=== PATIENT | female | born 1945 | race Caucasian/White ===

== ENCOUNTER 2017-06-01 20:16 | Inpatient (IN) | payer OTHER ==
[2017-06-01 20:16] VITALS: BMI 35.9
[2017-06-01] MEDS ORDERED: Sodium Chloride 0.9% 1,000 ML IV ONE (21:55)
[2017-06-01] MEDS ORDERED: Sodium Chloride 0.9% 1,000 ML ONE (22:01)
[2017-06-01 22:12] LABS: BASO # 0.1 K/uL (0.0-0.2); BASO % 0.4 % (0.0-2.0); EOS # 0.1 K/uL (0.0-0.7); EOS % 0.3 % (0.0-4.0); HEMATOCRIT 38.8 % (34.0-47.0); LYMPH # 3.9 K/uL (1.0-4.3); LYMPH % 16.6 % (20.0-40.0); MEAN CORPUSCULAR HEMOGLOBIN 28.4 pg (27.0-31.0); MEAN CORPUSCULAR HGB CONC 33.7 g/dL (33.0-37.0); MEAN PLATELET VOLUME 8.4 fL (7.2-11.7); MONO # 1.9 K/uL (0.0-0.8); NRBC % 0.1 % (0.0-2.0); RED CELL DISTRIBUTION WIDTH 13.7 % (11.5-14.5)
[2017-06-01 22:15] LABS: MEAN CELL VOLUME 84.3 fL (81.0-99.0); WHITE BLOOD COUNT 23.8 K/uL (4.8-10.8)
--- NOTE | 2017-06-01 22:23 | C.PDOC ---
History Of Present Illness 71 year old female who presents to the ER with a complaint of abdominal discomfort for the last 3 days, associated with increased belching and urinary frequency. Patient states she has not had any bowel movements for the last 3 days until today in the ER. Patient reports she also had a fever at home which was treated by tylenol and motrin by her daughter. Denies foul smelling urine, nausea, or vomiting. Time Seen by Provider: 06/01/17 21:36 Chief Complaint (Nursing): Abdominal Pain History Per: Patient History/Exam Limitations: no limitations Onset/Duration Of Symptoms: Days Current Symptoms Are (Timing): Still Present Radiation Of Pain To:: None Quality Of Discomfort: Unable To Describe Associated Symptoms: Fever, Constipation, Urinary Symptoms (Frequency). denies : Nausea, Vomiting Exacerbating Factors: None Alleviating Factors: None Recent travel outside of the [place]: No Abnormal Vaginal Bleeding: No Past Medical History Reviewed: Historical Data, Nursing Documentation, Vital Signs Vital Signs: Last Vital Signs Temp 98.9 F 06/01/17 20:30 Pulse 81 06/01/17 20:30 Resp 20 06/01/17 20:30 BP 126/75 06/01/17 20:30 Pulse Ox 97 06/01/17 22:29 - Medical History PMH: Diabetes, Gall Bladder Disease (ERCP STENT PLACEMENTPOST CHOLECYSTECTOMY), HTN Surgical History: Cholecystectomy, Endoscopy - [facility] Procedures ASSISTANCE WITH RESPIRATORY VENTILATION, <24 HRS, CPAP (08/11/16) DILATION OF COMMON BILE DUCT WITH INTRALUMINAL DEVICE, ENDO (08/22/16) EXTIRPATION OF MATTER FROM COMMON BILE DUCT, ENDO (08/22/16) RESECTION OF GALLBLADDER, PERCUTANEOUS ENDOSCOPIC APPROACH (08/11/16) Family History: States: Unknown Family Hx - Social History Hx Alcohol Use: No Hx Substance Use: No - Immunization History Hx Tetanus Toxoid Vaccination: No Hx Influenza Vaccination: No Hx Pneumococcal Vaccination: No Review Of Systems Constitutional: Positive for: Fever Gastrointestinal: Positive for: Abdominal Pain. Negative for: Nausea, Vomiting Genitourinary: Positive for: Frequency. Negative for: Other (Foul smelling urine) Physical Exam - Physical Exam Appears: Non-toxic, Other (Elderly female, belching) Skin: Normal Color, Warm, Dry Head: Atraumatic, Normacephalic Oral Mucosa: Moist Chest: Symmetrical, No Tenderness Cardiovascular: Rhythm Regular, No Murmur Respiratory: Normal Breath Sounds, No Rales, No Rhonchi, No Wheezing Gastrointestinal/Abdominal: Soft, Tenderness (Diffuse, Vague), No Guarding, No Rebound, Other (Obese. Negative Mcburney's. Negative Vaz's.) Neurological/Psych: Oriented x3, Normal Speech, Normal Cognition ED Course And Treatment - Laboratory Results Result Diagrams: 06/01/17 22:00 Lab Interpretation: Abnormal (UA 367 WBC's) ECG: Interpreted By Me ECG Rhythm: Sinus Rhythm ECG Interpretation: Normal O2 Sat by Pulse Oximetry: 97 (Room air) Pulse Ox Interpretation: Normal - Radiology CXR: Interpreted by Me CXR Interpretation: Yes: No Acute Disease - Other Rad abd x 2 X-Ray: Interpreted by Me (normal stool/gas pattern) Progress Note: Blood work, Urinalysis, cultures, and abdominal x-ray ordered. Pepcid, toradol, zofran, ceftriaxone, and IV fluids administered. 2230: JOHN hurtado, BC Reevaluation Time: 22:34 Reassessment Condition: Improved - Physician Consult Information Outcome Of Conversation: 223: d/w Dr. Burt, Hospitalist- ok to Admit Medical Decision Making Medical Decision Making: prob pyelo Defer CT for likely dx Disposition Doctor Will See Patient In The: Hospital Counseled Patient/Family Regarding: Studies Performed, Diagnosis - Disposition Disposition: HOSPITALIZED Disposition Time: 22:35 Condition: GOOD Forms: [facility] (Welsh) - Clinical Impression Clinical Impression: Pyelonephritis - Scribe Statement The provider has reviewed the documentation as recorded by the Scribmaryann Lowery All medical record entries made by the Dianibe were at my direction and personally dictated by me. I have reviewed the chart and agree that the record accurately reflects my personal performance of the history, physical exam, medical decision making, and the department course for this patient. I have also personally directed, reviewed, and agree with the discharge instructions and disposition.
[2017-06-01 22:25] LABS: RBC URINE 12 /hpf (0-3); URINE BACTERIA MOD (<OCC); URINE BILIRUBIN NEGATIVE (NEGATIVE); URINE BLOOD 1+ (NEGATIVE); URINE COLOR Amber (YELLOW); URINE GLUCOSE (UA) NORMAL (Normal); URINE KETONE NEGATIVE (NEGATIVE); URINE LEUKOCYTE ESTERASE 3+ Leu/uL (Negative); URINE PROTEIN 2+ mg/dL (NEGATIVE); URINE UROBILINOGEN NORMAL mg/dL (0.2-1.0); WBC CLUMPS MOD /hpf; WBC URINE 367 /hpf (0-5)
[2017-06-01] MEDS ORDERED: cefTRIAXone IV 1 gm in Dextros 50 ML IV ONE (22:27)
[2017-06-01 22:31] LABS: BILIRUBIN,TOTAL 1.1 mg/dL (0.2-1.3); POTASSIUM 4.7 mmol/L (3.6-5.2); TOTAL PROTEIN 8.3 g/dL (6.3-8.3)
[2017-06-01] MEDS ORDERED: cefTRIAXone IV 1 gm in Dextros 50 ML IVPB ONE (22:33)
[2017-06-01] MEDS ORDERED: Sodium Chloride 0.9% 1,000 ML IV SCH (23:30)
--- NOTE | 2017-06-01 23:38 | CP.PCM.HP ---
<Chantal Cruz - Last Filed: 06/01/17 23:34> History of Present Illness - History of Present Illness History of Present Illness: CC:"abdominal pain" HPI: 71 year old female with history of hypertension and diabetes who presents to the emergency room for abdominal pain. Through the patient's grandson translating the patient states the pain has been going on for about 5-6 days and getting worse. She states when she coughs the pain is worse. She states the pain is currently a 5/10. Denies that nothing makes it better or worse. She was not able to describe the abdominal pain but just states that it hurts. She did not have a bowel movement for 5 days but finally had one today. She states she has been having a fever of about 103 degrees around 5pm today and her daughter has been giving her Tylenol every 6 hours. The daughter states when she has the fever she become a bit delirious but otherwise she is oriented. Patient states she has been having chills, shortness of breath, dysuria, vomiting about 5-6 times today. She states she has been eating and drinking normally. She states the dysuria started about 5 days ago as well. She denies hematuria, emesis, chest pain, or palpitations. PMD: [facility] Past Medical History: Hypertension, Diabetes Past Surgical History: Hysterectomy; Lap Shira Family History: Denies Medications: 80/12.5mg Valsartan/HCTZ; Dulcolax; 81mg Aspirin daily; 20mg Famotidine daily; Novolin insulin 45 units during the day and 50 units in the evening Allergies: NKDA Social: Speaks Kazakh; Lives at home with daughter; denies smoking, illicit drug use or alcohol use Present on Admission - Present on Admission Any Indicators Present on Admission: No Review of Systems - Review of Systems Systems not reviewed;Unavailable: Language Barrier - Constitutional Constitutional: Chills, Excessive Sweating, Fever. absent: Headache - EENT Eyes: absent: Blurred Vision, Change in Vision Ears: absent: Dizziness Nose/Mouth/Throat: absent: Nasal Congestion, Post Nasal Drip, Sore Throat - Cardiovascular Cardiovascular: Dyspnea. absent: Chest Pain - Respiratory Respiratory: Cough, Dyspnea. absent: Wheezing - Gastrointestinal Gastrointestinal: Abdominal Pain, Belching, Constipation, Vomiting. absent: Diarrhea, Hematemesis, Hematochezia - Genitourinary Genitourinary: Dysuria. absent: Hematuria - Musculoskeletal Musculoskeletal: absent: Numbness, Tingling - Neurological Neurological: absent: Confusion, Dizziness, Headaches - Psychiatric Psychiatric: Confusion (when she has a fever ) Past Patient History - Infectious Disease Hx of Infectious Diseases: None - Past Medical History & Family History Past Medical History?: Yes - Past Social History Smoking Status: Never Smoked - CARDIAC Hx Hypertension: Yes - PULMONARY Hx Respiratory Disorders: No - NEUROLOGICAL Hx Neurological Disorder: No - HEENT Hx HEENT Problems: No - RENAL Hx Chronic Kidney Disease: No - ENDOCRINE/METABOLIC Hx Endocrine Disorders: Yes Hx Diabetes Mellitus Type 2: Yes - HEMATOLOGICAL/ONCOLOGICAL Hx Blood Disorders: No - INTEGUMENTARY Hx Dermatological Problems: No - MUSCULOSKELETAL/RHEUMATOLOGICAL Hx Musculoskeletal Disorders: Yes Hx Falls: No Hx Osteoarthritis: Yes - GASTROINTESTINAL Hx Gall Bladder Disease: Yes (ERCP STENT PLACEMENTPOST CHOLECYSTECTOMY) - GENITOURINARY/GYNECOLOGICAL Hx Genitourinary Disorders: Yes (FIBROID UTERUS HX) - PSYCHIATRIC Hx Substance Use: No - SURGICAL HISTORY Hx Cholecystectomy: Yes - ANESTHESIA Hx Anesthesia: Yes Hx Anesthesia Reactions: No Hx Malignant Hyperthermia: No Meds Allergies/Adverse Reactions: Allergies Allergy/AdvReac Type Severity Reaction Status Date / Time No Known Allergies Allergy Verified 11/02/16 09:42 Physical Exam - Constitutional Appears: No Acute Distress - Head Exam Head Exam: ATRAUMATIC, NORMAL INSPECTION, NORMOCEPHALIC - Eye Exam Eye Exam: EOMI, Normal appearance, PERRL Pupil Exam: NORMAL ACCOMODATION - ENT Exam ENT Exam: Mucous Membranes Moist - Neck Exam Neck exam: Positive for: Normal Inspection - Respiratory Exam Respiratory Exam: Clear to Auscultation Bilateral, NORMAL BREATHING PATTERN. absent: Rales, Rhonchi, Wheezes, Stridor - Cardiovascular Exam Cardiovascular Exam: REGULAR RHYTHM, RRR, +S1, +S2 - GI/Abdominal Exam GI & Abdominal Exam: Normal Bowel Sounds, Soft, Tenderness (diffuse tenderness) - Back Exam Back exam: CVA tenderness (R). absent: CVA tenderness (L) - Neurological Exam Neurological exam: Alert, CN II-XII Intact, Oriented x3 - Expanded Neurological Exam Expanded Patient oriented to: person, place, time Cranial nerves: EOM's Intact: Normal Neuro motor strength exam: Left Upper Extremity: 5, Right Upper Extremity: 5, Left Lower Extremity: 5, Right Lower Extremity: 5 Coma Scale Eye Opening: SPONTANEOUS Coma Scale Motor Response: OBEYS COMMANDS - Psychiatric Exam Psychiatric exam: Normal Affect, Normal Mood - Skin Skin Exam: Normal Color, Warm Results - Vital Signs Recent Vital Signs: Last Vital Signs Temp 98.9 F 06/01/17 20:30 Pulse 81 06/01/17 20:30 Resp 20 06/01/17 20:30 BP 126/75 06/01/17 20:30 Pulse Ox 97 06/01/17 22:35 - Labs Result Diagrams: 06/01/17 22:00 06/01/17 22:00 Labs: Laboratory Results - last 24 hr 06/01/17 22:34 POC Glucose (mg/dL) 244 H Assessment & Plan - Assessment and Plan (Free Text) Assessment: 1.) Abdominal Pain secondary to UTI vs. Pyleonephritis - f/u official report of Abdominal obstructive series X-ray - f/u urine culture and blood culture - Ceftriaxone - Tylenol PRN 2.) Dehydration - n/s @75cc/hr 3.) History of Hypertension - 81mg Aspirin daily - HCTZ 12.5mg PO daily - Cozaar 50mg PO daily 4.) History of Diabetes - Low ISS - Accuchecks - Clear Liquids (low carbohydrate)- advance as tolerated 5.) History of Constipation - Dulcolax 6.) Prophylaxis - heparin SC - Famotidine 20mg PO daily - PT/OT <Wing Burt - Last Filed: 06/02/17 06:21> Results - Vital Signs Recent Vital Signs: Last Vital Signs Temp 97.7 F 06/02/17 01:06 Pulse 72 06/02/17 01:06 Resp 20 06/02/17 01:06 BP 108/58 L 06/02/17 01:06 Pulse Ox 96 06/02/17 01:06 - Labs Result Diagrams: 06/01/17 22:00 06/01/17 22:00 Labs: Laboratory Results - last 24 hr 06/01/17 22:34 POC Glucose (mg/dL) 244 H Assessment & Plan - Date & Time Date: 06/02/17 (I have seen and examined the patient. I agree with the findings and plan of care as documented by Dr. Cruz. Patient with pyelonephritis and nauses/vomiting. Rocephin IV. Urine and blood cultures. Give IVF for dehydration. Monitor renal function. Also with history of diabetes. Accuchecks. NISS. Hold home meds for now due to vomiting and not eating normally. Monitor for acute changes.) Time: 06:18 Attending/Attestation - Attestation I have personally seen and examined this patient.: Yes I have fully participated in the care of the patient.: Yes I have reviewed all pertinent clinical information: Yes
[2017-06-02] MEDS: (Novolin R) Insulin Human Regular 100 units/ml vial SC SCH ×4 (07:50→21:47)
--- NOTE | 2017-06-02 08:50 | RAD ---
PROCEDURE: Radiographs of the chest and abdomen (obstructive series) HISTORY: abd pain COMPARISON: Comparison is made to the previous chest x-ray dated 08/23/[address] of the abdomen dated 11/08/2016 TECHNIQUE: AP radiograph of the chest, with upright and supine radiographs of the abdomen. FINDINGS: CHEST: Lungs: Re- demonstration of scattered reticular opacities in the lungs Cardiovascular: The cardiac silhouette is mildly enlarged. Pleura: No pleural fluid. No pneumothorax. Other findings: None. ABDOMEN AND PELVIS: Bowel: Unremarkable bowel gas pattern. No evidence of mechanical obstruction. Free air: None. Bones: Unremarkable. Other findings: None. IMPRESSION: No evidence of acute pathology in the chest and abdomen. . No evidence of mechanical bowel obstruction.
--- NOTE | 2017-06-02 09:07 | CP.PCM.PN ---
Subjective - Date & Time of Evaluation Date of Evaluation: 06/02/17 Time of Evaluation: 09:00 - Subjective Subjective: Medical Attending Note: Patient seen and examined this morning. Translation via In Demand Voice: [id number] with belarusian Patient is moaning at bedside. Reporting she feels cold. Patient reporting lower abdomen pain and burning when she pees. Unable to get further history in spite of print traffic manager device. Objective - Vital Signs/Intake and Output Vital Signs (last 24 hours): Temp Pulse Resp BP Pulse Ox 99.5 F 95 H 20 110/69 96 06/02/17 08:15 06/02/17 08:15 06/02/17 08:15 06/02/17 08:15 06/02/17 08:15 Intake and Output: 06/02/17 06/02/17 06:59 18:59 Intake Total 720 Balance 720 - Medications Medications: Current Medications Acetaminophen (Tylenol 325mg Tab) 650 mg PO Q6 PRN PRN Reason: Pain, moderate (4-7) Aspirin (Aspirin) 81 mg PO DAILY [facility] Bisacodyl (Dulcolax) 5 mg PO DAILY [facility] Famotidine (Pepcid) 20 mg PO DAILY [facility] Heparin Sodium (Porcine) (Heparin) 5,000 units SC Q8 [facility] Last Admin: 06/02/17 05:55 Dose: 5,000 units Hydrochlorothiazide (Microzide) 12.5 mg PO DAILY [facility] Sodium Chloride (Sodium Chloride 0.9%) 1,000 mls @ 75 mls/hr IV .[id number] [facility] Last Admin: 06/02/17 01:04 Dose: 75 mls/hr Ceftriaxone Sodium 1 gm/ (Sodium Chloride) 100 mls @ 100 mls/hr IVPB Q12H [facility] Insulin Human Regular (Novolin R) 0 unit SC ACHS GEORGE PRN Reason: Protocol Last Admin: 06/02/17 07:50 Dose: 1 unit Losartan Potassium (Cozaar) 50 mg PO DAILY [facility] - Constitutional Appears: In Acute Distress, Chronically Ill - Head Exam Head Exam: NORMAL INSPECTION - Eye Exam Eye Exam: EOMI - ENT Exam ENT Exam: Mucous Membranes Dry - Respiratory Exam Respiratory Exam: Clear to Ausculation Bilateral, NORMAL BREATHING PATTERN. absent: Rales, Rhonchi, Wheezes - Cardiovascular Exam Cardiovascular Exam: RRR, +S1, +S2 - GI/Abdominal Exam GI & Abdominal Exam: Distended, Soft, Tenderness (lower abdomen both quadrant), Normal Bowel Sounds, Rebound. absent: Firm, Guarding, Rigid Additional comments: obese habitus - Extremities Exam Extremities Exam: Normal Capillary Refill. absent: Pedal Edema, Tenderness - Back Exam Back Exam: CVA tenderness (L) - Neurological Exam Neurological Exam: Alert, Awake - Skin Skin Exam: Dry, Intact, Normal Color, Warm Assessment and Plan - Assessment and Plan (Free Text) Assessment: Assessment/Plan 1.) SIRS * Suspicion for Sepsis; unconfirmed source of infection * Tmax: 99.5F, WBC: 23.8 * Blood cultures (06/01): pending * Urine culture (06/01): pending * Abdomen Obstructive Series (06/02/17): no evidence of acute pathology in the chest and abdomen. No evidence of mechanical bowel obstruction * Ordered for CT Abdomen/Pelvis PO and IV contrast * Rocephin 1 gram IV Q 12hours (active since 06/02/17) * increase NS 100cc/hr * UA: 2+ protein, +blood 3, esterase, pyuria, hematuria, dirty catch (squamous: 30) * Awaiting blood work from this work * Lipase: normal 2) Possible pyelonphritis * Suspicion for Sepsis; unconfirmed source of infection * Tmax: 99.5F, WBC: 23.8 * Blood cultures (06/01): pending * Urine culture (06/01): pending * Abdomen Obstructive Series (06/02/17): no evidence of acute pathology in the chest and abdomen. No evidence of mechanical bowel obstruction * Ordered for CT Abdomen/Pelvis PO and IV contrast * Rocephin 1 gram IV Q 12hours (active since 06/02/17) * increase NS 100cc/hr * UA: 2+ protein, +blood 3, esterase, pyuria, hematuria, dirty catch (squamous: 30); repeat UA * Awaiting blood work from this work * Lipase: normal 3.) History of Hypertension * Aspirin 81mg PO daily * Discontinued HCTZ 12.5mg PO daily-->patient is dehydration and monitor for signs of sepsis * Cozaar 50mg PO daily (hold SBP<100) * Start NS 100cc/hr 4.) History of Diabetes * Accuchecks QAC and HS * Pending a1c * Diabetic clear liquids * Low RISS 5.) History of Constipation * Abdomen Obstructive Series (06/02/17): no evidence of acute pathology in the chest and abdomen. No evidence of mechanical bowel obstruction * Colace 100mg PO BID 6.) Prophylaxis * Heparin 5000 units subqQ 8hours for DVT ppx * Pepcid 20mg PO daily for GI ppx * PT/OT eval * Florastor 250mg PO * NS 100cc/hr
[2017-06-02] MEDS: Saccharomyces Boulardi 250 mg Cap PO SCH ×2 (10:23→18:00)
[2017-06-02] MEDS: Bisacodyl 5mg EC Tab PO SCH (10:24)
[2017-06-02] MEDS: Sodium Chloride 0.9% 1,000 ML IV SCH (10:25)
[2017-06-02] MEDS ORDERED: Iohexol 240 (50 ml) PO ONE (12:00)
[2017-06-02 12:19] LABS: BASO # 0.1 K/uL (0.0-0.2); BASO % 0.3 % (0.0-2.0); EOS % 0.1 % (0.0-4.0); HEMATOCRIT 37.1 % (34.0-47.0); LYMPH # 2.1 K/uL (1.0-4.3); LYMPH % 12.3 % (20.0-40.0); MEAN CORPUSCULAR HEMOGLOBIN 28.1 pg (27.0-31.0); MEAN CORPUSCULAR HGB CONC 33.4 g/dL (33.0-37.0); MEAN PLATELET VOLUME 8.4 fL (7.2-11.7); MONO # 1.3 K/uL (0.0-0.8); MONO % 7.6 % (0.0-10.0); NRBC % 0.1 % (0.0-2.0); RED CELL DISTRIBUTION WIDTH 13.5 % (11.5-14.5); WHITE BLOOD COUNT 17.4 K/uL (4.8-10.8)
[2017-06-02 12:28] LABS: CHLORIDE 96 mmol/L (98-107)
[2017-06-02 12:29] LABS: POTASSIUM 4.1 mmol/L (3.6-5.2); SODIUM 131 mmol/L (132-148)
[2017-06-02 12:31] LABS: ALKALINE PHOSPHATASE 125 U/L (38-126); ALT/SGPT 27 U/L (9-52); AST/SGOT 24 U/L (14-36); BILIRUBIN,TOTAL 1.1 mg/dL (0.2-1.3); BLOOD UREA NITROGEN 19 mg/dL (7-17); CARBON DIOXIDE 26 mmol/L (22-30); GFR AFRICAN-AMERICAN > 60; TOTAL PROTEIN 7.5 g/dL (6.3-8.3)
[2017-06-02 12:32] LABS: CALCIUM 8.4 mg/dl (8.6-10.4); GLUCOSE,RANDOM 197 mg/dL (65-105); MAGNESIUM 1.8 mg/dL (1.6-2.3)
[2017-06-02] MEDS ORDERED: Iodixanol 320 MG/ML 200 ML BOTTLE IV ONE (14:22)
--- NOTE | 2017-06-02 16:54 | CT ---
PROCEDURE: CT Abdomen and Pelvis with contrast HISTORY: abdominal pain, pylenoephritis COMPARISON: Comparison is made to the previous study dated 11/08/2016 TECHNIQUE: Contrast dose: 100 mL Visipaque 320. Axial and reformatted coronal and sagittal CT images of the abdomen and pelvis were obtained after IV and oral contrast administration. Radiation dose: Total exam DLP = 1134.7 mGy-cm. This CT exam was performed using one or more of the following dose reduction techniques: Automated exposure control, adjustment of the mA and/or kV according to patient size, and/or use of iterative reconstruction technique. FINDINGS: LOWER THORAX: No evidence of acute pathology at the lung bases. The heart is mildly enlarged. LIVER: Unremarkable. No gross lesion or ductal dilatation. GALLBLADDER AND BILE DUCTS: Status post cholecystectomy. The common bile duct is mildly dilated. PANCREAS: Unremarkable. No gross lesion or ductal dilatation. SPLEEN: Unremarkable. ADRENALS: Unremarkable. No mass. KIDNEYS AND URETERS: There is heterogeneous enhancement at the right kidney with moderate size focal area of decreased enhancement at the mid to upper right renal cortex. Findings suggestive of pyelonephritis. There are bilateral mild hydronephrosis more prominent on the left without evidence of obstructing stone. VASCULATURE: Unremarkable. No aortic aneurysm. BOWEL: Unremarkable. No obstruction. No gross mural thickening. APPENDIX: There is no evidence of appendicitis. PERITONEUM: Unremarkable. No free fluid. No free air. LYMPH NODES: Unremarkable. No enlarged lymph nodes. BLADDER: Mild circumferential urinary bladder wall thickening is noted. REPRODUCTIVE: There is interval appearance of low-attenuation cystic masslike structure at the lower uterine segment and uterine cervix measures 6.2 centimeter in the transverse diameter and 3.5 centimeter in the AP diameter since the previous exam. BONES: No acute fracture. OTHER FINDINGS: None. IMPRESSION: Moderate size focal area of heterogeneous decreased enhancement at the right renal cortex consistent with the patient's known history of pyelonephritis. No evidence of abscess formation. Interval appearance of mild bilateral hydronephrosis and hydroureter since the previous exam. Low-attenuation cystic mass lesion at the lower uterine segment and uterine cervix new when compared to the previous study. Further assessment of the uterus by ultrasound and/or MRI is suggested. [id number] urinary bladder wall thickening suspicious for cystitis. Otherwise no evidence of acute pathology in the abdomen and pelvis.
[2017-06-03] MEDS: (Novolin R) Insulin Human Regular 100 units/ml vial SC SCH ×4 (07:54→21:32)
--- NOTE | 2017-06-03 09:21 | CP.PCM.PN ---
<Darius Schumacher - Last Filed: 06/03/17 19:53> Subjective - Date & Time of Evaluation Date of Evaluation: 06/03/17 Time of Evaluation: 09:20 - Subjective Subjective: PGY1 Note for Dr. Gaspar HPI: Patient seen and examined at bedside. States pain is resolving. She is still urinating frequently. Complaining of bilateral flank pain, abdominal pain and a MEANS. No CP, SOB, F, N/V/D. Patient has been having chills. [employer] used [employer] [id number] Objective - Vital Signs/Intake and Output Vital Signs (last 24 hours): Temp Pulse Resp BP Pulse Ox 98.1 F 78 20 100/67 97 06/03/17 08:00 06/03/17 08:00 06/03/17 08:00 06/03/17 08:00 06/03/17 08:00 Intake and Output: 06/03/17 06/03/17 06:59 18:59 Intake Total 950 Balance 950 - Medications Medications: Current Medications Acetaminophen (Tylenol 325mg Tab) 650 mg PO Q6 PRN PRN Reason: Pain, moderate (4-7) Last Admin: 06/03/17 01:03 Dose: 650 mg Aspirin (Aspirin) 81 mg PO DAILY [facility] Last Admin: 06/02/17 10:23 Dose: 81 mg Bisacodyl (Dulcolax) 5 mg PO DAILY [facility] Last Admin: 06/02/17 10:24 Dose: 5 mg Docusate Sodium (Colace) 100 mg PO BID [facility] Last Admin: 06/02/17 18:00 Dose: 100 mg Famotidine (Pepcid) 20 mg PO DAILY [facility] Last Admin: 06/02/17 10:23 Dose: 20 mg Heparin Sodium (Porcine) (Heparin) 5,000 units SC Q8 [facility] Last Admin: 06/03/17 06:45 Dose: 5,000 units Ceftriaxone Sodium 1 gm/ (Sodium Chloride) 100 mls @ 100 mls/hr IVPB Q12H [facility] Last Admin: 06/02/17 21:48 Dose: 100 mls/hr Sodium Chloride (Sodium Chloride 0.9%) 1,000 mls @ 100 mls/hr IV .Q10H [facility] Last Admin: 06/02/17 10:25 Dose: 100 mls/hr Insulin Human Regular (Novolin R) 0 unit SC ACHS [facility] PRN Reason: Protocol Last Admin: 06/03/17 07:54 Dose: 3 unit Losartan Potassium (Cozaar) 50 mg PO DAILY [facility] Last Admin: 06/02/17 10:23 Dose: 50 mg Ondansetron HCl (Zofran Inj) 4 mg IVP Q6H PRN PRN Reason: Nausea/Vomiting Saccharomyces Boulardii (Florastor) 250 mg PO BID [facility] Last Admin: 06/02/17 18:00 Dose: 250 mg - Labs Labs: 06/02/17 12:09 06/02/17 12:09 - Constitutional Appears: Well, Non-toxic, No Acute Distress - Head Exam Head Exam: ATRAUMATIC, NORMAL INSPECTION, NORMOCEPHALIC - Eye Exam Eye Exam: EOMI Pupil Exam: NORMAL ACCOMODATION - ENT Exam ENT Exam: Mucous Membranes Moist - Respiratory Exam Respiratory Exam: Clear to Ausculation Bilateral, NORMAL BREATHING PATTERN - Cardiovascular Exam Cardiovascular Exam: REGULAR RHYTHM - GI/Abdominal Exam GI & Abdominal Exam: Soft, Tenderness (suprapubic), Normal Bowel Sounds. absent : Distended - Extremities Exam Extremities Exam: absent: Joint Swelling, Tenderness - Back Exam Back Exam: CVA tenderness (L), CVA tenderness (R) - Neurological Exam Neurological Exam: Alert, Awake, Oriented x3 - Psychiatric Exam Psychiatric exam: Normal Affect, Normal Mood - Skin Skin Exam: Dry, Intact, Normal Color, Warm Assessment and Plan - Assessment and Plan (Free Text) Assessment: Pyelonphritis * Blood cultures * negative x24 * Urine culture * Gram negative Toby * CT Abdomen/Pelvis * Evidence of Pyelo with no abscess * Evidence of cystitis * Cystic mass lesion in lower uterine segment * Rocephin 1 gram IV Q12 * NS 100cc/hr * No follow up UA needed bc + urine cultures Hypertension * Aspirin 81mg PO daily * Cozaar 50mg PO daily Diabetes * Accuchecks QAC and HS * A1C 9.1 * Diabetic clear liquids * Low RISS Constipation * Colace 100mg PO BID Prophylaxis * Heparin 5000 units SC 8hours for DVT ppx * Pepcid 20mg PO daily for GI ppx * PT/OT eval * Florastor 250mg PO * NS 100cc/hr <Katy Gaspar V - Last Filed: 06/04/17 07:50> Objective - Vital Signs/Intake and Output Vital Signs (last 24 hours): Temp Pulse Resp BP Pulse Ox 98.9 F 90 20 123/74 96 06/03/17 23:50 06/03/17 23:50 06/03/17 23:50 06/03/17 23:50 06/03/17 16:23 Intake and Output: 06/04/17 06/04/17 06:59 18:59 Intake Total 1940 Output Total 2 Balance 1938 - Medications Medications: Current Medications Acetaminophen (Tylenol 325mg Tab) 650 mg PO Q6 PRN PRN Reason: Pain, moderate (4-7) Last Admin: 06/04/17 06:15 Dose: 650 mg Aspirin (Aspirin) 81 mg PO DAILY [facility] Last Admin: 06/03/17 09:44 Dose: 81 mg Bisacodyl (Dulcolax) 5 mg PO DAILY [facility] Last Admin: 06/03/17 09:45 Dose: 5 mg Docusate Sodium (Colace) 100 mg PO BID [facility] Last Admin: 06/03/17 17:50 Dose: 100 mg Famotidine (Pepcid) 20 mg PO DAILY [facility] Last Admin: 06/03/17 09:46 Dose: 20 mg Heparin Sodium (Porcine) (Heparin) 5,000 units SC Q8 [facility] Last Admin: 06/04/17 06:07 Dose: 5,000 units Ceftriaxone Sodium 1 gm/ (Sodium Chloride) 100 mls @ 100 mls/hr IVPB Q12H [facility] Last Admin: 06/03/17 21:37 Dose: 100 mls/hr Sodium Chloride (Sodium Chloride 0.9%) 1,000 mls @ 100 mls/hr IV .Q10H [facility] Last Admin: 06/04/17 01:15 Dose: Not Given Insulin Human Regular (Novolin R) 0 unit SC ACHS [facility] PRN Reason: Protocol Last Admin: 06/03/17 21:32 Dose: Not Given Losartan Potassium (Cozaar) 50 mg PO DAILY [facility] Last Admin: 06/03/17 09:45 Dose: 50 mg Ondansetron HCl (Zofran Inj) 4 mg IVP Q6H PRN PRN Reason: Nausea/Vomiting Last Admin: 06/04/17 05:55 Dose: 4 mg Saccharomyces Boulardii (Florastor) 250 mg PO BID [facility] Last Admin: 06/03/17 17:50 Dose: 250 mg - Labs Labs: 06/04/17 07:05 06/03/17 11:19 Attending/Attestation - Attestation I have personally seen and examined this patient.: Yes I have fully participated in the care of the patient.: Yes I have reviewed all pertinent clinical information, including history, physical exam and plan: Yes Notes (Text): This is late computer entry for 06/03/17. Patient seen, examined and case discussed with day-time resident. [employer] trust clerk Marcos Tovar noted in resident note used for translation for the patient. Patient seen, awake, alert, oriented X3, much improved compared to my visit yesterday. Patient is able to sit upright and not moaning in pain. Left CVA tenderness is improving. Brief discussed CT abdomen/Pelvis with the patient consistent with pyelonephritis. She will need follow-up pelvic US for cystic mass at the lower uterine segement and uterine cervix. Held off at this time since patient is recovering for urine tract infection. Assessment/Plan 1.) SIRS * Suspicion for Sepsis; source of infection: uti/pyelonephritis, Tmax: 99.5F, WBC: 23.8 on admission; lactate acid: 1.2-->code sepsis not called given normal lactate * Blood cultures (06/01): no growth after 48 hours * Urine culture (06/01): gram negative toby-->awaiting speciation * Abdomen Obstructive Series (06/02/17): no evidence of acute pathology in the chest and abdomen. No evidence of mechanical bowel obstruction * CT Abdomen/Pelvis PO and IV contrast (06/02): moderate size focal area of heterogenous decreased right renal cortex consistent with patient's known history of pyelonephritis. No evidence of abscess formation. Interval appearance of mild bilateral hydronephrosis and hydroureter since the previous exam. Low attenuation cystic mass lesion at lower uterine segment and uterine cervix. Mild to moderate urinary bladder wall thickening suspicious for cystitis. * Rocephin 1 gram IV Q 12hours (active since 06/02/17) * iNS 100cc/hr * UA: 2+ protein, +blood 3, esterase, pyuria, hematuria, dirty catch (squamous: 30) * Awaiting blood work from this work * Lipase: normal 2) Possible pyelonphritis * Suspicion for Sepsis; source of infection: uti/pyelonephritis, Tmax: 99.5F, WBC: 23.8 on admission; lactate acid: 1.2-->code sepsis not called given normal lactate * Blood cultures (06/01): no growth after 48 hours * Urine culture (06/01): gram negative toby-->awaiting speciation * Abdomen Obstructive Series (06/02/17): no evidence of acute pathology in the chest and abdomen. No evidence of mechanical bowel obstruction * CT Abdomen/Pelvis PO and IV contrast (06/02): moderate size focal area of heterogenous decreased right renal cortex consistent with patient's known history of pyelonephritis. No evidence of abscess formation. Interval appearance of mild bilateral hydronephrosis and hydroureter since the previous exam. Low attenuation cystic mass lesion at lower uterine segment and uterine cervix. Mild to moderate urinary bladder wall thickening suspicious for cystitis. * Rocephin 1 gram IV Q 12hours (active since 06/02/17) * increase NS 100cc/hr * UA: 2+ protein, +blood 3, esterase, pyuria, hematuria, dirty catch (squamous: 30); repeat UA * Awaiting blood work from this work * Lipase: normal 3.) History of Hypertension * Aspirin 81mg PO daily * Discontinued HCTZ 12.5mg PO daily-->patient is dehydration and monitor for signs of sepsis * Cozaar 50mg PO daily (hold SBP<100) * Start NS 100cc/hr 4.) History of Diabetes * Accuchecks QAC and HS * Pending a1c * Diabetic clear liquids * Low RISS 5.) History of Constipation * Abdomen Obstructive Series (06/02/17): no evidence of acute pathology in the chest and abdomen. No evidence of mechanical bowel obstruction * Colace 100mg PO BID 6.) Prophylaxis * Heparin 5000 units subqQ 8hours for DVT ppx * Pepcid 20mg PO daily for GI ppx * PT/OT eval * Florastor 250mg PO bid * NS 100cc/hr
[2017-06-03] MEDS: Bisacodyl 5mg EC Tab PO SCH (09:45)
[2017-06-03] MEDS: Saccharomyces Boulardi 250 mg Cap PO SCH ×2 (09:45→17:50)
[2017-06-03 11:35] LABS: BASO # 0.1 K/uL (0.0-0.2); BASO % 0.4 % (0.0-2.0); EOS % 0.2 % (0.0-4.0); HEMATOCRIT 34.6 % (34.0-47.0); LYMPH # 1.7 K/uL (1.0-4.3); LYMPH % 12.4 % (20.0-40.0); MEAN CORPUSCULAR HEMOGLOBIN 28.1 pg (27.0-31.0); MEAN CORPUSCULAR HGB CONC 33.4 g/dL (33.0-37.0); MEAN PLATELET VOLUME 8.3 fL (7.2-11.7); MONO # 1.1 K/uL (0.0-0.8); MONO % 8.2 % (0.0-10.0); RED CELL DISTRIBUTION WIDTH 13.4 % (11.5-14.5); WHITE BLOOD COUNT 13.6 K/uL (4.8-10.8)
[2017-06-03 11:52] LABS: ALB/GLOB RATIO 0.9 (1.0-2.1); ALKALINE PHOSPHATASE 137 U/L (38-126); ALT/SGPT 25 U/L (9-52); AST/SGOT 27 U/L (14-36); BILIRUBIN,TOTAL 0.9 mg/dL (0.2-1.3); BLOOD UREA NITROGEN 16 mg/dL (7-17); CALCIUM 8.4 mg/dl (8.6-10.4); CARBON DIOXIDE 27 mmol/L (22-30); CHLORIDE 95 mmol/L (98-107); GFR AFRICAN-AMERICAN > 60; GLUCOSE,RANDOM 238 mg/dL (65-105); MAGNESIUM 1.9 mg/dL (1.6-2.3); POTASSIUM 4.2 mmol/L (3.6-5.2); SODIUM 134 mmol/L (132-148); TOTAL PROTEIN 7.3 g/dL (6.3-8.3)
[2017-06-03 12:10] LABS: PHOSPHOROUS 1.5 mg/dL (2.5-4.5)
[2017-06-03] MEDS: Sodium Chloride 0.9% 1,000 ML IV SCH (15:12)
[2017-06-04] MEDS: Sodium Chloride 0.9% 1,000 ML IV SCH ×4 (00:22→21:55)
[2017-06-04 07:17] LABS: BASO # 0.1 K/uL (0.0-0.2); BASO % 0.8 % (0.0-2.0); EOS # 0.1 K/uL (0.0-0.7); EOS % 1.2 % (0.0-4.0); HEMATOCRIT 31.9 % (34.0-47.0); LYMPH # 2.2 K/uL (1.0-4.3); LYMPH % 20.2 % (20.0-40.0); MEAN CELL VOLUME 84.5 fL (81.0-99.0); MEAN CORPUSCULAR HEMOGLOBIN 28.6 pg (27.0-31.0); MEAN CORPUSCULAR HGB CONC 33.9 g/dL (33.0-37.0); MEAN PLATELET VOLUME 7.8 fL (7.2-11.7); MONO % 9.3 % (0.0-10.0); RED CELL DISTRIBUTION WIDTH 13.5 % (11.5-14.5)
--- NOTE | 2017-06-04 07:19 | CP.PCM.PN ---
<Darius Schumacher - Last Filed: 06/04/17 18:55> Subjective - Date & Time of Evaluation Date of Evaluation: 06/04/17 Time of Evaluation: 07:18 - Subjective Subjective: PGY1 Note for Dr. Rosado HPI: Patient seen and examined at bedside. Doing well. Still has belly and back pain. States she is constipated. Did not have any subjective fevers or shaking chills as beofore. Denies CP, SOB, N/V/D. Objective - Vital Signs/Intake and Output Vital Signs (last 24 hours): Temp Pulse Resp BP Pulse Ox 98.9 F 90 20 123/74 96 06/03/17 23:50 06/03/17 23:50 06/03/17 23:50 06/03/17 23:50 06/03/17 16:23 Intake and Output: 06/04/17 06/04/17 06:59 18:59 Intake Total 1940 Output Total 2 Balance 1938 - Medications Medications: Current Medications Acetaminophen (Tylenol 325mg Tab) 650 mg PO Q6 PRN PRN Reason: Pain, moderate (4-7) Last Admin: 06/04/17 06:15 Dose: 650 mg Aspirin (Aspirin) 81 mg PO DAILY [facility] Last Admin: 06/03/17 09:44 Dose: 81 mg Bisacodyl (Dulcolax) 5 mg PO DAILY [facility] Last Admin: 06/03/17 09:45 Dose: 5 mg Docusate Sodium (Colace) 100 mg PO BID [facility] Last Admin: 06/03/17 17:50 Dose: 100 mg Famotidine (Pepcid) 20 mg PO DAILY [facility] Last Admin: 06/03/17 09:46 Dose: 20 mg Heparin Sodium (Porcine) (Heparin) 5,000 units SC Q8 [facility] Last Admin: 06/04/17 06:07 Dose: 5,000 units Ceftriaxone Sodium 1 gm/ (Sodium Chloride) 100 mls @ 100 mls/hr IVPB Q12H [facility] Last Admin: 06/03/17 21:37 Dose: 100 mls/hr Sodium Chloride (Sodium Chloride 0.9%) 1,000 mls @ 100 mls/hr IV .Q10H [facility] Last Admin: 06/04/17 01:15 Dose: Not Given Insulin Human Regular (Novolin R) 0 unit SC ACHS [facility] PRN Reason: Protocol Last Admin: 06/03/17 21:32 Dose: Not Given Losartan Potassium (Cozaar) 50 mg PO DAILY [facility] Last Admin: 06/03/17 09:45 Dose: 50 mg Ondansetron HCl (Zofran Inj) 4 mg IVP Q6H PRN PRN Reason: Nausea/Vomiting Last Admin: 06/04/17 05:55 Dose: 4 mg Saccharomyces Boulardii (Florastor) 250 mg PO BID [facility] Last Admin: 06/03/17 17:50 Dose: 250 mg - Labs Labs: 06/03/17 11:19 06/03/17 11:19 - Constitutional Appears: Well, Non-toxic, No Acute Distress - Head Exam Head Exam: ATRAUMATIC, NORMAL INSPECTION, NORMOCEPHALIC - Eye Exam Eye Exam: EOMI Pupil Exam: NORMAL ACCOMODATION - ENT Exam ENT Exam: Mucous Membranes Moist - Neck Exam Neck Exam: Full ROM, Normal Inspection - Respiratory Exam Respiratory Exam: Clear to Ausculation Bilateral, NORMAL BREATHING PATTERN - Cardiovascular Exam Cardiovascular Exam: REGULAR RHYTHM - GI/Abdominal Exam GI & Abdominal Exam: Soft, Tenderness (suprapubic), Normal Bowel Sounds. absent : Distended - Extremities Exam Extremities Exam: absent: Joint Swelling, Tenderness - Back Exam Back Exam: CVA tenderness (L), CVA tenderness (R) - Neurological Exam Neurological Exam: Alert, Awake, Oriented x3 - Psychiatric Exam Psychiatric exam: Normal Affect, Normal Mood - Skin Skin Exam: Dry, Intact, Normal Color, Warm Assessment and Plan - Assessment and Plan (Free Text) Assessment: Pyelonphritis * ID (Susy) * Blood cultures * negative x48h * Urine culture * ESBL * CT Abdomen/Pelvis * Evidence of Pyelo with no abscess * Evidence of cystitis * Cystic mass lesion in lower uterine segment * Primaxin 500 IV Q8 * NS 100cc/hr Hypertension * Aspirin 81mg PO daily * Cozaar 50mg PO daily Diabetes * Accuchecks QAC and HS * A1C 9.1 * Diabetic clear liquids * Low RISS Constipation * Colace 100mg PO BID Prophylaxis * Heparin 5000 units SC 8hours for DVT ppx * Pepcid 20mg PO daily for GI ppx * PT/OT eval * Florastor 250mg PO * NS 100cc/hr <Armando Rosado - Last Filed: 06/04/17 20:33> Objective - Vital Signs/Intake and Output Vital Signs (last 24 hours): Temp Pulse Resp BP Pulse Ox 97.8 F 80 20 125/85 99 06/04/17 16:08 06/04/17 16:08 06/04/17 16:08 06/04/17 16:08 06/04/17 16:08 Intake and Output: 06/04/17 06/05/17 18:59 06:59 Intake Total 1200 Balance 1200 - Medications Medications: Current Medications Acetaminophen (Tylenol 325mg Tab) 650 mg PO Q6 PRN PRN Reason: Pain, moderate (4-7) Last Admin: 06/04/17 06:15 Dose: 650 mg Aspirin (Aspirin) 81 mg PO DAILY [facility] Last Admin: 06/04/17 09:03 Dose: 81 mg Bisacodyl (Dulcolax) 5 mg PO DAILY [facility] Last Admin: 06/04/17 09:05 Dose: 5 mg Docusate Sodium (Colace) 100 mg PO BID [facility] Last Admin: 06/04/17 17:24 Dose: 100 mg Famotidine (Pepcid) 20 mg PO DAILY [facility] Last Admin: 06/04/17 09:05 Dose: 20 mg Heparin Sodium (Porcine) (Heparin) 5,000 units SC Q8 [facility] Last Admin: 06/04/17 14:12 Dose: 5,000 units Sodium Chloride (Sodium Chloride 0.9%) 1,000 mls @ 100 mls/hr IV .Q10H [facility] Last Admin: 06/04/17 12:14 Dose: 100 mls/hr Imipenem/Cilastatin Sodium 500 (mg/ Sodium Chloride) 100 mls @ 100 mls/hr IVPB Q6H [facility] Last Admin: 06/04/17 19:32 Dose: 100 mls/hr Insulin Human Regular (Novolin R) 0 unit SC ACHS [facility] PRN Reason: Protocol Last Admin: 06/04/17 17:28 Dose: 1 unit Losartan Potassium (Cozaar) 50 mg PO DAILY [facility] Last Admin: 06/04/17 09:04 Dose: 50 mg Ondansetron HCl (Zofran Inj) 4 mg IVP Q6H PRN PRN Reason: Nausea/Vomiting Last Admin: 06/04/17 05:55 Dose: 4 mg Saccharomyces Boulardii (Florastor) 250 mg PO BID [facility] Last Admin: 06/04/17 17:27 Dose: 250 mg - Labs Labs: 06/04/17 07:05 06/04/17 07:05 Attending/Attestation - Attestation I have personally seen and examined this patient.: Yes I have fully participated in the care of the patient.: Yes I have reviewed all pertinent clinical information, including history, physical exam and plan: Yes Notes (Text): 06/04/17 20:28 Patient was seen and examined at 2:30 PM 06/04/17 Exam, Assessment and Plan were thoroughly gone over with the resident. Please also note for ROS: Stated having hard time moving bowels, however moved bowels today at bedside commode Bilateral lower back pain nonradiating NO burning/pain with urination Please also note on Exam: NO CVA tenderness bilaterally at the time of my exam. Please also note on Assessment and Plan: Pyelonephritis: Urine Culture 06/01/17 showed ESBL E. coli. Ceftriaxone was discontinued and patient started on Primaxin. ID Dr. Jain consult placed for further recommendations. Low attenuations Cystic Mass lower Uterine Segment and Uterine Cervix: she will need further evaluation with Pelvic/Transvaginal U/S as outpatient Constipation: patient is moving her bowels, she is also on Dulcolax daily along with the Colace Armando Rosado D.O.
[2017-06-04 07:47] LABS: CHLORIDE 104 mmol/L (98-107)
[2017-06-04 07:48] LABS: POTASSIUM 4.3 mmol/L (3.6-5.2); SODIUM 137 mmol/L (132-148)
[2017-06-04 07:50] LABS: AST/SGOT 32 U/L (14-36); BILIRUBIN,TOTAL 1.1 mg/dL (0.2-1.3); CARBON DIOXIDE 24 mmol/L (22-30); GFR AFRICAN-AMERICAN > 60
[2017-06-04 07:51] LABS: ALB/GLOB RATIO 0.9 (1.0-2.1); ALKALINE PHOSPHATASE 123 U/L (38-126); ALT/SGPT 27 U/L (9-52); BLOOD UREA NITROGEN 13 mg/dL (7-17); CALCIUM 8.1 mg/dl (8.6-10.4); GLUCOSE,RANDOM 195 mg/dL (65-105); TOTAL PROTEIN 7.2 g/dL (6.3-8.3)
[2017-06-04] MEDS: (Novolin R) Insulin Human Regular 100 units/ml vial SC SCH ×4 (08:25→21:51)
[2017-06-04] MEDS: Saccharomyces Boulardi 250 mg Cap PO SCH ×2 (09:05→17:27)
[2017-06-04] MEDS: Bisacodyl 5mg EC Tab PO SCH (09:05)
[2017-06-04 12:57] LABS: RBC URINE 11 /hpf (0-3); URINE BACTERIA OCC (<OCC); URINE BILIRUBIN NEGATIVE (NEGATIVE); URINE BLOOD 1+ (NEGATIVE); URINE COLOR Yellow (YELLOW); URINE GLUCOSE (UA) 3+ mg/dL (Normal); URINE KETONE NEGATIVE (NEGATIVE); URINE LEUKOCYTE ESTERASE TRACE Leu/uL (Negative); URINE PROTEIN NEGATIVE (NEGATIVE); WBC URINE 9 /hpf (0-5)
--- NOTE | 2017-06-04 22:32 | CARD ---
APPROVED REPORT EKG Measurement Heart [id number] <Conclusion> Sinus rhythm with 1st degree AV block Otherwise normal ECG
--- NOTE | 2017-06-04 22:51 | CP.PCM.CON ---
History of Present Illness - History of Present Illness History of Present Illness: dictated Past Patient History - Infectious Disease Hx of Infectious Diseases: None - Past Medical History & Family History Past Medical History?: Yes - Past Social History Smoking Status: Never Smoked - CARDIAC Hx Hypertension: Yes - PULMONARY Hx Respiratory Disorders: No - NEUROLOGICAL Hx Neurological Disorder: No - HEENT Hx HEENT Problems: No - RENAL Hx Chronic Kidney Disease: No - ENDOCRINE/METABOLIC Hx Diabetes Mellitus Type 2: Yes - HEMATOLOGICAL/ONCOLOGICAL Hx Blood Disorders: No Hx Anemia: No Hx Blood Transfusions: No - INTEGUMENTARY Hx Dermatological Problems: No - MUSCULOSKELETAL/RHEUMATOLOGICAL Hx Arthritis: Yes (KNEE R> L) - GASTROINTESTINAL Hx Gall Bladder Disease: Yes (ERCP STENT PLACEMENTPOST CHOLECYSTECTOMY) - GENITOURINARY/GYNECOLOGICAL Hx Genitourinary Disorders: Yes (FIBROID UTERUS HX) - PSYCHIATRIC Hx Substance Use: No - SURGICAL HISTORY Hx Surgeries: Yes Hx Cholecystectomy: Yes Hx Hysterectomy: Yes - ANESTHESIA Hx Anesthesia: Yes Hx Anesthesia Reactions: No Hx Malignant Hyperthermia: No Meds Allergies/Adverse Reactions: Allergies Allergy/AdvReac Type Severity Reaction Status Date / Time No Known Allergies Allergy Verified 11/02/16 09:42 - Medications Medications: Current Medications Acetaminophen (Tylenol 325mg Tab) 650 mg PO Q6 PRN PRN Reason: Pain, moderate (4-7) Last Admin: 06/04/17 06:15 Dose: 650 mg Aspirin (Aspirin) 81 mg PO DAILY [facility] Last Admin: 06/04/17 09:03 Dose: 81 mg Bisacodyl (Dulcolax) 5 mg PO DAILY [facility] Last Admin: 06/04/17 09:05 Dose: 5 mg Docusate Sodium (Colace) 100 mg PO BID [facility] Last Admin: 06/04/17 17:24 Dose: 100 mg Famotidine (Pepcid) 20 mg PO DAILY [facility] Last Admin: 06/04/17 09:05 Dose: 20 mg Heparin Sodium (Porcine) (Heparin) 5,000 units SC Q8 [facility] Last Admin: 06/04/17 14:12 Dose: 5,000 units Sodium Chloride (Sodium Chloride 0.9%) 1,000 mls @ 100 mls/hr IV .Q10H [facility] Last Admin: 06/04/17 21:55 Dose: 100 mls/hr Imipenem/Cilastatin Sodium 500 (mg/ Sodium Chloride) 100 mls @ 100 mls/hr IVPB Q6H [facility] Last Admin: 06/04/17 19:32 Dose: 100 mls/hr Insulin Human Regular (Novolin R) 0 unit SC ACHS [facility] PRN Reason: Protocol Last Admin: 06/04/17 21:51 Dose: Not Given Losartan Potassium (Cozaar) 50 mg PO DAILY [facility] Last Admin: 06/04/17 09:04 Dose: 50 mg Ondansetron HCl (Zofran Inj) 4 mg IVP Q6H PRN PRN Reason: Nausea/Vomiting Last Admin: 06/04/17 05:55 Dose: 4 mg Saccharomyces Boulardii (Florastor) 250 mg PO BID [facility] Last Admin: 06/04/17 17:27 Dose: 250 mg Results - Vital Signs Recent Vital Signs: Last Vital Signs Temp 97.8 F 06/04/17 16:08 Pulse 80 06/04/17 16:08 Resp 20 06/04/17 16:08 BP 125/85 06/04/17 16:08 Pulse Ox 99 06/04/17 16:08 - Labs Result Diagrams: 06/04/17 07:05 06/04/17 07:05 Labs: Laboratory Results - last 24 hr 06/04/17 06/04/17 06/04/17 07:05 07:05 08:00 WBC 11.0 H RBC 3.77 L Hgb 10.8 L Hct 31.9 L MCV 84.5 MCH 28.6 MCHC 33.9 RDW 13.5 Plt Count 305 MPV 7.8 Neut % (Auto) 68.5 Lymph % (Auto) 20.2 [place] % (Auto) 9.3 Eos % (Auto) 1.2 Baso % (Auto) 0.8 Neut # 7.5 H Lymph # 2.2 [place] # 1.0 H Eos # 0.1 Baso # 0.1 Sodium 137 Potassium 4.3 Chloride 104 Carbon Dioxide 24 Anion Gap 14 BUN 13 Creatinine 0.7 Est GFR ( Amer) > 60 Est GFR (Non-Af Amer) > 60 POC Glucose (mg/dL) 217 H Random Glucose 195 H Calcium 8.1 L Total Bilirubin 1.1 AST 32 ALT 27 Alkaline Phosphatase 123 Total Protein 7.2 Albumin 3.4 L Globulin 3.9 Albumin/Globulin Ratio 0.9 L Urine Color Urine Clarity Urine pH Ur Specific [place] Urine Protein Urine Glucose (UA) Urine Ketones Urine Blood Urine Nitrate Urine Bilirubin Urine Urobilinogen Ur Leukocyte Esterase Urine WBC (Auto) Urine RBC (Auto) Ur Squamous Epith Cells Urine Bacteria 06/04/17 06/04/17 06/04/17 11:34 12:37 16:48 WBC RBC Hgb Hct MCV MCH MCHC RDW Plt Count MPV Neut % (Auto) Lymph % (Auto) [place] % (Auto) Eos % (Auto) Baso % (Auto) Neut # Lymph # [place] # Eos # Baso # Sodium Potassium Chloride Carbon Dioxide Anion Gap BUN Creatinine Est GFR ( Amer) Est GFR (Non-Af Amer) POC Glucose (mg/dL) 277 H 270 H Random Glucose Calcium Total Bilirubin AST ALT Alkaline Phosphatase Total Protein Albumin Globulin Albumin/Globulin Ratio Urine Color Yellow Urine Clarity Clear Urine pH 5.0 Ur Specific [place] 1.010 Urine Protein Negative Urine Glucose (UA) 3+ H Urine Ketones Negative Urine Blood 1+ H Urine Nitrate Negative Urine Bilirubin Negative Urine Urobilinogen 4.0 H Ur Leukocyte Esterase Trace Urine WBC (Auto) 9 H Urine RBC (Auto) 11 H Ur Squamous Epith Cells 5 Urine Bacteria Occ H 06/04/17 21:31 WBC RBC Hgb Hct MCV MCH MCHC RDW Plt Count MPV Neut % (Auto) Lymph % (Auto) [place] % (Auto) Eos % (Auto) Baso % (Auto) Neut # Lymph # [place] # Eos # Baso # Sodium Potassium Chloride Carbon Dioxide Anion Gap BUN Creatinine Est GFR ( Amer) Est GFR (Non-Af Amer) POC Glucose (mg/dL) 224 H Random Glucose Calcium Total Bilirubin AST ALT Alkaline Phosphatase Total Protein Albumin Globulin Albumin/Globulin Ratio Urine Color Urine Clarity Urine pH Ur Specific [place] Urine Protein Urine Glucose (UA) Urine Ketones Urine Blood Urine Nitrate Urine Bilirubin Urine Urobilinogen Ur Leukocyte Esterase Urine WBC (Auto) Urine RBC (Auto) Ur Squamous Epith Cells Urine Bacteria
--- NOTE | 2017-06-05 06:58 | CON ---
HISTORY OF PRESENT ILLNESS: This is a 71-year-old female. She has a history of hypertension and diabetes. She came in with abdominal pain. I am asked to evaluate her because she has UTI. She also had a CAT scan which showed right hydronephrosis, and she is diabetic. She right now is more concentrating on that she is constipated. She denies any fever or chills at this time. PAST MEDICAL HISTORY: Significant for hypertension and diabetes. SURGICAL HISTORY: History of hysterectomy and lap triston. FAMILY HISTORY: She denies any. MEDICATIONS: She has been at home on hypertensive medicine, valsartan, hydrochlorothiazide, Dulcolax, famotidine, Novolin, insulin. She states she takes the insulin twice a day. ALLERGIES: SHE IS NOT ALLERGIC TO ANY MEDICINE. SOCIAL HISTORY: She speaks Yi. She denies any smoking, drinking, or any drug abuse. REVIEW OF SYSTEMS: She did come with chills and excessive sweating. Denied headache. Denies any ears, nose, throat problems. Right now, no chest pain, no abdominal pain, no nausea. Did have cough when she came in and she did have urinary symptoms of dysuria. MEDICATIONS: She is on aspirin, Dulcolax, Colace, Pepcid, heparin sodium subcu, and she was started on imipenem 500 q. 6 hours, and I was called in. Novolin R was not given. She is on losartan, and she is on Zofran for vomiting, so she must be vomiting before. PHYSICAL EXAMINATION GENERAL: She is obese. VITAL SIGNS: Temperature is 97.8 today, pulse is 80, blood pressure 125/85, respirations are 20. HEENT: Head is atraumatic, normocephalic. Pupils are reacting to light. NECK: Supple. HEART: S1, S2, regular. LUNGS: Clear. No crackles or rales present. ABDOMEN: Soft, nontender. No guarding, no rigidity present. She has no tenderness on the left side. Right side has mild tenderness. EXTREMITIES: Have no edema, clubbing, or cyanosis. LABORATORY DATA: Noted. Labs show white count is 11, hemoglobin is 10.8, hematocrit is 31.9, and platelets are 305. Urine had E. coli, ESBL positive which is meropenem sensitive. She had a CAT scan done, CAT scan showed moderate-sized focal area, decreased enhance of right renal cortex consistent with history of pyelonephritis, no evidence of abscess formation. Mild bilateral hydronephrosis and hydroureter since the previous exam. She also has a cystic mass in the lower uterine segment and uterine cervix, and they suggested to do an ultrasound of the uterus, mild to moderate urinary bladder wall thickening suspicious of cystitis. So, she has cystitis, may have a cystic mass in the uterine segment, and has mild bilateral hydronephrosis, and right renal cortex enlargement, pyelonephritis, diabetic. We will follow. Tushar Jain MD
--- NOTE | 2017-06-05 07:12 | CP.PCM.PN ---
<Darius Schumacher - Last Filed: 06/05/17 19:28> Subjective - Date & Time of Evaluation Date of Evaluation: 06/05/17 Time of Evaluation: 07:05 - Subjective Subjective: PGY1 Note for Dr. Rosado HPI: Patient seen adn examined at bedside. Used sand carrier Vioozer C. [id number]. Patient peeing more frequently but denies any fever or chills. Patients daughter is at the bedside. She states mother is not eating well. I told her she can bring in food from home. Patient seemed concerned she had a male doctor. I asked if she would like a female doctor but she said it was ok. Patient had one episode of emesis later in the day in which zofran was given. No other complaints at this time. Objective - Vital Signs/Intake and Output Vital Signs (last 24 hours): Temp Pulse Resp BP Pulse Ox 99.5 F 87 20 148/68 97 06/04/17 23:50 06/04/17 23:50 06/04/17 23:50 06/04/17 23:50 06/04/17 23:50 - Medications Medications: Current Medications Acetaminophen (Tylenol 325mg Tab) 650 mg PO Q6 PRN PRN Reason: Pain, moderate (4-7) Last Admin: 06/04/17 06:15 Dose: 650 mg Aspirin (Aspirin) 81 mg PO DAILY [facility] Last Admin: 06/04/17 09:03 Dose: 81 mg Bisacodyl (Dulcolax) 5 mg PO DAILY [facility] Last Admin: 06/04/17 09:05 Dose: 5 mg Docusate Sodium (Colace) 100 mg PO BID [facility] Last Admin: 06/04/17 17:24 Dose: 100 mg Famotidine (Pepcid) 20 mg PO DAILY [facility] Last Admin: 06/04/17 09:05 Dose: 20 mg Heparin Sodium (Porcine) (Heparin) 5,000 units SC Q8 [facility] Last Admin: 06/05/17 05:35 Dose: 5,000 units Sodium Chloride (Sodium Chloride 0.9%) 1,000 mls @ 100 mls/hr IV .Q10H [facility] Last Admin: 06/04/17 21:55 Dose: 100 mls/hr Imipenem/Cilastatin Sodium 500 (mg/ Sodium Chloride) 100 mls @ 100 mls/hr IVPB Q6H [facility] Last Admin: 06/05/17 02:34 Dose: 100 mls/hr Insulin Human Regular (Novolin R) 0 unit SC ACHS [facility] PRN Reason: Protocol Last Admin: 06/04/17 21:51 Dose: Not Given Losartan Potassium (Cozaar) 50 mg PO DAILY [facility] Last Admin: 06/04/17 09:04 Dose: 50 mg Ondansetron HCl (Zofran Inj) 4 mg IVP Q6H PRN PRN Reason: Nausea/Vomiting Last Admin: 06/04/17 05:55 Dose: 4 mg Saccharomyces Boulardii (Florastor) 250 mg PO BID [facility] Last Admin: 06/04/17 17:27 Dose: 250 mg - Labs Labs: 06/04/17 07:05 06/04/17 07:05 - Constitutional Appears: Well, Non-toxic, No Acute Distress - Head Exam Head Exam: ATRAUMATIC, NORMAL INSPECTION - Eye Exam Eye Exam: EOMI, Normal appearance - ENT Exam ENT Exam: Mucous Membranes Moist - Respiratory Exam Respiratory Exam: Clear to Ausculation Bilateral, NORMAL BREATHING PATTERN - Cardiovascular Exam Cardiovascular Exam: REGULAR RHYTHM - GI/Abdominal Exam GI & Abdominal Exam: Soft, Tenderness (mild suprapubic tenderness), Normal Bowel Sounds. absent: Distended - Extremities Exam Extremities Exam: absent: Joint Swelling, Tenderness - Back Exam Back Exam: absent: CVA tenderness (L), CVA tenderness (R) - Neurological Exam Neurological Exam: Alert, Awake, Oriented x3 - Psychiatric Exam Psychiatric exam: Normal Affect, Normal Mood - Skin Skin Exam: Dry, Intact, Normal Color, Warm Assessment and Plan - Assessment and Plan (Free Text) Assessment: Pyelonphritis * ID (Susy) * Blood cultures * negative x72h * Urine culture * ESBL * CT Abdomen/Pelvis * Evidence of Pyelo with no abscess * Evidence of cystitis * Cystic mass lesion in lower uterine segment - will need follow up as outpatient * Primaxin 500 IV Q8 * NS @75 Hypertension * Aspirin 81mg PO daily * Cozaar 50mg PO daily Diabetes * Accuchecks QAC and HS * A1C 9.1 * Diabetic clear liquids * Lantus 13 units SC HS * Insulin regular 4 units TID with meals Constipation * Colace 100mg PO BID Prophylaxis * Heparin 5000 units SC 8hours for DVT ppx * Pepcid 20mg PO daily for GI ppx * PT/OT eval * Florastor 250mg PO * NS 75 <Armando Rosado - Last Filed: 06/05/17 21:00> Objective - Vital Signs/Intake and Output Vital Signs (last 24 hours): Temp Pulse Resp BP Pulse Ox 98.1 F 81 20 136/79 96 06/05/17 15:27 06/05/17 15:27 06/05/17 15:27 06/05/17 15:27 06/05/17 15:27 Intake and Output: 06/05/17 06/06/17 18:59 06:59 Intake Total 1300 Balance 1300 - Medications Medications: Current Medications Acetaminophen (Tylenol 325mg Tab) 650 mg PO Q6 PRN PRN Reason: Pain, moderate (4-7) Last Admin: 06/04/17 06:15 Dose: 650 mg Aspirin (Ecotrin) 81 mg PO DAILY [facility] Bisacodyl (Dulcolax) 5 mg PO DAILY [facility] Last Admin: 06/05/17 10:16 Dose: 5 mg Docusate Sodium (Colace) 100 mg PO BID [facility] Last Admin: 06/05/17 17:12 Dose: 100 mg Famotidine (Pepcid) 20 mg PO DAILY [facility] Last Admin: 06/05/17 10:15 Dose: 20 mg Heparin Sodium (Porcine) (Heparin) 5,000 units SC Q8 [facility] Last Admin: 06/05/17 13:09 Dose: 5,000 units Imipenem/Cilastatin Sodium 500 (mg/ Sodium Chloride) 100 mls @ 100 mls/hr IVPB Q6H [facility] Last Admin: 06/05/17 20:15 Dose: 100 mls/hr Sodium Chloride (Sodium Chloride 0.9%) 1,000 mls @ 75 mls/hr IV .[id number] [facility] Last Admin: 06/05/17 20:17 Dose: 75 mls/hr Insulin Glargine (Lantus) 13 unit SC HS [facility] Insulin Human Regular (Novolin R) 4 unit SC TIDAC [facility] Last Admin: 06/05/17 18:39 Dose: Not Given Losartan Potassium (Cozaar) 50 mg PO DAILY [facility] Last Admin: 06/05/17 10:15 Dose: 50 mg Ondansetron HCl (Zofran Inj) 4 mg IVP Q6H PRN PRN Reason: Nausea/Vomiting Last Admin: 06/05/17 16:52 Dose: 4 mg Saccharomyces Boulardii (Florastor) 250 mg PO BID [facility] Last Admin: 06/05/17 17:12 Dose: 250 mg - Labs Labs: 06/05/17 07:12 06/05/17 07:12 Attending/Attestation - Attestation I have personally seen and examined this patient.: Yes I have fully participated in the care of the patient.: Yes I have reviewed all pertinent clinical information, including history, physical exam and plan: Yes Notes (Text): 06/05/17 20:59 Patient was seen and examined at 6:00 PM 06/05/17 Exam, Assessment and Plan were thoroughly gone over with the resident. Please also note on Assessment and Plan: Low attenuations Cystic Mass lower Uterine Segment and Uterine Cervix: she will need further evaluation with Pelvic/Transvaginal U/S as outpatient Armando Rosado D.O.
[2017-06-05 07:27] LABS: BASO # 0.1 K/uL (0.0-0.2); BASO % 0.5 % (0.0-2.0); EOS # 0.2 K/uL (0.0-0.7); EOS % 1.5 % (0.0-4.0); HEMATOCRIT 32.2 % (34.0-47.0); LYMPH # 2.5 K/uL (1.0-4.3); LYMPH % 23.4 % (20.0-40.0); MEAN CELL VOLUME 84.7 fL (81.0-99.0); MEAN CORPUSCULAR HEMOGLOBIN 28.9 pg (27.0-31.0); MEAN CORPUSCULAR HGB CONC 34.1 g/dL (33.0-37.0); MEAN PLATELET VOLUME 7.8 fL (7.2-11.7); MONO # 1.2 K/uL (0.0-0.8); MONO % 11.1 % (0.0-10.0); RED CELL DISTRIBUTION WIDTH 13.7 % (11.5-14.5); WHITE BLOOD COUNT 10.8 K/uL (4.8-10.8)
[2017-06-05 07:46] LABS: CHLORIDE 106 mmol/L (98-107); SODIUM 141 mmol/L (132-148)
[2017-06-05 07:48] LABS: AST/SGOT 29 U/L (14-36); BILIRUBIN,TOTAL 0.9 mg/dL (0.2-1.3); CARBON DIOXIDE 24 mmol/L (22-30); GFR AFRICAN-AMERICAN > 60
[2017-06-05 07:49] LABS: ALB/GLOB RATIO 0.8 (1.0-2.1); ALKALINE PHOSPHATASE 138 U/L (38-126); ALT/SGPT 33 U/L (9-52); BLOOD UREA NITROGEN 10 mg/dL (7-17); CALCIUM 8.3 mg/dl (8.6-10.4); GLUCOSE,RANDOM 190 mg/dL (65-105); TOTAL PROTEIN 7.1 g/dL (6.3-8.3)
[2017-06-05] MEDS: (Novolin R) Insulin Human Regular 100 units/ml vial SC SCH ×4 (08:45→18:39)
[2017-06-05] MEDS: Saccharomyces Boulardi 250 mg Cap PO SCH ×2 (10:15→17:12)
[2017-06-05] MEDS: Bisacodyl 5mg EC Tab PO SCH (10:16)
[2017-06-05] MEDS: Sodium Chloride 0.9% 1,000 ML IV SCH ×2 (12:07→20:17)
[2017-06-05] MEDS: (Lantus) Insulin Glargine, Recombinant SC SCH (22:22)
[2017-06-06 08:32] LABS: BASO # 0.1 K/uL (0.0-0.2); BASO % 0.9 % (0.0-2.0); EOS # 0.3 K/uL (0.0-0.7); EOS % 2.3 % (0.0-4.0); HEMATOCRIT 32.6 % (34.0-47.0); LYMPH # 2.4 K/uL (1.0-4.3); LYMPH % 21.6 % (20.0-40.0); MEAN CELL VOLUME 84.3 fL (81.0-99.0); MEAN CORPUSCULAR HEMOGLOBIN 28.4 pg (27.0-31.0); MEAN CORPUSCULAR HGB CONC 33.6 g/dL (33.0-37.0); MEAN PLATELET VOLUME 7.9 fL (7.2-11.7); MONO # 1.1 K/uL (0.0-0.8); MONO % 9.6 % (0.0-10.0); NRBC % 0.1 % (0.0-2.0); RED CELL DISTRIBUTION WIDTH 13.8 % (11.5-14.5); WHITE BLOOD COUNT 11.2 K/uL (4.8-10.8)
[2017-06-06] MEDS: (Novolin R) Insulin Human Regular 100 units/ml vial SC SCH ×3 (08:42→18:20)
[2017-06-06 08:46] LABS: CHLORIDE 101 mmol/L (98-107)
[2017-06-06 08:47] LABS: POTASSIUM 4.2 mmol/L (3.6-5.2); SODIUM 135 mmol/L (132-148)
[2017-06-06 08:49] LABS: ALB/GLOB RATIO 0.9 (1.0-2.1); ALKALINE PHOSPHATASE 157 U/L (38-126); AST/SGOT 34 U/L (14-36); BILIRUBIN,TOTAL 0.9 mg/dL (0.2-1.3); BLOOD UREA NITROGEN 8 mg/dL (7-17); CARBON DIOXIDE 24 mmol/L (22-30); GFR AFRICAN-AMERICAN > 60; GLUCOSE,RANDOM 175 mg/dL (65-105); TOTAL PROTEIN 7.1 g/dL (6.3-8.3)
[2017-06-06 08:50] LABS: ALT/SGPT 39 U/L (9-52); CALCIUM 8.4 mg/dl (8.6-10.4)
[2017-06-06] MEDS: Sodium Chloride 0.9% 1,000 ML IV SCH ×2 (09:15→22:39)
--- NOTE | 2017-06-06 09:30 | CP.PCM.PN ---
<Darius Schumacher - Last Filed: 06/06/17 18:39> Subjective - Date & Time of Evaluation Date of Evaluation: 06/06/17 Time of Evaluation: 09:27 - Subjective Subjective: PGY1 Note for Dr. Rosado HPI: Patient seen and examined at bedside. Translation by CP. Patient denies any nausea or vomiting. Complaining of back pain. Needs assistance to walk to the camode. Daughter was at bedside. said her mother has been eating some rice and drinking tea as well as 5 pints of water. Daughter asked if her mom could get a walker as that is how she ambulates at home. Patient in discomfort due to multiple IV sticks to get blood this morning. No other complaints at this time. Objective - Vital Signs/Intake and Output Vital Signs (last 24 hours): Temp Pulse Resp BP Pulse Ox 98.5 F 80 20 148/86 96 06/06/17 08:02 06/06/17 08:02 06/06/17 08:02 06/06/17 08:02 06/06/17 08:02 Intake and Output: 06/06/17 06/06/17 06:59 18:59 Intake Total 1600 Balance 1600 - Medications Medications: Current Medications Acetaminophen (Tylenol 325mg Tab) 650 mg PO Q6 PRN PRN Reason: Pain, moderate (4-7) Last Admin: 06/04/17 06:15 Dose: 650 mg Aspirin (Ecotrin) 81 mg PO DAILY [facility] Bisacodyl (Dulcolax) 5 mg PO DAILY [facility] Last Admin: 06/05/17 10:16 Dose: 5 mg Docusate Sodium (Colace) 100 mg PO BID [facility] Last Admin: 06/05/17 17:12 Dose: 100 mg Famotidine (Pepcid) 20 mg PO DAILY [facility] Last Admin: 06/05/17 10:15 Dose: 20 mg Heparin Sodium (Porcine) (Heparin) 5,000 units SC Q8 [facility] Last Admin: 06/06/17 05:50 Dose: 5,000 units Imipenem/Cilastatin Sodium 500 (mg/ Sodium Chloride) 100 mls @ 100 mls/hr IVPB Q6H [facility] Last Admin: 06/06/17 08:40 Dose: 100 mls/hr Sodium Chloride (Sodium Chloride 0.9%) 1,000 mls @ 75 mls/hr IV .[id number] [facility] Last Admin: 06/05/17 20:17 Dose: 75 mls/hr Insulin Glargine (Lantus) 13 unit SC HS [facility] Last Admin: 06/05/17 22:22 Dose: 13 units Insulin Human Regular (Novolin R) 4 unit SC TIDAC [facility] Last Admin: 06/06/17 08:42 Dose: 4 unit Losartan Potassium (Cozaar) 50 mg PO DAILY [facility] Last Admin: 06/05/17 10:15 Dose: 50 mg Ondansetron HCl (Zofran Inj) 4 mg IVP Q6H PRN PRN Reason: Nausea/Vomiting Last Admin: 06/05/17 16:52 Dose: 4 mg Saccharomyces Boulardii (Florastor) 250 mg PO BID [facility] Last Admin: 06/05/17 17:12 Dose: 250 mg - Labs Labs: 06/06/17 08:26 06/06/17 08:26 - Constitutional Appears: Well, Non-toxic, No Acute Distress - Head Exam Head Exam: ATRAUMATIC, NORMAL INSPECTION, NORMOCEPHALIC - Eye Exam Eye Exam: EOMI Pupil Exam: NORMAL ACCOMODATION - ENT Exam ENT Exam: Mucous Membranes Moist - Neck Exam Neck Exam: Full ROM - Respiratory Exam Respiratory Exam: Clear to Ausculation Bilateral, NORMAL BREATHING PATTERN - Cardiovascular Exam Cardiovascular Exam: REGULAR RHYTHM - GI/Abdominal Exam GI & Abdominal Exam: Soft, Normal Bowel Sounds. absent: Distended, Tenderness - Back Exam Back Exam: absent: CVA tenderness (L), CVA tenderness (R) - Psychiatric Exam Psychiatric exam: Normal Affect, Normal Mood - Skin Skin Exam: Dry, Intact, Normal Color, Warm Assessment and Plan - Assessment and Plan (Free Text) Assessment: Pyelonphritis * ID (Susy) * Blood cultures * negative x4d * Urine culture * ESBL * CT Abdomen/Pelvis * Evidence of Pyelo with no abscess * Evidence of cystitis * Cystic mass lesion in lower uterine segment - will need follow up as outpatient * Primaxin 500 IV Q8 * NS @75 Hypertension * Aspirin 81mg PO daily * Cozaar 50mg PO daily Diabetes * Accuchecks QAC and HS * A1C 9.1 * Diabetic clear liquids * Lantus 13 units SC HS * Insulin regular 4 units TID with meals Constipation * Colace 100mg PO BID Prophylaxis * Heparin 5000 units SC 8hours for DVT ppx * Pepcid 20mg PO daily for GI ppx * PT/OT eval * Florastor 250mg PO * NS 75 * [email or web address] <Armando Rosado - Last Filed: 06/06/17 19:47> Objective - Vital Signs/Intake and Output Vital Signs (last 24 hours): Temp Pulse Resp BP Pulse Ox 98.2 F 82 20 145/82 95 06/06/17 16:00 06/06/17 16:00 06/06/17 16:00 06/06/17 16:00 06/06/17 16:00 Intake and Output: 06/06/17 06/07/17 18:59 06:59 Intake Total 920 Balance 920 - Medications Medications: Current Medications Acetaminophen (Tylenol 325mg Tab) 650 mg PO Q6 PRN PRN Reason: Pain, moderate (4-7) Last Admin: 06/04/17 06:15 Dose: 650 mg Aspirin (Ecotrin) 81 mg PO DAILY [facility] Last Admin: 06/06/17 10:38 Dose: 81 mg Bisacodyl (Dulcolax) 5 mg PO DAILY [facility] Last Admin: 06/06/17 10:40 Dose: 5 mg Docusate Sodium (Colace) 100 mg PO BID [facility] Last Admin: 06/06/17 18:20 Dose: 100 mg Famotidine (Pepcid) 20 mg PO DAILY [facility] Last Admin: 06/06/17 10:40 Dose: 20 mg Heparin Sodium (Porcine) (Heparin) 5,000 units SC Q8 [facility] Last Admin: 06/06/17 13:04 Dose: 5,000 units Imipenem/Cilastatin Sodium 500 (mg/ Sodium Chloride) 100 mls @ 100 mls/hr IVPB Q6H [facility] Last Admin: 06/06/17 14:19 Dose: 100 mls/hr Sodium Chloride (Sodium Chloride 0.9%) 1,000 mls @ 75 mls/hr IV .[id number] [facility] Last Admin: 06/06/17 09:15 Dose: Not Given Vancomycin/Sodium Chloride (Vancocin) 1 gm in 200 mls @ 166.6 mls/hr IVPB Q12H [facility] Stop: 06/11/17 17:01 Last Admin: 06/06/17 18:20 Dose: 166.6 mls/hr Insulin Glargine (Lantus) 13 unit SC HS [facility] Last Admin: 06/05/17 22:22 Dose: 13 units Insulin Human Regular (Novolin R) 4 unit SC TIDAC [facility] Last Admin: 06/06/17 18:20 Dose: 4 unit Losartan Potassium (Cozaar) 50 mg PO DAILY [facility] Last Admin: 06/06/17 10:40 Dose: 50 mg Ondansetron HCl (Zofran Inj) 4 mg IVP Q6H PRN PRN Reason: Nausea/Vomiting Last Admin: 06/05/17 16:52 Dose: 4 mg Saccharomyces Boulardii (Florastor) 250 mg PO BID [facility] Last Admin: 06/06/17 18:20 Dose: 250 mg - Labs Labs: 06/06/17 08:26 06/06/17 08:26 Attending/Attestation - Attestation I have personally seen and examined this patient.: Yes I have fully participated in the care of the patient.: Yes I have reviewed all pertinent clinical information, including history, physical exam and plan: Yes Notes (Text): 06/06/17 19:41 Patient was seen and examined at 3:45 PM 06/06/17 Exam, Assessment and Plan were thoroughly gone over with the resident. Please also note on Assessment and Plan: Low attenuations Cystic Mass lower Uterine Segment and Uterine Cervix: she will need further evaluation with Pelvic/Transvaginal U/S as outpatient Repeat Urine Culture on 06/04/17 showed Enterococcus faecium that is sensitive to Vancomycin therefore Vancomycin 1 gm IV Q12H was ordered starting at 6 PM and Vancomycin Trough was ordered for 06/08/17 at 5:30 AM Urine Culture on 06/01/17 showed E.coli sensitive to Impenem which the patient is on at 500 mg IV Q6H Patient uses a walker at home. PT/OT has been ordered. Patient's Daughter Valeria ([phone]) was updated via phone at patient's request. Armando Rosado D.O.
[2017-06-06] MEDS: Bisacodyl 5mg EC Tab PO SCH (10:40)
[2017-06-06] MEDS: Saccharomyces Boulardi 250 mg Cap PO SCH ×2 (10:41→18:20)
[2017-06-06] MEDS: Vancomycin 1 gm/NS 200 ml 1 GM/200 ML BAG IVPB SCH (18:20)
--- NOTE | 2017-06-06 19:12 | CP.PCM.PN ---
Subjective - Date & Time of Evaluation Date of Evaluation: 06/06/17 Time of Evaluation: 03:15 - Subjective Subjective: dictated Objective - Vital Signs/Intake and Output Vital Signs (last 24 hours): Temp Pulse Resp BP Pulse Ox 98.2 F 82 20 145/82 95 06/06/17 16:00 06/06/17 16:00 06/06/17 16:00 06/06/17 16:00 06/06/17 16:00 Intake and Output: 06/06/17 06/07/17 18:59 06:59 Intake Total 920 Balance 920 - Medications Medications: Current Medications Acetaminophen (Tylenol 325mg Tab) 650 mg PO Q6 PRN PRN Reason: Pain, moderate (4-7) Last Admin: 06/04/17 06:15 Dose: 650 mg Aspirin (Ecotrin) 81 mg PO DAILY [facility] Last Admin: 06/06/17 10:38 Dose: 81 mg Bisacodyl (Dulcolax) 5 mg PO DAILY [facility] Last Admin: 06/06/17 10:40 Dose: 5 mg Docusate Sodium (Colace) 100 mg PO BID [facility] Last Admin: 06/06/17 18:20 Dose: 100 mg Famotidine (Pepcid) 20 mg PO DAILY [facility] Last Admin: 06/06/17 10:40 Dose: 20 mg Heparin Sodium (Porcine) (Heparin) 5,000 units SC Q8 [facility] Last Admin: 06/06/17 13:04 Dose: 5,000 units Imipenem/Cilastatin Sodium 500 (mg/ Sodium Chloride) 100 mls @ 100 mls/hr IVPB Q6H [facility] Last Admin: 06/06/17 14:19 Dose: 100 mls/hr Sodium Chloride (Sodium Chloride 0.9%) 1,000 mls @ 75 mls/hr IV .[id number] [facility] Last Admin: 06/06/17 09:15 Dose: Not Given Vancomycin/Sodium Chloride (Vancocin) 1 gm in 200 mls @ 166.6 mls/hr IVPB Q12H [facility] Stop: 06/11/17 17:01 Last Admin: 06/06/17 18:20 Dose: 166.6 mls/hr Insulin Glargine (Lantus) 13 unit SC HS [facility] Last Admin: 06/05/17 22:22 Dose: 13 units Insulin Human Regular (Novolin R) 4 unit SC TIDAC [facility] Last Admin: 06/06/17 18:20 Dose: 4 unit Losartan Potassium (Cozaar) 50 mg PO DAILY [facility] Last Admin: 06/06/17 10:40 Dose: 50 mg Ondansetron HCl (Zofran Inj) 4 mg IVP Q6H PRN PRN Reason: Nausea/Vomiting Last Admin: 06/05/17 16:52 Dose: 4 mg Saccharomyces Boulardii (Florastor) 250 mg PO BID [facility] Last Admin: 06/06/17 18:20 Dose: 250 mg - Labs Labs: 06/06/17 08:26 06/06/17 08:26
[2017-06-06] MEDS: (Lantus) Insulin Glargine, Recombinant SC SCH (22:07)
[2017-06-07] MEDS: Sodium Chloride 0.9% 1,000 ML IV SCH (02:17)
[2017-06-07] MEDS: Vancomycin 1 gm/NS 200 ml 1 GM/200 ML BAG IVPB SCH ×2 (05:17→18:36)
[2017-06-07 07:28] LABS: BASO # 0.1 K/uL (0.0-0.2); BASO % 0.8 % (0.0-2.0); EOS # 0.3 K/uL (0.0-0.7); EOS % 2.6 % (0.0-4.0); HEMATOCRIT 32.1 % (34.0-47.0); LYMPH # 2.4 K/uL (1.0-4.3); LYMPH % 20.6 % (20.0-40.0); MEAN CELL VOLUME 85.4 fL (81.0-99.0); MEAN CORPUSCULAR HEMOGLOBIN 28.1 pg (27.0-31.0); MEAN CORPUSCULAR HGB CONC 32.9 g/dL (33.0-37.0); MEAN PLATELET VOLUME 8.1 fL (7.2-11.7); MONO # 0.9 K/uL (0.0-0.8); MONO % 7.8 % (0.0-10.0); NRBC % 0.1 % (0.0-2.0); RED CELL DISTRIBUTION WIDTH 13.6 % (11.5-14.5); WHITE BLOOD COUNT 11.5 K/uL (4.8-10.8)
[2017-06-07 08:07] LABS: CHLORIDE 104 mmol/L (98-107); POTASSIUM 4.3 mmol/L (3.6-5.2); SODIUM 139 mmol/L (132-148)
[2017-06-07 08:09] LABS: BILIRUBIN,TOTAL 0.7 mg/dL (0.2-1.3); GFR AFRICAN-AMERICAN > 60
[2017-06-07 08:10] LABS: ALB/GLOB RATIO 0.9 (1.0-2.1); ALKALINE PHOSPHATASE 125 U/L (38-126); ALT/SGPT 23 U/L (9-52); AST/SGOT 22 U/L (14-36); BLOOD UREA NITROGEN 7 mg/dL (7-17); CARBON DIOXIDE 24 mmol/L (22-30); GLUCOSE,RANDOM 124 mg/dL (65-105); TOTAL PROTEIN 6.9 g/dL (6.3-8.3)
[2017-06-07 08:11] LABS: CALCIUM 8.2 mg/dl (8.6-10.4)
[2017-06-07] MEDS: (Novolin R) Insulin Human Regular 100 units/ml vial SC SCH ×3 (08:39→18:36)
--- NOTE | 2017-06-07 10:13 | RAD ---
HISTORY: Productive cough COMPARISON: Portable chest 08/23/2016. TECHNIQUE: Chest PA and lateral FINDINGS: LUNGS: No acute infiltrate bilaterally. Reticular markings are mildly accentuated in the periphery at the mid to inferior lung zones symmetrically. PLEURA: No significant pleural effusion identified. No pneumothorax apparent. CARDIOVASCULAR: Stable cardiomegaly. Prominent hilar vascularity is stable, remaining greater at the right side more so than on the left. OSSEOUS STRUCTURES: No significant abnormalities. VISUALIZED UPPER ABDOMEN: Normal. OTHER FINDINGS: None. IMPRESSION: No acute cardiopulmonary disease. Stable cardiomegaly. No pulmonary venous congestion definite at this time.
--- NOTE | 2017-06-07 10:30 | PN ---
SUBJECTIVE: The patient is afebrile. She denies any complaints. No nausea. No vomiting. She still has some right CVA tenderness and otherwise feeling better. PHYSICAL EXAMINATION VITAL SIGNS: Her temperature is 98.2, pulse is 82, blood pressure 145/82, respirations 20. HEENT: Head is atraumatic, normocephalic. NECK: Supple. LUNGS: Clear. HEART: S1 and S2 is regular. ABDOMEN: Soft, mild CVA tenderness present. EXTREMITIES: No edema. She is however obese. LABORATORY DATA: White count is 11.2, hemoglobin 11, hematocrit . Chemistry shows BUN is 8, creatinine is 0.7. Urine culture has enterococcus and before that it had E. coli. So for E. coli, she was on meropenem, and at this time, she has Enterococcus sensitive. So at this time since her white count still remains high and on abdominal CT, she was found to have moderate sized decreased enhancement of the right renal cortex consistent with patient's known history of pyelonephritis. So at this time, is also sensitive to vancomycin, so we will add vancomycin to the treatment and will follow. Tushar Jain MD
--- NOTE | 2017-06-07 10:37 | CP.PCM.PN ---
<Julia Kimble - Last Filed: 06/07/17 16:10> Subjective - Date & Time of Evaluation Date of Evaluation: 06/07/17 Time of Evaluation: 10:37 - Subjective Subjective: Patient seen and examined at bedside with engraving supervisor on the phone. Patient says she developed a cough overnight that is productive of yellow sputum. Patient says she otherwise feels good and is no longer having pain with urination. Patient is tolerating her diet. She needs some assistance with ambulation. Patient denies fever, chills, chest pain, SOB, Abdominal pain, nausea, vomiting , diarrhea, constipation. Objective - Vital Signs/Intake and Output Vital Signs (last 24 hours): Temp Pulse Resp BP Pulse Ox 98.1 F 78 20 150/83 96 06/07/17 07:09 06/07/17 07:09 06/07/17 07:09 06/07/17 07:09 06/07/17 07:09 - Medications Medications: Current Medications Acetaminophen (Tylenol 325mg Tab) 650 mg PO Q6 PRN PRN Reason: Pain, moderate (4-7) Last Admin: 06/04/17 06:15 Dose: 650 mg Aspirin (Ecotrin) 81 mg PO DAILY [facility] Last Admin: 06/06/17 10:38 Dose: 81 mg Bisacodyl (Dulcolax) 5 mg PO DAILY [facility] Last Admin: 06/06/17 10:40 Dose: 5 mg Docusate Sodium (Colace) 100 mg PO BID [facility] Last Admin: 06/06/17 18:20 Dose: 100 mg Famotidine (Pepcid) 20 mg PO DAILY [facility] Last Admin: 06/06/17 10:40 Dose: 20 mg Heparin Sodium (Porcine) (Heparin) 5,000 units SC Q8 [facility] Last Admin: 06/07/17 05:18 Dose: 5,000 units Imipenem/Cilastatin Sodium 500 (mg/ Sodium Chloride) 100 mls @ 100 mls/hr IVPB Q6H [facility] Last Admin: 06/07/17 07:51 Dose: 100 mls/hr Sodium Chloride (Sodium Chloride 0.9%) 1,000 mls @ 75 mls/hr IV .[id number] [facility] Last Admin: 06/07/17 02:17 Dose: 75 mls/hr Vancomycin/Sodium Chloride (Vancocin) 1 gm in 200 mls @ 166.6 mls/hr IVPB Q12H [facility] Stop: 06/11/17 17:01 Last Admin: 06/07/17 05:17 Dose: 166.6 mls/hr Insulin Glargine (Lantus) 13 unit SC HS [facility] Last Admin: 06/06/17 22:07 Dose: 13 units Insulin Human Regular (Novolin R) 4 unit SC TIDAC [facility] Last Admin: 06/07/17 08:39 Dose: 4 unit Losartan Potassium (Cozaar) 50 mg PO DAILY [facility] Last Admin: 06/06/17 10:40 Dose: 50 mg Ondansetron HCl (Zofran Inj) 4 mg IVP Q6H PRN PRN Reason: Nausea/Vomiting Last Admin: 06/05/17 16:52 Dose: 4 mg Saccharomyces Boulardii (Florastor) 250 mg PO BID [facility] Last Admin: 06/06/17 18:20 Dose: 250 mg - Labs Labs: 06/07/17 07:19 06/07/17 07:19 - Constitutional Appears: Non-toxic, No Acute Distress - Head Exam Head Exam: NORMAL INSPECTION - Eye Exam Eye Exam: EOMI, Normal appearance - ENT Exam ENT Exam: Mucous Membranes Moist, Normal Oropharynx - Respiratory Exam Respiratory Exam: Rhonchi, NORMAL BREATHING PATTERN. absent: Accessory Muscle Use, Rales, Wheezes, Respiratory Distress - Cardiovascular Exam Cardiovascular Exam: REGULAR RHYTHM, +S1, +S2 - GI/Abdominal Exam GI & Abdominal Exam: Soft, Normal Bowel Sounds. absent: Distended, Tenderness - Extremities Exam Extremities Exam: Pedal Edema (nonpitting ). absent: Tenderness - Back Exam Back Exam: absent: CVA tenderness (L), CVA tenderness (R) - Neurological Exam Neurological Exam: Alert, Awake - Psychiatric Exam Psychiatric exam: Normal Affect, Normal Mood - Skin Skin Exam: Dry, Intact, Normal Color, Warm Assessment and Plan - Assessment and Plan (Free Text) Assessment: Pyelonphritis * ID (Susy) * Blood cultures * negative x4d * Urine culture * ESBL * Repeat UA and UC on 06/08 via straight cath * CT Abdomen/Pelvis * Evidence of Pyelo with no abscess * Evidence of cystitis * Cystic mass lesion in lower uterine segment - will need follow up as outpatient * Primaxin 500 IV Q8 * Vancomycin 1g Q12h (added 06/06) * NS @75 (discontinued) Hypertension * Aspirin 81mg PO daily * Cozaar 50mg PO daily Diabetes * Accuchecks QAC and HS * A1C 9.1 * Diabetic clear liquids * Lantus 13 units SC HS * Insulin regular 4 units TID with meals Constipation * Colace 100mg PO BID Cough * CXR: negative for disease Cystic Mass Lower uterine segment & Cervix * Will need outpatient pelvic exam and transvaginal US Prophylaxis * Heparin 5000 units SC 8hours for DVT ppx * Pepcid 20mg PO daily for GI ppx * PT/OT eval * Florastor 250mg PO * NS 75 * zofran <Armando Rosado - Last Filed: 06/07/17 19:33> Objective - Vital Signs/Intake and Output Vital Signs (last 24 hours): Temp Pulse Resp BP Pulse Ox 98.2 F 73 20 126/76 94 L 06/07/17 15:00 06/07/17 15:00 06/07/17 15:00 06/07/17 15:00 06/07/17 15:00 Intake and Output: 06/07/17 06/08/17 18:59 06:59 Intake Total 1190 Balance 1190 - Medications Medications: Current Medications Acetaminophen (Tylenol 325mg Tab) 650 mg PO Q6 PRN PRN Reason: Pain, moderate (4-7) Last Admin: 06/04/17 06:15 Dose: 650 mg Aspirin (Ecotrin) 81 mg PO DAILY [facility] Last Admin: 06/07/17 11:05 Dose: 81 mg Bisacodyl (Dulcolax) 5 mg PO DAILY [facility] Last Admin: 06/07/17 11:04 Dose: 5 mg Docusate Sodium (Colace) 100 mg PO BID [facility] Last Admin: 06/07/17 18:36 Dose: 100 mg Famotidine (Pepcid) 20 mg PO DAILY [facility] Last Admin: 06/07/17 11:05 Dose: 20 mg Heparin Sodium (Porcine) (Heparin) 5,000 units SC Q8 [facility] Last Admin: 06/07/17 13:10 Dose: 5,000 units Imipenem/Cilastatin Sodium 500 (mg/ Sodium Chloride) 100 mls @ 100 mls/hr IVPB Q6H [facility] Last Admin: 06/07/17 13:10 Dose: 100 mls/hr Vancomycin/Sodium Chloride (Vancocin) 1 gm in 200 mls @ 166.6 mls/hr IVPB Q12H [facility] Stop: 06/11/17 17:01 Last Admin: 06/07/17 18:36 Dose: 166.6 mls/hr Insulin Glargine (Lantus) 13 unit SC HS [facility] Last Admin: 06/06/17 22:07 Dose: 13 units Insulin Human Regular (Novolin R) 4 unit SC TIDAC [facility] Last Admin: 06/07/17 18:36 Dose: 4 unit Losartan Potassium (Cozaar) 50 mg PO DAILY [facility] Last Admin: 06/07/17 11:05 Dose: 50 mg Ondansetron HCl (Zofran Inj) 4 mg IVP Q6H PRN PRN Reason: Nausea/Vomiting Last Admin: 06/05/17 16:52 Dose: 4 mg Saccharomyces Boulardii (Florastor) 250 mg PO BID [facility] Last Admin: 06/07/17 18:36 Dose: 250 mg - Labs Labs: 06/07/17 07:19 06/07/17 07:19 Attending/Attestation - Attestation I have personally seen and examined this patient.: Yes I have fully participated in the care of the patient.: Yes I have reviewed all pertinent clinical information, including history, physical exam and plan: Yes Notes (Text): 06/07/17 19:32 Patient was seen and examined at 11:15 AM 06/07/17 with Daughter Valeria [phone] present and she was updated. Exam, Assessment and Plan were thoroughly gone over with the Resident. Armando Rosado D.O.
[2017-06-07] MEDS: Bisacodyl 5mg EC Tab PO SCH (11:04)
[2017-06-07] MEDS: Saccharomyces Boulardi 250 mg Cap PO SCH ×2 (11:05→18:36)
[2017-06-07] MEDS: (Lantus) Insulin Glargine, Recombinant SC SCH (21:33)
[2017-06-08 05:46] LABS: BASO # 0.1 K/uL (0.0-0.2); BASO % 0.6 % (0.0-2.0); EOS # 0.5 K/uL (0.0-0.7); HEMATOCRIT 31.7 % (34.0-47.0); LYMPH # 2.5 K/uL (1.0-4.3); LYMPH % 23.4 % (20.0-40.0); MEAN CELL VOLUME 84.8 fL (81.0-99.0); MEAN CORPUSCULAR HEMOGLOBIN 28.4 pg (27.0-31.0); MEAN CORPUSCULAR HGB CONC 33.4 g/dL (33.0-37.0); MEAN PLATELET VOLUME 7.3 fL (7.2-11.7); MONO % 9.4 % (0.0-10.0); RED CELL DISTRIBUTION WIDTH 13.5 % (11.5-14.5); WHITE BLOOD COUNT 10.8 K/uL (4.8-10.8)
[2017-06-08 05:52] LABS: CHLORIDE 104 mmol/L (98-107)
[2017-06-08 05:53] LABS: POTASSIUM 3.6 mmol/L (3.6-5.2); SODIUM 142 mmol/L (132-148)
[2017-06-08 05:55] LABS: ALB/GLOB RATIO 0.8 (1.0-2.1); ALKALINE PHOSPHATASE 115 U/L (38-126); ALT/SGPT 26 U/L (9-52); AST/SGOT 18 U/L (14-36); BILIRUBIN,TOTAL 0.8 mg/dL (0.2-1.3); BLOOD UREA NITROGEN 6 mg/dL (7-17); CARBON DIOXIDE 26 mmol/L (22-30); GFR AFRICAN-AMERICAN > 60; TOTAL PROTEIN 6.6 g/dL (6.3-8.3)
[2017-06-08 05:56] LABS: CALCIUM 8.5 mg/dl (8.6-10.4); GLUCOSE,RANDOM 98 mg/dL (65-105)
[2017-06-08] MEDS: Vancomycin 1 gm/NS 200 ml 1 GM/200 ML BAG IVPB SCH ×3 (06:00→17:22)
[2017-06-08] MEDS ORDERED: Sodium Chloride 0.9% 1,000 ML IV SCH ×2 (06:15→06:30)
[2017-06-08] MEDS: (Novolin R) Insulin Human Regular 100 units/ml vial SC SCH ×4 (07:55→17:23)
[2017-06-08] MEDS: Saccharomyces Boulardi 250 mg Cap PO SCH ×2 (09:51→17:22)
[2017-06-08] MEDS: Bisacodyl 5mg EC Tab PO SCH (09:52)
--- NOTE | 2017-06-08 11:21 | CP.PCM.PN ---
<Julia Kimble - Last Filed: 06/08/17 17:05> Subjective - Date & Time of Evaluation Date of Evaluation: 06/08/17 Time of Evaluation: 11:18 - Subjective Subjective: Patient seen and examined at bedside. Patient doing well with no new complaints at this time. Patient is tolerating her diet. Patient denies fever, chills, chest pain, SOB, Abdominal pain, nausea, vomiting, diarrhea, constipation. Objective - Vital Signs/Intake and Output Vital Signs (last 24 hours): Temp Pulse Resp BP Pulse Ox 98.3 F 68 20 144/77 97 06/08/17 07:38 06/08/17 07:38 06/08/17 07:38 06/08/17 07:38 06/08/17 07:38 Intake and Output: 06/08/17 06/08/17 06:59 18:59 Intake Total 1215 Balance 1215 - Medications Medications: Current Medications Acetaminophen (Tylenol 325mg Tab) 650 mg PO Q6 PRN PRN Reason: Pain, moderate (4-7) Last Admin: 06/04/17 06:15 Dose: 650 mg Aspirin (Ecotrin) 81 mg PO DAILY [facility] Last Admin: 06/08/17 09:54 Dose: 81 mg Bisacodyl (Dulcolax) 5 mg PO DAILY [facility] Last Admin: 06/08/17 09:52 Dose: 5 mg Docusate Sodium (Colace) 100 mg PO BID [facility] Last Admin: 06/08/17 09:51 Dose: 100 mg Famotidine (Pepcid) 20 mg PO DAILY [facility] Last Admin: 06/08/17 09:52 Dose: 20 mg Heparin Sodium (Porcine) (Heparin) 5,000 units SC Q8 [facility] Last Admin: 06/08/17 06:19 Dose: 5,000 units Imipenem/Cilastatin Sodium 500 (mg/ Sodium Chloride) 100 mls @ 100 mls/hr IVPB Q6H [facility] Last Admin: 06/08/17 08:00 Dose: 100 mls/hr Vancomycin/Sodium Chloride (Vancocin) 1 gm in 200 mls @ 166.6 mls/hr IVPB Q12H [facility] Stop: 06/11/17 17:01 Last Admin: 06/08/17 06:50 Dose: 166.6 mls/hr Sodium Chloride (Sodium Chloride 0.9%) 1,000 mls @ 75 mls/hr IV .[id number] [facility] Last Admin: 06/08/17 06:33 Dose: 75 mls/hr Insulin Glargine (Lantus) 13 unit SC HS [facility] Last Admin: 06/07/17 21:33 Dose: 13 units Insulin Human Regular (Novolin R) 4 unit SC TIDAC [facility] Last Admin: 06/08/17 07:55 Dose: 4 unit Losartan Potassium (Cozaar) 50 mg PO DAILY [facility] Last Admin: 06/08/17 09:51 Dose: 50 mg Ondansetron HCl (Zofran Inj) 4 mg IVP Q6H PRN PRN Reason: Nausea/Vomiting Last Admin: 06/05/17 16:52 Dose: 4 mg Saccharomyces Boulardii (Florastor) 250 mg PO BID [facility] Last Admin: 06/08/17 09:51 Dose: 250 mg - Labs Labs: 06/08/17 05:27 06/08/17 05:27 - Additional Findings Additional findings: - Constitutional Appears: Non-toxic, No Acute Distress - Head Exam Head Exam: NORMAL INSPECTION - Eye Exam Eye Exam: EOMI, Normal appearance - ENT Exam ENT Exam: Mucous Membranes Moist, Normal Oropharynx - Respiratory Exam Respiratory Exam: NORMAL BREATHING PATTERN. absent: Accessory Muscle Use, Rales , Wheezes, Rhonchi, Respiratory Distress - Cardiovascular Exam Cardiovascular Exam: REGULAR RHYTHM, +S1, +S2 - GI/Abdominal Exam GI & Abdominal Exam: Soft, Normal Bowel Sounds. absent: Distended, Tenderness - Extremities Exam Extremities Exam: Pedal Edema (nonpitting ). absent: Tenderness - Back Exam Back Exam: absent: CVA tenderness (L), CVA tenderness (R) - Neurological Exam Neurological Exam: Alert, Awake - Psychiatric Exam Psychiatric exam: Normal Affect, Normal Mood - Skin Skin Exam: Dry, Intact, Normal Color, Warm Assessment and Plan - Assessment and Plan (Free Text) Assessment: Pyelonphritis * ID (Susy) * Blood cultures * negative x5d * Urine culture * ESBL * Repeat UA and UC on 06/08 via straight cath * CT Abdomen/Pelvis * Evidence of Pyelo with no abscess * Evidence of cystitis * Cystic mass lesion in lower uterine segment - will need follow up as outpatient * Primaxin 500 IV Q8 * Vancomycin 1g Q12h (added 06/06) * NS @75 (discontinued) Hypertension * Aspirin 81mg PO daily * Cozaar 50mg PO daily Diabetes * Accuchecks QAC and HS * A1C 9.1 * Diabetic clear liquids * Lantus 13 units SC HS * Insulin regular 4 units TID with meals Constipation * Colace 100mg PO BID Cough * CXR: negative for disease Cystic Mass Lower uterine segment & Cervix * Will need outpatient pelvic exam and transvaginal US Prophylaxis * Heparin 5000 units SC 8hours for DVT ppx * Pepcid 20mg PO daily for GI ppx * PT/OT eval * Florastor 250mg PO * NS 75 * zofran <Armando Rosado - Last Filed: 06/08/17 19:25> Objective - Vital Signs/Intake and Output Vital Signs (last 24 hours): Temp Pulse Resp BP Pulse Ox 97.5 F L 68 20 167/83 H 95 06/08/17 17:39 06/08/17 17:39 06/08/17 17:39 06/08/17 17:39 06/08/17 17:39 Intake and Output: 06/08/17 06/09/17 18:59 06:59 Intake Total 2315 Output Total 800 Balance 1515 - Medications Medications: Current Medications Acetaminophen (Tylenol 325mg Tab) 650 mg PO Q6 PRN PRN Reason: Pain, moderate (4-7) Last Admin: 06/04/17 06:15 Dose: 650 mg Aspirin (Ecotrin) 81 mg PO DAILY [facility] Last Admin: 06/08/17 09:54 Dose: 81 mg Bisacodyl (Dulcolax) 5 mg PO DAILY [facility] Last Admin: 06/08/17 09:52 Dose: 5 mg Docusate Sodium (Colace) 100 mg PO BID [facility] Last Admin: 06/08/17 17:22 Dose: 100 mg Famotidine (Pepcid) 20 mg PO DAILY [facility] Last Admin: 06/08/17 09:52 Dose: 20 mg Heparin Sodium (Porcine) (Heparin) 5,000 units SC Q8 [facility] Last Admin: 06/08/17 14:10 Dose: 5,000 units Imipenem/Cilastatin Sodium 500 (mg/ Sodium Chloride) 100 mls @ 100 mls/hr IVPB Q6H [facility] Last Admin: 06/08/17 14:10 Dose: 100 mls/hr Vancomycin/Sodium Chloride (Vancocin) 1 gm in 200 mls @ 166.6 mls/hr IVPB Q12H [facility] Stop: 06/11/17 17:01 Last Admin: 06/08/17 17:22 Dose: 166.6 mls/hr Insulin Glargine (Lantus) 13 unit SC HS [facility] Last Admin: 06/07/17 21:33 Dose: 13 units Insulin Human Regular (Novolin R) 4 unit SC TIDAC [facility] Last Admin: 06/08/17 17:23 Dose: 4 unit Losartan Potassium (Cozaar) 50 mg PO DAILY [facility] Last Admin: 06/08/17 09:51 Dose: 50 mg Ondansetron HCl (Zofran Inj) 4 mg IVP Q6H PRN PRN Reason: Nausea/Vomiting Last Admin: 06/05/17 16:52 Dose: 4 mg Saccharomyces Boulardii (Florastor) 250 mg PO BID [facility] Last Admin: 06/08/17 17:22 Dose: 250 mg - Labs Labs: 06/08/17 05:27 06/08/17 05:27 Attending/Attestation - Attestation I have personally seen and examined this patient.: Yes I have fully participated in the care of the patient.: Yes I have reviewed all pertinent clinical information, including history, physical exam and plan: Yes Notes (Text): 06/08/17 19:23 Patient was seen and examined at 2:45 PM 06/08/17 Exam, assessment and plan were thoroughly gone over with the resident. Repeat Urine Culture Catheterized ordered 06/08/17 and if negative then will speak with ID Dr. Jain about discharge planning. Armando Rosado D.O.
[2017-06-08] MEDS: (Lantus) Insulin Glargine, Recombinant SC SCH (21:32)
[2017-06-09] MEDS: Vancomycin 1 gm/NS 200 ml 1 GM/200 ML BAG IVPB SCH ×2 (05:04→17:03)
[2017-06-09] MEDS: (Novolin R) Insulin Human Regular 100 units/ml vial SC SCH ×3 (07:56→17:03)
[2017-06-09 08:26] LABS: CHLORIDE 101 mmol/L (98-107); POTASSIUM 3.7 mmol/L (3.6-5.2); SODIUM 138 mmol/L (132-148)
[2017-06-09 08:28] LABS: ALB/GLOB RATIO 0.8 (1.0-2.1); ALKALINE PHOSPHATASE 109 U/L (38-126); AST/SGOT 17 U/L (14-36); BILIRUBIN,TOTAL 0.4 mg/dL (0.2-1.3); CARBON DIOXIDE 26 mmol/L (22-30); GFR AFRICAN-AMERICAN > 60; TOTAL PROTEIN 6.6 g/dL (6.3-8.3)
[2017-06-09 08:29] LABS: ALT/SGPT 24 U/L (9-52); BLOOD UREA NITROGEN 9 mg/dL (7-17); CALCIUM 8.4 mg/dl (8.6-10.4); GLUCOSE,RANDOM 199 mg/dL (65-105); MAGNESIUM 1.7 mg/dL (1.6-2.3); PHOSPHOROUS 3.4 mg/dL (2.5-4.5)
[2017-06-09 08:31] LABS: BASO # 0.1 K/uL (0.0-0.2); BASO % 0.7 % (0.0-2.0); EOS # 0.4 K/uL (0.0-0.7); EOS % 3.5 % (0.0-4.0); HEMATOCRIT 31.6 % (34.0-47.0); LYMPH # 2.5 K/uL (1.0-4.3); LYMPH % 22.3 % (20.0-40.0); MEAN CELL VOLUME 85.1 fL (81.0-99.0); MEAN CORPUSCULAR HGB CONC 34.1 g/dL (33.0-37.0); MEAN PLATELET VOLUME 8.1 fL (7.2-11.7); MONO # 0.7 K/uL (0.0-0.8); MONO % 6.5 % (0.0-10.0); NRBC % 0.1 % (0.0-2.0); RED CELL DISTRIBUTION WIDTH 13.8 % (11.5-14.5); WHITE BLOOD COUNT 11.1 K/uL (4.8-10.8)
[2017-06-09] MEDS: Bisacodyl 5mg EC Tab PO SCH (10:09)
[2017-06-09] MEDS: Saccharomyces Boulardi 250 mg Cap PO SCH ×2 (10:09→17:04)
[2017-06-09] MEDS: guaiFENesin 600 mg ER Tab PO PRN (10:15)
--- NOTE | 2017-06-09 11:40 | CP.PCM.PN ---
<LaminJulia - Last Filed: 06/09/17 11:36> Subjective - Date & Time of Evaluation Date of Evaluation: 06/09/17 Time of Evaluation: 11:37 - Subjective Subjective: Patient seen and examined at bedside with photoresist contact printer on the phone. Patient says she is still having a cough productive of yellow sputum that is keeping her up throughout the night. Patient says she thought she may have had a fever overnight and was having chills and sweats. She admits to associated sore throat from coughing so much as well as a headache. She says she occasionally hears a "whistling sound" when she is breathing. She denies nasal congestion. Patient is tolerating her diet and is having normal BMs and urinating without problems. Patient denies chest pain, SOB, Abdominal pain, nausea, vomiting, diarrhea, constipation. Objective - Vital Signs/Intake and Output Vital Signs (last 24 hours): Temp Pulse Resp BP Pulse Ox 97.9 F 71 20 154/89 H 98 06/09/17 08:45 06/09/17 08:45 06/09/17 08:45 06/09/17 08:45 06/09/17 08:45 - Medications Medications: Current Medications Acetaminophen (Tylenol 325mg Tab) 650 mg PO Q6 PRN PRN Reason: Pain, moderate (4-7) Last Admin: 06/09/17 07:56 Dose: 650 mg Aspirin (Ecotrin) 81 mg PO DAILY [facility] Last Admin: 06/09/17 10:09 Dose: 81 mg Bisacodyl (Dulcolax) 5 mg PO DAILY [facility] Last Admin: 06/09/17 10:09 Dose: 5 mg Docusate Sodium (Colace) 100 mg PO BID [facility] Last Admin: 06/09/17 10:09 Dose: 100 mg Famotidine (Pepcid) 20 mg PO DAILY [facility] Last Admin: 06/09/17 10:09 Dose: 20 mg Guaifenesin (Mucinex La) 600 mg PO BID PRN PRN Reason: Cough Last Admin: 06/09/17 10:15 Dose: 600 mg Heparin Sodium (Porcine) (Heparin) 5,000 units SC Q8 [facility] Last Admin: 06/09/17 05:04 Dose: 5,000 units Imipenem/Cilastatin Sodium 500 (mg/ Sodium Chloride) 100 mls @ 100 mls/hr IVPB Q6H [facility] Last Admin: 06/09/17 08:00 Dose: 100 mls/hr Vancomycin/Sodium Chloride (Vancocin) 1 gm in 200 mls @ 166.6 mls/hr IVPB Q12H [facility] Stop: 06/11/17 17:01 Last Admin: 06/09/17 05:04 Dose: 166.6 mls/hr Insulin Glargine (Lantus) 13 unit SC HS [facility] Last Admin: 06/08/17 21:32 Dose: 13 units Insulin Human Regular (Novolin R) 4 unit SC TIDAC [facility] Last Admin: 06/09/17 07:56 Dose: 4 unit Losartan Potassium (Cozaar) 50 mg PO DAILY [facility] Last Admin: 06/09/17 10:09 Dose: 50 mg Ondansetron HCl (Zofran Inj) 4 mg IVP Q6H PRN PRN Reason: Nausea/Vomiting Last Admin: 06/05/17 16:52 Dose: 4 mg Saccharomyces Boulardii (Florastor) 250 mg PO BID [facility] Last Admin: 06/09/17 10:09 Dose: 250 mg - Labs Labs: 06/09/17 08:08 06/09/17 08:08 - Additional Findings Additional findings: - Constitutional Appears: Non-toxic, No Acute Distress - Head Exam Head Exam: NORMAL INSPECTION - Eye Exam Eye Exam: EOMI, Normal appearance - ENT Exam ENT Exam: Mucous Membranes Moist, Normal Oropharynx - Respiratory Exam Respiratory Exam: Wheezes, NORMAL BREATHING PATTERN. absent: Accessory Muscle Use, Rales, Rhonchi, Respiratory Distress - Cardiovascular Exam Cardiovascular Exam: REGULAR RHYTHM, +S1, +S2 - GI/Abdominal Exam GI & Abdominal Exam: Soft, Normal Bowel Sounds. absent: Distended, Tenderness - Extremities Exam Extremities Exam: absent: Tenderness, Pedal Edema - Back Exam Back Exam: absent: CVA tenderness (L), CVA tenderness (R) - Neurological Exam Neurological Exam: Alert, Awake - Psychiatric Exam Psychiatric exam: Normal Affect, Normal Mood - Skin Skin Exam: Dry, Intact, Normal Color, Warm Assessment and Plan - Assessment and Plan (Free Text) Assessment: Pyelonphritis * ID (Susy) * Blood cultures * negative x5d * Urine culture * ESBL (06/01 E. coli; 06/04 Enterococcus faecium) * f/u repeat UA and UC on 06/08 via straight cath * CT Abdomen/Pelvis * Evidence of Pyelo with no abscess * Evidence of cystitis * Cystic mass lesion in lower uterine segment - will need follow up as outpatient * Primaxin 500 IV Q8 * Vancomycin 1g Q12h (added 06/06) * NS @75 (discontinued) Hypertension * Aspirin 81mg PO daily * Cozaar 50mg PO daily Diabetes * Accuchecks QAC and HS * A1C 9.1 * Diabetic clear liquids * Lantus 13 units SC HS * Insulin regular 4 units TID with meals Constipation * Colace 100mg PO BID Cough * CXR: negative for disease * Mucinex 600mg PRN * f/u 06/09 rapid flu Cystic Mass Lower uterine segment & Cervix * Will need outpatient pelvic exam and transvaginal US Prophylaxis * Heparin 5000 units SC 8hours for DVT ppx * Pepcid 20mg PO daily for GI ppx * PT/OT eval * Florastor 250mg PO * NS 75 * zofrgigi <Armando Rosado - Last Filed: 06/09/17 20:06> Objective - Vital Signs/Intake and Output Vital Signs (last 24 hours): Temp Pulse Resp BP Pulse Ox 97.7 F 71 20 167/96 H 97 06/09/17 16:14 06/09/17 16:14 06/09/17 16:14 06/09/17 20:00 06/09/17 16:14 Intake and Output: 06/09/17 06/10/17 18:59 06:59 Intake Total 600 Balance 600 - Medications Medications: Current Medications Acetaminophen (Tylenol 325mg Tab) 650 mg PO Q6 PRN PRN Reason: Pain, moderate (4-7) Last Admin: 06/09/17 07:56 Dose: 650 mg Aspirin (Ecotrin) 81 mg PO DAILY [facility] Last Admin: 06/09/17 10:09 Dose: 81 mg Bisacodyl (Dulcolax) 5 mg PO DAILY [facility] Last Admin: 06/09/17 10:09 Dose: 5 mg Docusate Sodium (Colace) 100 mg PO BID [facility] Last Admin: 06/09/17 17:04 Dose: 100 mg Famotidine (Pepcid) 20 mg PO DAILY [facility] Last Admin: 06/09/17 10:09 Dose: 20 mg Guaifenesin (Mucinex La) 600 mg PO BID PRN PRN Reason: Cough Last Admin: 06/09/17 10:15 Dose: 600 mg Heparin Sodium (Porcine) (Heparin) 5,000 units SC Q8 [facility] Last Admin: 06/09/17 14:04 Dose: Not Given Imipenem/Cilastatin Sodium 500 (mg/ Sodium Chloride) 100 mls @ 100 mls/hr IVPB Q6H [facility] Last Admin: 06/09/17 14:04 Dose: 100 mls/hr Vancomycin/Sodium Chloride (Vancocin) 1 gm in 200 mls @ 166.6 mls/hr IVPB Q12H [facility] Stop: 06/11/17 17:01 Last Admin: 06/09/17 17:03 Dose: 166.6 mls/hr Insulin Glargine (Lantus) 13 unit SC HS [facility] Last Admin: 06/08/17 21:32 Dose: 13 units Insulin Human Regular (Novolin R) 4 unit SC TIDAC [facility] Last Admin: 06/09/17 17:03 Dose: 4 unit Losartan Potassium (Cozaar) 50 mg PO DAILY [facility] Last Admin: 06/09/17 10:09 Dose: 50 mg Ondansetron HCl (Zofran Inj) 4 mg IVP Q6H PRN PRN Reason: Nausea/Vomiting Last Admin: 06/05/17 16:52 Dose: 4 mg Saccharomyces Boulardii (Florastor) 250 mg PO BID [facility] Last Admin: 06/09/17 17:04 Dose: 250 mg - Labs Labs: 06/09/17 08:08 06/09/17 08:08 Attending/Attestation - Attestation I have personally seen and examined this patient.: Yes I have fully participated in the care of the patient.: Yes I have reviewed all pertinent clinical information, including history, physical exam and plan: Yes Notes (Text): 06/09/17 20:04 Patient was seen and examined at shortly after resident on 06/09/17 Exam, assessment and plan were thoroughly gone over with the resident. Repeat Urine Culture Catheterized ordered 06/08/17 and if negative then Medicine Team please discuss with ID Dr. Jain about discharge planning and which antibiotic to discharge patient on. Armando Rosado D.O.
[2017-06-09] MEDS: (Lantus) Insulin Glargine, Recombinant SC SCH (22:28)
[2017-06-10] MEDS: Vancomycin 1 gm/NS 200 ml 1 GM/200 ML BAG IVPB SCH ×2 (04:30→18:38)
[2017-06-10 08:32] LABS: BASO # 0.1 K/uL (0.0-0.2); BASO % 0.6 % (0.0-2.0); EOS # 0.6 K/uL (0.0-0.7); EOS % 5.1 % (0.0-4.0); HEMATOCRIT 33.8 % (34.0-47.0); LYMPH # 2.5 K/uL (1.0-4.3); LYMPH % 23.2 % (20.0-40.0); MEAN CELL VOLUME 84.8 fL (81.0-99.0); MEAN CORPUSCULAR HEMOGLOBIN 29.1 pg (27.0-31.0); MEAN CORPUSCULAR HGB CONC 34.3 g/dL (33.0-37.0); MEAN PLATELET VOLUME 7.2 fL (7.2-11.7); MONO # 0.8 K/uL (0.0-0.8); MONO % 7.1 % (0.0-10.0); RED CELL DISTRIBUTION WIDTH 14.2 % (11.5-14.5); WHITE BLOOD COUNT 10.8 K/uL (4.8-10.8)
[2017-06-10 08:45] LABS: CHLORIDE 102 mmol/L (98-107)
[2017-06-10 08:46] LABS: POTASSIUM 4.4 mmol/L (3.6-5.2); SODIUM 140 mmol/L (132-148)
[2017-06-10 08:48] LABS: ALB/GLOB RATIO 0.9 (1.0-2.1); ALKALINE PHOSPHATASE 107 U/L (38-126); AST/SGOT 19 U/L (14-36); BILIRUBIN,TOTAL 0.6 mg/dL (0.2-1.3); CARBON DIOXIDE 28 mmol/L (22-30); GFR AFRICAN-AMERICAN > 60; TOTAL PROTEIN 7.6 g/dL (6.3-8.3)
[2017-06-10 08:49] LABS: ALT/SGPT 21 U/L (9-52); BLOOD UREA NITROGEN 8 mg/dL (7-17); CALCIUM 8.9 mg/dl (8.6-10.4); GLUCOSE,RANDOM 175 mg/dL (65-105); MAGNESIUM 1.8 mg/dL (1.6-2.3); PHOSPHOROUS 3.8 mg/dL (2.5-4.5)
[2017-06-10] MEDS: Saccharomyces Boulardi 250 mg Cap PO SCH ×2 (10:44→18:38)
[2017-06-10] MEDS: Bisacodyl 5mg EC Tab PO SCH (10:45)
[2017-06-10] MEDS: (Novolin R) Insulin Human Regular 100 units/ml vial SC SCH ×3 (10:45→17:30)
--- NOTE | 2017-06-10 14:39 | CP.PCM.PN ---
<Meg Cool - Last Filed: 06/10/17 16:29> Subjective - Date & Time of Evaluation Date of Evaluation: 06/10/17 Time of Evaluation: 14:38 - Subjective Subjective: Internal Medicine Progress Note for Dr. Gaspar Patient seen and examined at bedside. Patient had a blood pressure of 167/96 at 20:00, losartan 22:00. Nurse noted Blood tinged stool. Patient has no complaints. Patient denies Fever, chills, nausea, vomiting, patient admits to some abdominal discomfort. Patient denies constipation. Objective - Vital Signs/Intake and Output Vital Signs (last 24 hours): Temp Pulse Resp BP Pulse Ox 97.8 F 74 20 135/84 96 06/10/17 08:00 06/10/17 10:45 06/10/17 08:00 06/10/17 10:45 06/10/17 08:00 Intake and Output: 06/10/17 06/10/17 06:59 18:59 Intake Total 1000 Balance 1000 - Medications Medications: Current Medications Acetaminophen (Tylenol 325mg Tab) 650 mg PO Q6 PRN PRN Reason: Pain, moderate (4-7) Last Admin: 06/09/17 07:56 Dose: 650 mg Aspirin (Ecotrin) 81 mg PO DAILY [facility] Last Admin: 06/10/17 10:52 Dose: 81 mg Bisacodyl (Dulcolax) 5 mg PO DAILY [facility] Last Admin: 06/10/17 10:45 Dose: 5 mg Docusate Sodium (Colace) 100 mg PO BID [facility] Last Admin: 06/10/17 10:44 Dose: 100 mg Famotidine (Pepcid) 20 mg PO DAILY [facility] Last Admin: 06/10/17 10:45 Dose: 20 mg Guaifenesin (Mucinex La) 600 mg PO BID PRN PRN Reason: Cough Last Admin: 06/09/17 10:15 Dose: 600 mg Heparin Sodium (Porcine) (Heparin) 5,000 units SC Q8 [facility] Last Admin: 06/10/17 05:23 Dose: 5,000 units Imipenem/Cilastatin Sodium 500 (mg/ Sodium Chloride) 100 mls @ 100 mls/hr IVPB Q6H [facility] Last Admin: 06/10/17 08:15 Dose: 100 mls/hr Vancomycin/Sodium Chloride (Vancocin) 1 gm in 200 mls @ 166.6 mls/hr IVPB Q12H [facility] Stop: 06/11/17 17:01 Last Admin: 06/10/17 04:30 Dose: 166.6 mls/hr Insulin Glargine (Lantus) 13 unit SC HS [facility] Last Admin: 06/09/17 22:28 Dose: 13 units Insulin Human Regular (Novolin R) 4 unit SC TIDAC [facility] Last Admin: 06/10/17 12:53 Dose: 4 unit Losartan Potassium (Cozaar) 50 mg PO DAILY [facility] Last Admin: 06/10/17 10:44 Dose: 50 mg Ondansetron HCl (Zofran Inj) 4 mg IVP Q6H PRN PRN Reason: Nausea/Vomiting Last Admin: 06/05/17 16:52 Dose: 4 mg Saccharomyces Boulardii (Florastor) 250 mg PO BID [facility] Last Admin: 06/10/17 10:44 Dose: 250 mg - Labs Labs: 06/10/17 08:25 06/10/17 08:25 - Constitutional Appears: Non-toxic, No Acute Distress - Head Exam Head Exam: NORMAL INSPECTION - Eye Exam Eye Exam: EOMI, Normal appearance - ENT Exam ENT Exam: Mucous Membranes Moist - Neck Exam Neck Exam: Full ROM - Respiratory Exam Respiratory Exam: NORMAL BREATHING PATTERN. absent: Accessory Muscle Use, Respiratory Distress - Cardiovascular Exam Cardiovascular Exam: REGULAR RHYTHM. absent: Bradycardia, Tachycardia - GI/Abdominal Exam GI & Abdominal Exam: Soft. absent: Tenderness Additional comments: patient points to discomfort. no rebound tenderness. - Extremities Exam Extremities Exam: Full ROM. absent: Pedal Edema - Neurological Exam Neurological Exam: Alert, Awake, Oriented x3 - Psychiatric Exam Psychiatric exam: Normal Affect, Normal Mood - Skin Skin Exam: Dry, Intact, Normal Color, Warm Assessment and Plan - Assessment and Plan (Free Text) Assessment: Pyelonphritis * ID (Susy) * Blood cultures * negative x5d * Urine culture * ESBL (06/01 E. coli; 06/04 Enterococcus faecium) * f/u repeat UA and UC on 06/08 via straight cath * CT Abdomen/Pelvis * Evidence of Pyelo with no abscess * Evidence of cystitis * Cystic mass lesion in lower uterine segment - will need follow up as outpatient * Primaxin 500 IV Q8, three more days of Primaxin (discontinue after 06/13 dose) * Vancomycin 1g Q12h (added 06/06) 06/06-06/10 Vancomycin. discontinued. Hypertension * Aspirin 81mg PO daily * Cozaar 50mg PO daily Diabetes * Accuchecks QAC and HS * A1C 9.1 * Diabetic clear liquids * Lantus 13 units SC HS * Insulin regular 4 units TID with meals Constipation * Colace 100mg PO BID Cough * CXR: negative for disease * Mucinex 600mg PRN * 06/09 flu a/b negative Cystic Mass Lower uterine segment & Cervix * Will need outpatient pelvic exam and transvaginal US Prophylaxis * Heparin 5000 units SC 8hours for DVT ppx * Pepcid 20mg PO daily for GI ppx * PT/OT eval * Florastor 250mg PO * zofran <Katy Gsapar V - Last Filed: 06/11/17 10:05> Objective - Vital Signs/Intake and Output Vital Signs (last 24 hours): Temp Pulse Resp BP Pulse Ox 97.7 F 70 20 163/88 H 95 06/11/17 08:00 06/11/17 08:00 06/11/17 08:00 06/11/17 08:00 06/11/17 08:00 Intake and Output: 06/11/17 06/11/17 06:59 18:59 Intake Total 820 Balance 820 - Medications Medications: Current Medications Acetaminophen (Tylenol 325mg Tab) 650 mg PO Q6 PRN PRN Reason: Pain, moderate (4-7) Last Admin: 06/09/17 07:56 Dose: 650 mg Aspirin (Ecotrin) 81 mg PO DAILY [facility] Last Admin: 06/10/17 10:52 Dose: 81 mg Bisacodyl (Dulcolax) 5 mg PO DAILY [facility] Last Admin: 06/10/17 10:45 Dose: 5 mg Docusate Sodium (Colace) 100 mg PO BID [facility] Last Admin: 06/10/17 18:38 Dose: 100 mg Famotidine (Pepcid) 20 mg PO DAILY [facility] Last Admin: 06/10/17 10:45 Dose: 20 mg Guaifenesin (Mucinex La) 600 mg PO BID PRN PRN Reason: Cough Last Admin: 06/09/17 10:15 Dose: 600 mg Heparin Sodium (Porcine) (Heparin) 5,000 units SC Q8 [facility] Last Admin: 06/11/17 06:13 Dose: 5,000 units Imipenem/Cilastatin Sodium 500 (mg/ Sodium Chloride) 100 mls @ 100 mls/hr IVPB Q6H [facility] Last Admin: 06/11/17 07:58 Dose: 100 mls/hr Insulin Glargine (Lantus) 13 unit SC HS [facility] Last Admin: 06/10/17 22:30 Dose: 13 units Insulin Human Regular (Novolin R) 4 unit SC TIDAC [facility] Last Admin: 06/11/17 07:58 Dose: 4 unit Losartan Potassium (Cozaar) 50 mg PO DAILY [facility] Last Admin: 06/10/17 10:44 Dose: 50 mg Ondansetron HCl (Zofran Inj) 4 mg IVP Q6H PRN PRN Reason: Nausea/Vomiting Last Admin: 06/05/17 16:52 Dose: 4 mg Saccharomyces Boulardii (Florastor) 250 mg PO BID [facility] Last Admin: 06/10/17 18:38 Dose: 250 mg - Labs Labs: 06/10/17 08:25 06/11/17 08:11 Attending/Attestation - Attestation I have personally seen and examined this patient.: Yes I have fully participated in the care of the patient.: Yes I have reviewed all pertinent clinical information, including history, physical exam and plan: Yes Notes (Text): This is late computer entry for 06/10/17. Patient seen, examined, and case discussed with day-time resident. Patient seen with infectious disease, Dr. Jain in the afternoon. Patient reporting she is feeling better, denies acute complaints. Patient eager to go home. Patient's repeat urine culture shows no growth. Infectious Disease recommends for at least 10 days of IV abx to cover to treatment for ESBL+. Patient revisited in the afternoon with Nurse Practitioner, Jairo Rosado with patient's daughter at bedside. Discussed with patient is improving but will need IV abx to complete therapy. Patient ordered for pelvis US given questionable mass noted on prior CT scan. Assessment/Plan 1.) SIRS Pyleonephritis +ESBL UTI * Suspicion for Sepsis; source of infection: uti/pyelonephritis, Tmax: 99.5F, WBC: 23.8 on admission; lactate acid: 1.2-->code sepsis not called given normal lactate * Blood cultures (9/16): no growth after 5 days X2 * Urine culture (06/01): E. Coli + ESBL * Urine culture (06/04/17): Enterococcus Faecium * Urine culture (06/08/17): no growth (<1000 CFU) * Abdomen Obstructive Series (06/02/17): no evidence of acute pathology in the chest and abdomen. No evidence of mechanical bowel obstruction * CT Abdomen/Pelvis PO and IV contrast (06/02): moderate size focal area of heterogenous decreased right renal cortex consistent with patient's known history of pyelonephritis. No evidence of abscess formation. Interval appearance of mild bilateral hydronephrosis and hydroureter since the previous exam. Low attenuation cystic mass lesion at lower uterine segment and uterine cervix. Mild to moderate urinary bladder wall thickening suspicious for cystitis. * infectious Disease (Dr. Jain on board) * contact isolation given ESBL+ * Primaxin 500mg IV Q 6 Hhour (active 06/04/17)-->will need to complete ten days () per ID for discharge 3.) History of Hypertension * Aspirin 81mg PO daily * Cozaar 50mg PO daily (hold SBP<100) 4.) History of Diabetes * Accuchecks QAC and HS * Lantus 13 units subqHS * Novolin R 4 units sub TIDAC * Cozaar 50mg PO daily * Uncontrolled; a1c: 9.1 5.) History of Constipation * Abdomen Obstructive Series (06/02/17): no evidence of acute pathology in the chest and abdomen. No evidence of mechanical bowel obstruction * Colace 100mg PO BID * has had bowel movement 6.) Prophylaxis * Heparin 5000 units subqQ 8hours for DVT ppx * Pepcid 20mg PO daily for GI ppx * Florastor 250mg PO bid * Contact isolation Disposition: patient must complete 10 days of IV abx for ESBL+ UTI prior to discharge. Patient to finish last dose on 06/14/17.
--- NOTE | 2017-06-10 17:12 | US ---
Indication: CT abnormality Comparison: CT abdomen and pelvis with IV contrast performed 06/02/17 Technique: Real-time transabdominal pelvic ultrasound was performed. In addition a transvaginal pelvic ultrasound was necessary to better depict pelvic anatomy. Findings: The patient is status post total hysterectomy and bilateral oophorectomy, as per patient's history. No gross abnormality is seen in the pelvis. No mass or free fluid is identified. Impression: Status post hysterectomy and bilateral oophorectomy. No gross abnormality detected in the pelvis. If indicated, recommend pelvic MRI for further evaluation and abnormality described on CT abdomen and pelvis performed 06/02/17.
--- NOTE | 2017-06-10 21:14 | CP.PCM.PN ---
Subjective - Date & Time of Evaluation Date of Evaluation: 06/10/17 Time of Evaluation: 05:00 - Subjective Subjective: dictated Objective - Vital Signs/Intake and Output Vital Signs (last 24 hours): Temp Pulse Resp BP Pulse Ox 97.7 F 72 20 149/78 97 06/10/17 15:10 06/10/17 15:10 06/10/17 15:10 06/10/17 15:10 06/10/17 15:10 Intake and Output: 06/10/17 06/11/17 18:59 06:59 Intake Total 500 Balance 500 - Medications Medications: Current Medications Acetaminophen (Tylenol 325mg Tab) 650 mg PO Q6 PRN PRN Reason: Pain, moderate (4-7) Last Admin: 06/09/17 07:56 Dose: 650 mg Aspirin (Ecotrin) 81 mg PO DAILY [facility] Last Admin: 06/10/17 10:52 Dose: 81 mg Bisacodyl (Dulcolax) 5 mg PO DAILY [facility] Last Admin: 06/10/17 10:45 Dose: 5 mg Docusate Sodium (Colace) 100 mg PO BID [facility] Last Admin: 06/10/17 18:38 Dose: 100 mg Famotidine (Pepcid) 20 mg PO DAILY [facility] Last Admin: 06/10/17 10:45 Dose: 20 mg Guaifenesin (Mucinex La) 600 mg PO BID PRN PRN Reason: Cough Last Admin: 06/09/17 10:15 Dose: 600 mg Heparin Sodium (Porcine) (Heparin) 5,000 units SC Q8 [facility] Last Admin: 06/10/17 14:51 Dose: 5,000 units Imipenem/Cilastatin Sodium 500 (mg/ Sodium Chloride) 100 mls @ 100 mls/hr IVPB Q6H [facility] Last Admin: 06/10/17 14:50 Dose: 100 mls/hr Insulin Glargine (Lantus) 13 unit SC HS [facility] Last Admin: 06/09/17 22:28 Dose: 13 units Insulin Human Regular (Novolin R) 4 unit SC TIDAC [facility] Last Admin: 06/10/17 12:53 Dose: 4 unit Losartan Potassium (Cozaar) 50 mg PO DAILY [facility] Last Admin: 06/10/17 10:44 Dose: 50 mg Ondansetron HCl (Zofran Inj) 4 mg IVP Q6H PRN PRN Reason: Nausea/Vomiting Last Admin: 06/05/17 16:52 Dose: 4 mg Saccharomyces Boulardii (Florastor) 250 mg PO BID [facility] Last Admin: 06/10/17 18:38 Dose: 250 mg - Labs Labs: 06/10/17 08:25 06/10/17 08:25
[2017-06-10] MEDS: (Lantus) Insulin Glargine, Recombinant SC SCH (22:30)
--- NOTE | 2017-06-11 01:09 | PN ---
DATE: SUBJECTIVE: The patient was seen today with the resident, as I could speak her language. She was feeling better. She denied any complaints. No abdominal problems. No nausea. No vomiting. No fever. No chills. She had very minimal abdominal discomfort. No constipation. PHYSICAL EXAMINATION VITAL SIGNS: Temperature was 97.8, pulse 74, blood pressure 135/84, and respirations are 20. HEENT: Head is atraumatic and normocephalic. Pupils are reacting to light. NECK: Supple. LUNGS: Clear. HEART: S1 and S2, regular. No murmurs appreciated. ABDOMEN: Soft and nontender. No guarding. No rigidity present. No CVA tenderness present. EXTREMITIES: No edema. No clubbing. Dry skin. LABORATORY DATA: The patient's blood cultures have been negative. Urine culture on 06/01/2017 had ESBL and 06/04/2017 was Enterococcus faecium and follow up of the repeat UA and urine culture, which was categorized as negative from 06/08/2017, and the patient has been on antibiotics. At this time, we will discontinue the vancomycin and continue imipenem and give it for three more days to cover for the pyelonephritis that she has. Also, I am told that the abdominal and pelvic CT showed some mass and they are going to do transvaginal ultrasound. She has a cystic mass in the uterine segment. We will look into the report when it is available. IMPRESSION AND PLAN: She came in with the urinary tract infection resistant, ESBL positive, and has hydronephrosis and hydroureter. The patient also at the time when I am dictating this has had pelvic and transvaginal ultrasound, which shows posthysterectomy and bilateral oophorectomy. No gross abnormality in the pelvis detected, so there was nothing there. At this time to continue for three more days. I think the enterococcus was fecal contaminant. We will discontinue the vancomycin and continue imipenem at this time. Tushar Jain MD
--- NOTE | 2017-06-11 07:10 | CP.PCM.PN ---
<TravonMeg - Last Filed: 06/11/17 18:12> Subjective - Date & Time of Evaluation Date of Evaluation: 06/11/17 Time of Evaluation: 07:09 - Subjective Subjective: Internal Medicine Progress note for Dr. Gaspar Patient has no complaints. No acute events overnight. Patient states she's doing well. no abdominal pain, difficulties urinating. Patient denies fever, chills. Patient wanted to know when she can go home. Patient is to finish her last dose of antibiotics on June 14 2017. Objective - Vital Signs/Intake and Output Vital Signs (last 24 hours): Temp Pulse Resp BP Pulse Ox 97.8 F 74 20 136/67 97 06/10/17 23:50 06/10/17 23:50 06/10/17 23:50 06/10/17 23:50 06/10/17 23:50 Intake and Output: 06/11/17 06/11/17 06:59 18:59 Intake Total 820 Balance 820 - Medications Medications: Current Medications Acetaminophen (Tylenol 325mg Tab) 650 mg PO Q6 PRN PRN Reason: Pain, moderate (4-7) Last Admin: 06/09/17 07:56 Dose: 650 mg Aspirin (Ecotrin) 81 mg PO DAILY [facility] Last Admin: 06/10/17 10:52 Dose: 81 mg Bisacodyl (Dulcolax) 5 mg PO DAILY [facility] Last Admin: 06/10/17 10:45 Dose: 5 mg Docusate Sodium (Colace) 100 mg PO BID [facility] Last Admin: 06/10/17 18:38 Dose: 100 mg Famotidine (Pepcid) 20 mg PO DAILY [facility] Last Admin: 06/10/17 10:45 Dose: 20 mg Guaifenesin (Mucinex La) 600 mg PO BID PRN PRN Reason: Cough Last Admin: 06/09/17 10:15 Dose: 600 mg Heparin Sodium (Porcine) (Heparin) 5,000 units SC Q8 [facility] Last Admin: 06/11/17 06:13 Dose: 5,000 units Imipenem/Cilastatin Sodium 500 (mg/ Sodium Chloride) 100 mls @ 100 mls/hr IVPB Q6H [facility] Last Admin: 06/11/17 02:32 Dose: 100 mls/hr Insulin Glargine (Lantus) 13 unit SC HS [facility] Last Admin: 06/10/17 22:30 Dose: 13 units Insulin Human Regular (Novolin R) 4 unit SC TIDAC [facility] Last Admin: 06/10/17 17:30 Dose: Not Given Losartan Potassium (Cozaar) 50 mg PO DAILY [facility] Last Admin: 06/10/17 10:44 Dose: 50 mg Ondansetron HCl (Zofran Inj) 4 mg IVP Q6H PRN PRN Reason: Nausea/Vomiting Last Admin: 06/05/17 16:52 Dose: 4 mg Saccharomyces Boulardii (Florastor) 250 mg PO BID [facility] Last Admin: 06/10/17 18:38 Dose: 250 mg - Labs Labs: 06/10/17 08:25 06/10/17 08:25 - Constitutional Appears: Non-toxic - Head Exam Head Exam: NORMAL INSPECTION - Eye Exam Eye Exam: EOMI, Normal appearance - ENT Exam ENT Exam: Mucous Membranes Moist. absent: Mucous Membranes Dry - Neck Exam Neck Exam: Full ROM - Respiratory Exam Respiratory Exam: Clear to Ausculation Bilateral, NORMAL BREATHING PATTERN. absent: Accessory Muscle Use, Respiratory Distress - Cardiovascular Exam Cardiovascular Exam: REGULAR RHYTHM. absent: Bradycardia, Tachycardia - GI/Abdominal Exam GI & Abdominal Exam: Soft. absent: Tenderness - Extremities Exam Extremities Exam: Full ROM. absent: Pedal Edema - Back Exam Back Exam: Full ROM, NORMAL INSPECTION - Neurological Exam Neurological Exam: Alert, Awake, Oriented x3. absent: Normal Gait - Psychiatric Exam Psychiatric exam: Normal Affect, Normal Mood - Skin Skin Exam: Dry, Intact, Normal Color, Warm Assessment and Plan - Assessment and Plan (Free Text) Assessment: Transvaginal US/Pelvis s/p hysterectomy bilateral oopherectomy 06/02 CT abdomen/pelvis:low attenuation of cystic mass lesion changes in lower uterine segment and uterine cervix, [id number] bladder wall thickening, decreased enhancement at right renal cortex consistent with pyelonephritis. Pyelonphritis * ID (Susy) * Blood cultures * negative x5d * Urine culture * ESBL (06/01 E. coli; 06/04 Enterococcus faecium) * no growth on 06/08 Urine culture * CT Abdomen/Pelvis * Evidence of Pyelo with no abscess * Evidence of cystitis * Cystic mass lesion in lower uterine segment - will need follow up as outpatient * Primaxin 500 IV Q8, three more days of Primaxin (discontinue after 06/14 dose) * Vancomycin 1g Q12h (added 06/06) 06/06-06/10 Vancomycin. discontinued. Hypertension * Aspirin 81mg PO daily * Cozaar 50mg PO daily Diabetes * Accuchecks QAC and HS * A1C 9.1 * Diabetic clear liquids * Lantus 13 units SC HS * Insulin regular 4 units TID with meals Constipation * Colace 100mg PO BID Cough * CXR: negative for disease * Mucinex 600mg PRN * 06/09 flu a/b negative Cystic Mass Lower uterine segment & Cervix * Will need outpatient pelvic exam and transvaginal US Prophylaxis * Heparin 5000 units SC 8hours for DVT ppx * Pepcid 20mg PO daily for GI ppx * PT/OT eval * Florastor 250mg PO * zofran <Katy Gaspar V - Last Filed: 06/15/17 12:25> Objective - Vital Signs/Intake and Output Vital Signs (last 24 hours): Temp Pulse Resp BP Pulse Ox 97.7 F 71 20 139/82 97 06/15/17 07:47 06/15/17 07:47 06/15/17 07:47 06/15/17 07:47 06/15/17 07:47 - Medications Medications: Current Medications Acetaminophen (Tylenol 325mg Tab) 650 mg PO Q6 PRN PRN Reason: Pain, moderate (4-7) Last Admin: 06/15/17 09:33 Dose: 650 mg Aspirin (Ecotrin) 81 mg PO DAILY [facility] Last Admin: 06/15/17 09:29 Dose: 81 mg Dextrose (Dextrose 50% Inj) 0 ml IV STAT PRN; Protocol PRN Reason: Hyglycemia Protocol Dextrose (Glutose 15) 0 gm PO ONCE PRN; Protocol PRN Reason: Hypoglycemia Protocol Famotidine (Pepcid) 20 mg PO DAILY [facility] Last Admin: 06/15/17 09:30 Dose: 20 mg Glucagon (Glucagen Diagnostic Kit) 0 mg IM STAT PRN; Protocol PRN Reason: Hypoglycemia Protocol Guaifenesin (Mucinex La) 600 mg PO BID PRN PRN Reason: Cough Last Admin: 06/15/17 09:22 Dose: 600 mg Metronidazole (Flagyl) 500 mg in 100 mls @ 100 mls/hr IVPB Q8H [facility] Last Admin: 06/14/17 23:59 Dose: 100 mls/hr Dextrose (Dextrose 5% In Water 1000 Ml) 1,000 mls @ 0 mls/hr IV .Q0M PRN; Protocol; Per Protocol PRN Reason: Hypoglycemia Protocol Insulin Glargine (Lantus) 13 unit SC HS [facility] Last Admin: 06/14/17 21:27 Dose: 13 unit Insulin Human Regular (Novolin R) 4 unit SC TIDAC [facility] Last Admin: 06/15/17 07:30 Dose: 4 unit Losartan Potassium (Cozaar) 50 mg PO DAILY [facility] Last Admin: 06/15/17 09:29 Dose: 50 mg Ondansetron HCl (Zofran Inj) 4 mg IVP Q6H PRN PRN Reason: Nausea/Vomiting Last Admin: 06/05/17 16:52 Dose: 4 mg Promethazine HCl/Codeine (Phenergan/Codeine Oral Syrup) 5 ml PO Q4 PRN PRN Reason: Cough Last Admin: 06/15/17 09:00 Dose: 5 ml Saccharomyces Boulardii (Florastor) 250 mg PO BID [facility] Last Admin: 06/15/17 09:22 Dose: 250 mg Simethicone (Mylicon Chew Tab) 80 mg PO BID PRN PRN Reason: GI distress Last Admin: 06/14/17 17:11 Dose: 80 mg Vancomycin HCl (Vancocin (Oral Or Rectal Use)) 125 mg PO QID [facility] - Labs Labs: 06/14/17 11:49 06/14/17 11:49 Attending/Attestation - Attestation I have personally seen and examined this patient.: Yes I have fully participated in the care of the patient.: Yes I have reviewed all pertinent clinical information, including history, physical exam and plan: Yes Notes (Text): This is late computer entry for 06/11/17. Patient seen, examined and case discussed with day-time resident. Translation assistance noted in resident note with Guy Flores live in housekeeper. Patient denies acute complaints. Patient eager to home. Patient to complete ten day course of Primaxin per ID for ESBL+UTI. Assessment/Plan 1.) SIRS Pyleonephritis +ESBL UTI * Suspicion for Sepsis; source of infection: uti/pyelonephritis, Tmax: 99.5F, WBC: 23.8 on admission; lactate acid: 1.2-->code sepsis not called given normal lactate * Infectious Disease (Dr. Jain on board) * Blood cultures (06/01): no growth after 5 days X2 * Urine culture (06/01): E. Coli + ESBL * Urine culture (06/04/17): Enterococcus Faecium * Urine culture (06/08/17): no growth (<1000 CFU) * Abdomen Obstructive Series (06/02/17): no evidence of acute pathology in the chest and abdomen. No evidence of mechanical bowel obstruction * CT Abdomen/Pelvis PO and IV contrast (06/02): moderate size focal area of heterogenous decreased right renal cortex consistent with patient's known history of pyelonephritis. No evidence of abscess formation. Interval appearance of mild bilateral hydronephrosis and hydroureter since the previous exam. Low attenuation cystic mass lesion at lower uterine segment and uterine cervix. Mild to moderate urinary bladder wall thickening suspicious for cystitis. * contact isolation given ESBL+ * Primaxin 500mg IV Q 6 Hhour (active 06/04/17)-->will need to complete ten days () per ID for discharge 3.) History of Hypertension * Aspirin 81mg PO daily * Cozaar 50mg PO daily (hold SBP<100) 4.) History of Diabetes * Accuchecks QAC and HS * Lantus 13 units subqHS * Novolin R 4 units sub TIDAC * Cozaar 50mg PO daily * Uncontrolled; a1c: 9.1 5.) History of Constipation * Abdomen Obstructive Series (06/02/17): no evidence of acute pathology in the chest and abdomen. No evidence of mechanical bowel obstruction * Colace 100mg PO BID * has had bowel movement 6) Cystic mass lesion at uterine segment and uterine cervix * CT Abdomen/Pelvis PO and IV contrast (06/02): moderate size focal area of heterogenous decreased right renal cortex consistent with patient's known history of pyelonephritis. No evidence of abscess formation. Interval appearance of mild bilateral hydronephrosis and hydroureter since the previous exam. Low attenuation cystic mass lesion at lower uterine segment and uterine cervix. Mild to moderate urinary bladder wall thickening suspicious for cystitis. * Transvaginal/Pelvis US (06/10/17): status post hysterectomy and bilateral opphorectomy. No gross abnormality detected in the pelvis. 7.) Prophylaxis * Heparin 5000 units subqQ 8hours for DVT ppx * Pepcid 20mg PO daily for GI ppx * Florastor 250mg PO bid * Contact isolation Disposition: patient must complete 10 days of IV abx for ESBL+ UTI prior to discharge. Patient to finish last dose on 06/14/17.
[2017-06-11] MEDS: (Novolin R) Insulin Human Regular 100 units/ml vial SC SCH ×3 (07:58→17:20)
[2017-06-11 09:08] LABS: MAGNESIUM 1.8 mg/dL (1.6-2.3)
[2017-06-11 09:12] LABS: ALB/GLOB RATIO 0.9 (1.0-2.1); ALKALINE PHOSPHATASE 118 U/L (38-126); ALT/SGPT 25 U/L (9-52); AST/SGOT 25 U/L (14-36); BILIRUBIN,TOTAL 0.5 mg/dL (0.2-1.3); BLOOD UREA NITROGEN 10 mg/dL (7-17); CALCIUM 9.1 mg/dl (8.6-10.4); CARBON DIOXIDE 25 mmol/L (22-30); CHLORIDE 99 mmol/L (98-107); GFR AFRICAN-AMERICAN > 60; GLUCOSE,RANDOM 159 mg/dL (65-105); PHOSPHOROUS 3.6 mg/dL (2.5-4.5); SODIUM 137 mmol/L (132-148); TOTAL PROTEIN 7.7 g/dL (6.3-8.3)
[2017-06-11] MEDS: Bisacodyl 5mg EC Tab PO SCH (10:25)
[2017-06-11] MEDS: Saccharomyces Boulardi 250 mg Cap PO SCH ×2 (10:25→17:20)
[2017-06-11 11:35] LABS: BASO # 0.1 K/uL (0.0-0.2); EOS # 0.4 K/uL (0.0-0.7); EOS % 3.3 % (0.0-4.0); HEMATOCRIT 36.4 % (34.0-47.0); LYMPH # 2.8 K/uL (1.0-4.3); LYMPH % 21.7 % (20.0-40.0); MEAN CELL VOLUME 85.1 fL (81.0-99.0); MEAN CORPUSCULAR HEMOGLOBIN 28.4 pg (27.0-31.0); MEAN CORPUSCULAR HGB CONC 33.3 g/dL (33.0-37.0); MEAN PLATELET VOLUME 7.2 fL (7.2-11.7); MONO # 0.9 K/uL (0.0-0.8); MONO % 6.9 % (0.0-10.0); NRBC % 0.1 % (0.0-2.0); WHITE BLOOD COUNT 12.7 K/uL (4.8-10.8)
[2017-06-11] MEDS: (Lantus) Insulin Glargine, Recombinant SC SCH (22:38)
[2017-06-12 07:50] VITALS: RESP 20
[2017-06-12 08:24] LABS: BASO # 0.1 K/uL (0.0-0.2); BASO % 0.7 % (0.0-2.0); EOS # 0.4 K/uL (0.0-0.7); EOS % 3.6 % (0.0-4.0); LYMPH # 2.7 K/uL (1.0-4.3); LYMPH % 22.5 % (20.0-40.0); MEAN CELL VOLUME 85.4 fL (81.0-99.0); MEAN CORPUSCULAR HEMOGLOBIN 28.6 pg (27.0-31.0); MEAN CORPUSCULAR HGB CONC 33.4 g/dL (33.0-37.0); MEAN PLATELET VOLUME 7.3 fL (7.2-11.7); MONO # 0.8 K/uL (0.0-0.8); MONO % 6.7 % (0.0-10.0); RED CELL DISTRIBUTION WIDTH 13.9 % (11.5-14.5)
[2017-06-12 08:40] LABS: CHLORIDE 98 mmol/L (98-107); POTASSIUM 4.2 mmol/L (3.6-5.2); SODIUM 135 mmol/L (132-148)
[2017-06-12 08:42] LABS: AST/SGOT 21 U/L (14-36); BILIRUBIN,TOTAL 0.7 mg/dL (0.2-1.3); CARBON DIOXIDE 23 mmol/L (22-30); GFR AFRICAN-AMERICAN > 60
[2017-06-12 08:43] LABS: ALB/GLOB RATIO 0.9 (1.0-2.1); ALKALINE PHOSPHATASE 102 U/L (38-126); ALT/SGPT 22 U/L (9-52); BLOOD UREA NITROGEN 11 mg/dL (7-17); CALCIUM 8.7 mg/dl (8.6-10.4); GLUCOSE,RANDOM 188 mg/dL (65-105); MAGNESIUM 1.7 mg/dL (1.6-2.3); PHOSPHOROUS 3.6 mg/dL (2.5-4.5); TOTAL PROTEIN 7.6 g/dL (6.3-8.3)
[2017-06-12] MEDS: Saccharomyces Boulardi 250 mg Cap PO SCH ×2 (09:16→18:29)
[2017-06-12] MEDS: (Novolin R) Insulin Human Regular 100 units/ml vial SC SCH ×3 (09:16→18:29)
[2017-06-12] MEDS: Bisacodyl 5mg EC Tab PO SCH (09:16)
--- NOTE | 2017-06-12 10:35 | CP.PCM.PN ---
<Meg Cool - Last Filed: 06/12/17 15:48> Subjective - Date & Time of Evaluation Date of Evaluation: 06/12/17 Time of Evaluation: 10:33 - Subjective Subjective: Internal Medicine progress note for Dr. Gaspar [employer] [id number] Ms[address] Rodríguez Patient is seen and examined at bedside. No acute events overnight. Patient admits to some pain, but is tolerating well. Patient states she is walking around with walker. Patient states she has difficulty seeing and can see a little clearer with glasses. Patient states she feels as if she's looking through butter. Patient is aware she is set for discharge after her last dose of antibiotics on June 14. Patient was told daughter can medicinal plant picker patient from hospital Saturday evening. Objective - Vital Signs/Intake and Output Vital Signs (last 24 hours): Temp Pulse Resp BP Pulse Ox 97.8 F 76 20 137/85 96 06/12/17 07:00 06/12/17 09:13 06/12/17 07:00 06/12/17 09:13 06/12/17 07:00 Intake and Output: 06/12/17 06/12/17 06:59 18:59 Intake Total 650 Balance 650 - Medications Medications: Current Medications Acetaminophen (Tylenol 325mg Tab) 650 mg PO Q6 PRN PRN Reason: Pain, moderate (4-7) Last Admin: 06/09/17 07:56 Dose: 650 mg Aspirin (Ecotrin) 81 mg PO DAILY [facility] Last Admin: 06/12/17 09:16 Dose: 81 mg Bisacodyl (Dulcolax) 5 mg PO DAILY [facility] Last Admin: 06/12/17 09:16 Dose: 5 mg Docusate Sodium (Colace) 100 mg PO BID [facility] Last Admin: 06/12/17 09:16 Dose: 100 mg Famotidine (Pepcid) 20 mg PO DAILY [facility] Last Admin: 06/12/17 09:16 Dose: 20 mg Guaifenesin (Mucinex La) 600 mg PO BID PRN PRN Reason: Cough Last Admin: 06/09/17 10:15 Dose: 600 mg Imipenem/Cilastatin Sodium 500 (mg/ Sodium Chloride) 100 mls @ 100 mls/hr IVPB Q6H [facility] Last Admin: 06/12/17 09:19 Dose: 100 mls/hr Insulin Glargine (Lantus) 13 unit SC HS [facility] Last Admin: 06/11/17 22:38 Dose: 13 units Insulin Human Regular (Novolin R) 4 unit SC TIDAC [facility] Last Admin: 06/12/17 09:16 Dose: 4 unit Losartan Potassium (Cozaar) 50 mg PO DAILY [facility] Last Admin: 06/12/17 09:16 Dose: 50 mg Ondansetron HCl (Zofran Inj) 4 mg IVP Q6H PRN PRN Reason: Nausea/Vomiting Last Admin: 06/05/17 16:52 Dose: 4 mg Saccharomyces Boulardii (Florastor) 250 mg PO BID [facility] Last Admin: 06/12/17 09:16 Dose: 250 mg - Labs Labs: 06/12/17 08:12 06/12/17 08:12 - Constitutional Appears: Non-toxic, No Acute Distress - Head Exam Head Exam: NORMAL INSPECTION - Eye Exam Eye Exam: EOMI, Normal appearance Additional comments: no cataracts visualized, arcus senilis visualized with pupils equal and reactive bilaterally - ENT Exam ENT Exam: Mucous Membranes Moist - Neck Exam Neck Exam: Full ROM. absent: Tenderness - Respiratory Exam Respiratory Exam: NORMAL BREATHING PATTERN. absent: Accessory Muscle Use, Respiratory Distress - Cardiovascular Exam Cardiovascular Exam: REGULAR RHYTHM. absent: Bradycardia, Tachycardia - GI/Abdominal Exam GI & Abdominal Exam: Soft. absent: Tenderness - Extremities Exam Extremities Exam: Full ROM, Normal Inspection. absent: Pedal Edema - Neurological Exam Neurological Exam: Alert, Awake, Oriented x3 - Psychiatric Exam Psychiatric exam: Normal Affect, Normal Mood - Skin Skin Exam: Dry, Intact, Normal Color, Warm Assessment and Plan - Assessment and Plan (Free Text) Assessment: 71F ESBL positive pylenephritis, resolving. urine culture negative. PMH: HTN, DM , Pyelonphritis * ID Consult: Dr. Jain * Blood cultures: negative * Urine culture * ESBL (06/01 E. coli; 06/04 Enterococcus faecium) * 06/08 Urine culture - no growth * Contact precautions removed * CT Abdomen/Pelvis * Evidence of Pyelo with no abscess * Evidence of cystitis * Cystic mass lesion in lower uterine segment - will need follow up as outpatient * Primaxin 500 IV Q8, three more days of Primaxin (discontinue after 06/14 dose) * Vancomycin 1g Q12h (added 06/06) 06/06-06/10 Vancomycin. discontinued. Hypertension * Aspirin 81mg PO daily * Cozaar 50mg PO daily Diabetes * Accuchecks QAC and HS * A1C 9.1 * Diabetic clear liquids * Lantus 13 units SC HS * Insulin regular 4 units TID with meals Constipation * Colace 100mg PO BID Cough * CXR: negative for disease * Mucinex 600mg PRN * 06/09 flu a/b negative Cystic Mass Lower uterine segment & Cervix * 06/10 Transvaginal US/Pelvis s/p hysterectomy bilateral oopherectomy * 06/02 CT abdomen/pelvis:low attenuation of cystic mass lesion changes in lower uterine segment and uterine cervix, [id number] bladder wall thickening, decreased enhancement at right renal cortex consistent with pyelonephritis. blurry vision * Outpatient follow up with phosphoric acid supervisor Prophylaxis * Heparin 5000 units SC 8hours for DVT ppx * Pepcid 20mg PO daily for GI ppx * PT/OT eval * Florastor 250mg PO * Migdalia <Katy Gaspar V - Last Filed: 06/15/17 12:28> Objective - Vital Signs/Intake and Output Vital Signs (last 24 hours): Temp Pulse Resp BP Pulse Ox 97.7 F 71 20 139/82 97 06/15/17 07:47 06/15/17 07:47 06/15/17 07:47 06/15/17 07:47 06/15/17 07:47 - Medications Medications: Current Medications Acetaminophen (Tylenol 325mg Tab) 650 mg PO Q6 PRN PRN Reason: Pain, moderate (4-7) Last Admin: 06/15/17 09:33 Dose: 650 mg Aspirin (Ecotrin) 81 mg PO DAILY [facility] Last Admin: 06/15/17 09:29 Dose: 81 mg Dextrose (Dextrose 50% Inj) 0 ml IV STAT PRN; Protocol PRN Reason: Hyglycemia Protocol Dextrose (Glutose 15) 0 gm PO ONCE PRN; Protocol PRN Reason: Hypoglycemia Protocol Famotidine (Pepcid) 20 mg PO DAILY [facility] Last Admin: 06/15/17 09:30 Dose: 20 mg Glucagon (Glucagen Diagnostic Kit) 0 mg IM STAT PRN; Protocol PRN Reason: Hypoglycemia Protocol Guaifenesin (Mucinex La) 600 mg PO BID PRN PRN Reason: Cough Last Admin: 06/15/17 09:22 Dose: 600 mg Metronidazole (Flagyl) 500 mg in 100 mls @ 100 mls/hr IVPB Q8H [facility] Last Admin: 06/14/17 23:59 Dose: 100 mls/hr Dextrose (Dextrose 5% In Water 1000 Ml) 1,000 mls @ 0 mls/hr IV .Q0M PRN; Protocol; Per Protocol PRN Reason: Hypoglycemia Protocol Insulin Glargine (Lantus) 13 unit SC HS [facility] Last Admin: 06/14/17 21:27 Dose: 13 unit Insulin Human Regular (Novolin R) 4 unit SC TIDAC [facility] Last Admin: 06/15/17 07:30 Dose: 4 unit Losartan Potassium (Cozaar) 50 mg PO DAILY [facility] Last Admin: 06/15/17 09:29 Dose: 50 mg Ondansetron HCl (Zofran Inj) 4 mg IVP Q6H PRN PRN Reason: Nausea/Vomiting Last Admin: 06/05/17 16:52 Dose: 4 mg Promethazine HCl/Codeine (Phenergan/Codeine Oral Syrup) 5 ml PO Q4 PRN PRN Reason: Cough Last Admin: 06/15/17 09:00 Dose: 5 ml Saccharomyces Boulardii (Florastor) 250 mg PO BID [facility] Last Admin: 06/15/17 09:22 Dose: 250 mg Simethicone (Mylicon Chew Tab) 80 mg PO BID PRN PRN Reason: GI distress Last Admin: 06/14/17 17:11 Dose: 80 mg Vancomycin HCl (Vancocin (Oral Or Rectal Use)) 125 mg PO QID [facility] - Labs Labs: 06/14/17 11:49 06/14/17 11:49 Attending/Attestation - Attestation I have personally seen and examined this patient.: Yes I have fully participated in the care of the patient.: Yes I have reviewed all pertinent clinical information, including history, physical exam and plan: Yes Notes (Text): This is late computer entry for 06/12/17. Patient seen, examined and case discussed with day-time resident. Translation assistance noted in resident note with Guy Flores insulation board calender operator. Patient denies acute complaints. Patient eager to home. Patient to complete ten day course of Primaxin per ID for ESBL+UTI. Patient has watery eye but does not appear in conjuncvitis. Denies lines, denies floaters, denies pain within the eye. Patient reports vision improves with glasses but it is not a sudden change. Recommended to see opthamologist as outpatient. patient has not seen one and will need diabetic eye screening exam as well. Assessment/Plan 1.) SIRS Pyleonephritis +ESBL UTI * Suspicion for Sepsis; source of infection: uti/pyelonephritis, Tmax: 99.5F, WBC: 23.8 on admission; lactate acid: 1.2-->code sepsis not called given normal lactate * Infectious Disease (Dr. Jain on board) * Blood cultures (06/01): no growth after 5 days X2 * Urine culture (06/01): E. Coli + ESBL * Urine culture (06/04/17): Enterococcus Faecium * Urine culture (06/08/17): no growth (<1000 CFU) * Abdomen Obstructive Series (06/02/17): no evidence of acute pathology in the chest and abdomen. No evidence of mechanical bowel obstruction * CT Abdomen/Pelvis PO and IV contrast (06/02): moderate size focal area of heterogenous decreased right renal cortex consistent with patient's known history of pyelonephritis. No evidence of abscess formation. Interval appearance of mild bilateral hydronephrosis and hydroureter since the previous exam. Low attenuation cystic mass lesion at lower uterine segment and uterine cervix. Mild to moderate urinary bladder wall thickening suspicious for cystitis. * contact isolation given ESBL+ * Primaxin 500mg IV Q 6 Hhour (active 06/04/17)-->will need to complete ten days () per ID for discharge 3.) History of Hypertension * Aspirin 81mg PO daily * Cozaar 50mg PO daily (hold SBP<100) 4.) History of Diabetes * Accuchecks QAC and HS * Lantus 13 units subqHS * Novolin R 4 units sub TIDAC * Cozaar 50mg PO daily * Uncontrolled; a1c: 9.1 5.) History of Constipation * Abdomen Obstructive Series (06/02/17): no evidence of acute pathology in the chest and abdomen. No evidence of mechanical bowel obstruction * Colace 100mg PO BID * has had bowel movement 6) Cystic mass lesion at uterine segment and uterine cervix * CT Abdomen/Pelvis PO and IV contrast (06/02): moderate size focal area of heterogenous decreased right renal cortex consistent with patient's known history of pyelonephritis. No evidence of abscess formation. Interval appearance of mild bilateral hydronephrosis and hydroureter since the previous exam. Low attenuation cystic mass lesion at lower uterine segment and uterine cervix. Mild to moderate urinary bladder wall thickening suspicious for cystitis. * Transvaginal/Pelvis US (06/10/17): status post hysterectomy and bilateral opphorectomy. No gross abnormality detected in the pelvis. 7.) Prophylaxis * Heparin 5000 units subqQ 8hours for DVT ppx * Pepcid 20mg PO daily for GI ppx * Florastor 250mg PO bid * Contact isolation Disposition: patient must complete 10 days of IV abx for ESBL+ UTI prior to discharge. Patient to finish last dose on 06/14/17.
[2017-06-12] MEDS: (Lantus) Insulin Glargine, Recombinant SC SCH (21:32)
[2017-06-13] MEDS: (Novolin R) Insulin Human Regular 100 units/ml vial SC SCH ×3 (08:56→17:28)
[2017-06-13] MEDS: Bisacodyl 5mg EC Tab PO SCH (10:18)
[2017-06-13] MEDS: Saccharomyces Boulardi 250 mg Cap PO SCH ×2 (10:18→17:29)
--- NOTE | 2017-06-13 11:09 | CP.PCM.PN ---
Addendum entered and electronically signed by Meg Cool DO 06/13/17 14:14: 06/13 CXR (not 06/12): shows right hilar prominence, mild interstitial prominence. similar appearance to previous XRAY, but will less inspiratory effort Original Note: <Meg Cool - Last Filed: 06/13/17 14:10> Subjective - Date & Time of Evaluation Date of Evaluation: 06/13/17 Time of Evaluation: 11:05 - Subjective Subjective: Internal Medicine for Dr. Gaspar Patient says she's feeling well. No events overnight per nursing staff. Patient states she has gas, urinating well, patient also has a cough and an sore throat. Patient denies any other complaints, no abdominal pain, chest pain, headache. Objective - Vital Signs/Intake and Output Vital Signs (last 24 hours): Temp Pulse Resp BP Pulse Ox 98 F 72 20 150/82 98 06/13/17 08:00 06/13/17 10:17 06/13/17 08:00 06/13/17 10:17 06/13/17 08:00 Intake and Output: 06/13/17 06/13/17 06:59 18:59 Intake Total 200 Balance 200 - Medications Medications: Current Medications Acetaminophen (Tylenol 325mg Tab) 650 mg PO Q6 PRN PRN Reason: Pain, moderate (4-7) Last Admin: 06/09/17 07:56 Dose: 650 mg Aspirin (Ecotrin) 81 mg PO DAILY [facility] Last Admin: 06/13/17 10:17 Dose: 81 mg Bisacodyl (Dulcolax) 5 mg PO DAILY [facility] Last Admin: 06/13/17 10:18 Dose: 5 mg Docusate Sodium (Colace) 100 mg PO BID [facility] Last Admin: 06/13/17 10:18 Dose: 100 mg Famotidine (Pepcid) 20 mg PO DAILY [facility] Last Admin: 06/13/17 10:18 Dose: 20 mg Guaifenesin (Mucinex La) 600 mg PO BID PRN PRN Reason: Cough Last Admin: 06/09/17 10:15 Dose: 600 mg Imipenem/Cilastatin Sodium 500 (mg/ Sodium Chloride) 100 mls @ 100 mls/hr IVPB Q6H [facility] Last Admin: 06/13/17 08:56 Dose: 100 mls/hr Insulin Glargine (Lantus) 13 unit SC HS [facility] Last Admin: 06/12/17 21:32 Dose: 13 unit Insulin Human Regular (Novolin R) 4 unit SC TIDAC [facility] Last Admin: 06/13/17 08:56 Dose: 4 unit Losartan Potassium (Cozaar) 50 mg PO DAILY [facility] Last Admin: 06/13/17 10:18 Dose: 50 mg Ondansetron HCl (Zofran Inj) 4 mg IVP Q6H PRN PRN Reason: Nausea/Vomiting Last Admin: 06/05/17 16:52 Dose: 4 mg Promethazine HCl/Codeine (Phenergan/Codeine Oral Syrup) 5 ml PO Q4 PRN PRN Reason: Cough Saccharomyces Boulardii (Florastor) 250 mg PO BID [facility] Last Admin: 06/13/17 10:18 Dose: 250 mg Simethicone (Mylicon Chew Tab) 80 mg PO BID PRN PRN Reason: GI distress Simethicone (Mylicon Liq) 40 mg PO BID [facility] - Labs Labs: 06/12/17 08:12 06/12/17 08:12 - Constitutional Appears: Non-toxic - Head Exam Head Exam: NORMAL INSPECTION - Eye Exam Eye Exam: EOMI, Normal appearance - ENT Exam ENT Exam: Mucous Membranes Moist - Neck Exam Neck Exam: Full ROM - Respiratory Exam Respiratory Exam: Clear to Ausculation Bilateral, NORMAL BREATHING PATTERN. absent: Chest Wall Tenderness - Cardiovascular Exam Cardiovascular Exam: REGULAR RHYTHM. absent: Bradycardia, Tachycardia - GI/Abdominal Exam GI & Abdominal Exam: Soft. absent: Tenderness - Rectal Exam Rectal Exam: NORMAL INSPECTION - Extremities Exam Extremities Exam: Full ROM, Normal Inspection. absent: Pedal Edema - Psychiatric Exam Psychiatric exam: Normal Affect, Normal Mood - Skin Skin Exam: Dry, Intact, Normal Color Assessment and Plan - Assessment and Plan (Free Text) Assessment: 71F ESBL positive pylenephritis, resolving. urine culture negative. PMH: HTN, DM , Pyelonphritis * ID Consult: Dr. Jain * Blood cultures: negative * Urine culture * ESBL (06/01 E. coli; 06/04 Enterococcus faecium) * 06/08 Urine culture - no growth * Contact precautions removed * CT Abdomen/Pelvis * Evidence of Pyelo with no abscess * Evidence of cystitis * Cystic mass lesion in lower uterine segment - will need follow up as outpatient * Primaxin 500 IV Q8, three more days of Primaxin (discontinue after 06/14 dose) * Vancomycin 1g Q12h (added 06/06) 06/06-06/10 Vancomycin. discontinued. Hypertension * Aspirin 81mg PO daily * Cozaar 50mg PO daily Diabetes * Accuchecks QAC and HS * A1C 9.1 * Diabetic clear liquids * Lantus 13 units SC HS * Insulin regular 4 units TID with meals Constipation * Colace 100mg PO BID * Simethacone for gas Cough * CXR: negative for disease * Mucinex 600mg PRN * 06/09 flu a/b negative * 06/12 CXR: * Promethazine/codeine 5cc POQ4 PRN for cough/sore throat Cystic Mass Lower uterine segment & Cervix * 06/10 Transvaginal US/Pelvis s/p hysterectomy bilateral oopherectomy * 06/02 CT abdomen/pelvis:low attenuation of cystic mass lesion changes in lower uterine segment and uterine cervix, [id number] bladder wall thickening, decreased enhancement at right renal cortex consistent with pyelonephritis. blurry vision * Ophthalmology consult: Dr. Oleksandr Sinclair Prophylaxis * Heparin 5000 units SC 8hours for DVT ppx * Pepcid 20mg PO daily for GI ppx * PT/OT eval * Florastor 250mg PO * Zofran <Katy Gaspar V - Last Filed: 06/15/17 12:20> Objective - Vital Signs/Intake and Output Vital Signs (last 24 hours): Temp Pulse Resp BP Pulse Ox 97.7 F 71 20 139/82 97 06/15/17 07:47 06/15/17 07:47 06/15/17 07:47 06/15/17 07:47 06/15/17 07:47 - Medications Medications: Current Medications Acetaminophen (Tylenol 325mg Tab) 650 mg PO Q6 PRN PRN Reason: Pain, moderate (4-7) Last Admin: 06/15/17 09:33 Dose: 650 mg Aspirin (Ecotrin) 81 mg PO DAILY [facility] Last Admin: 06/15/17 09:29 Dose: 81 mg Dextrose (Dextrose 50% Inj) 0 ml IV STAT PRN; Protocol PRN Reason: Hyglycemia Protocol Dextrose (Glutose 15) 0 gm PO ONCE PRN; Protocol PRN Reason: Hypoglycemia Protocol Famotidine (Pepcid) 20 mg PO DAILY [facility] Last Admin: 06/15/17 09:30 Dose: 20 mg Glucagon (Glucagen Diagnostic Kit) 0 mg IM STAT PRN; Protocol PRN Reason: Hypoglycemia Protocol Guaifenesin (Mucinex La) 600 mg PO BID PRN PRN Reason: Cough Last Admin: 06/15/17 09:22 Dose: 600 mg Metronidazole (Flagyl) 500 mg in 100 mls @ 100 mls/hr IVPB Q8H [facility] Last Admin: 06/14/17 23:59 Dose: 100 mls/hr Dextrose (Dextrose 5% In Water 1000 Ml) 1,000 mls @ 0 mls/hr IV .Q0M PRN; Protocol; Per Protocol PRN Reason: Hypoglycemia Protocol Insulin Glargine (Lantus) 13 unit SC HS [facility] Last Admin: 06/14/17 21:27 Dose: 13 unit Insulin Human Regular (Novolin R) 4 unit SC TIDAC [facility] Last Admin: 06/15/17 07:30 Dose: 4 unit Losartan Potassium (Cozaar) 50 mg PO DAILY [facility] Last Admin: 06/15/17 09:29 Dose: 50 mg Ondansetron HCl (Zofran Inj) 4 mg IVP Q6H PRN PRN Reason: Nausea/Vomiting Last Admin: 06/05/17 16:52 Dose: 4 mg Promethazine HCl/Codeine (Phenergan/Codeine Oral Syrup) 5 ml PO Q4 PRN PRN Reason: Cough Last Admin: 06/15/17 09:00 Dose: 5 ml Saccharomyces Boulardii (Florastor) 250 mg PO BID [facility] Last Admin: 06/15/17 09:22 Dose: 250 mg Simethicone (Mylicon Chew Tab) 80 mg PO BID PRN PRN Reason: GI distress Last Admin: 06/14/17 17:11 Dose: 80 mg Vancomycin HCl (Vancocin (Oral Or Rectal Use)) 125 mg PO QID [facility] - Labs Labs: 06/14/17 11:49 06/14/17 11:49 Attending/Attestation - Attestation I have personally seen and examined this patient.: Yes I have fully participated in the care of the patient.: Yes I have reviewed all pertinent clinical information, including history, physical exam and plan: Yes Notes (Text): This is late computer entry for 06/13/17. Patient seen, examined, and case discussed with day-time resident. Assistance in translation provided by Marcella Kelley, Nurse Practitioner. Patient reports she is having gas pains in the abdomen and reports her throat is little bit irritated. Patient also reports watery eye over the right eye but does not appear to have conjunctivitis. Sclera is not red, she is not tearing. 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 Patient denies diarrhea, denies constipation, denies abdominal pain, denies chest pain, denies shortness of breathe, and denies headache. Patient is for anticipated discharge tomorrow after finishing the last dose of Primaxin to cover for ESBL+ UTI. Assessment/Plan 1) Pyelonephritis; ESBL+ UTI * ID Consult: Dr. Jain on board help appreciated * Blood cultures (06/01/17): negative * Urine culture * ESBL (06/01 E. coli; 06/04 Enterococcus faecium) * 06/08 Urine culture - no growth * Contact precautions removed for ESBL+ UTI * CT Abdomen/Pelvis (06/02/17): moderate size focal are of heterogenous decreased enhancement of the right renal cortex consistent with pyelonephritis. mild bilateral hydronephrosis and hydroureter. Low attentuation cystic mass at the lower uterine segment and uterine cervix new. Mild to moderate urinary bladder wall thickening suspicious for cystitis. * Primaxin 500 IV Q8H (completed ten day course per ID, on 06/14/17) * Vancomycin 1g Q12h (added 06/06) 06/06-06/10 COMPLETED COURSE 2) Hypertension--Controlled * Aspirin 81mg PO daily * Cozaar 50mg PO daily * monitor vitals 3) Diabetes-->uncontrolled * Accuchecks QAC and HS * A1C 9.1 * Diabetic clear liquids * Lantus 13 units SC HS * Insulin regular 4 units TID with meals 4) Bronchitis * CXR: negative for disease * Mucinex 600mg PRN * 06/09 flu a/b negative * 06/12 CXR: right hilar prominence. Mild interstitial prominence may reflect infection or edema * Promethazine/codeine 5cc POQ4 PRN for cough/sore throat 5) Cystic Mass Lower uterine segment & Cervix (seen on CT abdomen) * 06/02 CT abdomen/pelvis:low attenuation of cystic mass lesion changes in lower uterine segment and uterine cervix, [id number] bladder wall thickening, decreased enhancement at right renal cortex consistent with pyelonephritis. * 06/10 Transvaginal US/Pelvis s/p hysterectomy bilateral oopherectomy; no gross abnormality identified in the pelvis. * Patient is not having post-menopausal bleeding . 6) Blurry vision * Ophthalmology consult: Dr. Oleksandr Sinclair, resident eft message at office 06/13 * Patient reports she has not seen a eye doctor in quite some time, report blurry vision improves with glasses, and has not had diabetic eye exam screening ; has watery eye over the right but does not appear to have conjunctivitis * Awaiting recommendations 7) Prophylaxis * Heparin 5000 units SC 8hours for DVT ppx * Pepcid 20mg PO daily for GI ppx * PT/OT eval * Florastor 250mg PO * Zofran 4mg IV Q 6hour PRN nausea * Contact isolation Disposition: Patient is for anticipated discharge tomorrow after finishing the last dose of Primaxin to cover for ESBL+ UTI.
[2017-06-13] MEDS: Simethicone 40 mg/0.6 ml Liquid (30 ml) PO SCH ×2 (13:00→17:07)
--- NOTE | 2017-06-13 13:04 | RAD ---
HISTORY: uri, cough COMPARISON: Chest x-ray performed 06/07/17 TECHNIQUE: Chest, one view. FINDINGS: Examination limited by habitus. LUNGS: Right hilar prominence. Mild interstitial prominence may reflect infection or edema. Please note that chest x-ray has limited sensitivity for the detection of pulmonary masses. PLEURA: No significant pleural effusion identified. No definite pneumothorax . CARDIOVASCULAR: Heart size appears within normal limits. Ectatic aorta. OSSEOUS STRUCTURES: Degenerative changes. VISUALIZED UPPER ABDOMEN: Unremarkable. OTHER FINDINGS: None. IMPRESSION: Right hilar prominence. Mild interstitial prominence may reflect infection or edema.
[2017-06-13] MEDS: Promethazine/Cod 6.25mg-10mg/5ml Syr UD PO PRN (13:10)
[2017-06-13] MEDS: (Lantus) Insulin Glargine, Recombinant SC SCH (21:29)
[2017-06-14] MEDS: (Novolin R) Insulin Human Regular 100 units/ml vial SC SCH ×3 (08:35→17:08)
[2017-06-14] MEDS: Saccharomyces Boulardi 250 mg Cap PO SCH ×2 (11:13→17:17)
[2017-06-14] MEDS: Simethicone 40 mg/0.6 ml Liquid (30 ml) PO SCH (11:13)
[2017-06-14] MEDS: Bisacodyl 5mg EC Tab PO SCH (11:14)
[2017-06-14] MEDS: Simethicone 80 mg Chewtab PO PRN ×2 (11:18→17:11)
[2017-06-14 12:04] LABS: BASO # 0.1 K/uL (0.0-0.2); BASO % 0.5 % (0.0-2.0); EOS # 0.4 K/uL (0.0-0.7); EOS % 3.1 % (0.0-4.0); HEMATOCRIT 39.3 % (34.0-47.0); LYMPH # 3.1 K/uL (1.0-4.3); LYMPH % 24.3 % (20.0-40.0); MEAN CELL VOLUME 85.2 fL (81.0-99.0); MEAN CORPUSCULAR HEMOGLOBIN 28.3 pg (27.0-31.0); MEAN CORPUSCULAR HGB CONC 33.1 g/dL (33.0-37.0); MEAN PLATELET VOLUME 7.5 fL (7.2-11.7); MONO # 0.8 K/uL (0.0-0.8); MONO % 6.1 % (0.0-10.0); NRBC % 0.1 % (0.0-2.0); RED CELL DISTRIBUTION WIDTH 14.4 % (11.5-14.5); WHITE BLOOD COUNT 12.8 K/uL (4.8-10.8)
[2017-06-14 12:11] LABS: CHLORIDE 98 mmol/L (98-107)
[2017-06-14 12:12] LABS: POTASSIUM 5.1 mmol/L (3.6-5.2); SODIUM 139 mmol/L (132-148)
[2017-06-14 12:14] LABS: ALB/GLOB RATIO 0.9 (1.0-2.1); ALKALINE PHOSPHATASE 104 U/L (38-126); AST/SGOT 24 U/L (14-36); BILIRUBIN,TOTAL 0.5 mg/dL (0.2-1.3); CARBON DIOXIDE 27 mmol/L (22-30); GFR AFRICAN-AMERICAN > 60; TOTAL PROTEIN 8.3 g/dL (6.3-8.3)
[2017-06-14 12:15] LABS: ALT/SGPT 21 U/L (9-52); BLOOD UREA NITROGEN 16 mg/dL (7-17); CALCIUM 9.8 mg/dl (8.6-10.4); GLUCOSE,RANDOM 185 mg/dL (65-105)
--- NOTE | 2017-06-14 13:59 | CP.PCM.PN ---
Addendum entered and electronically signed by Meg Cool DO 06/14/17 17:32: Patient's family requested scripts for Embrace test strip and no need for lancets Original Note: <Meg Cool - Last Filed: 06/14/17 13:59> Subjective - Date & Time of Evaluation Date of Evaluation: 06/14/17 Time of Evaluation: 13:57 - Subjective Subjective: Progress note for Dr. Gaspar Per nursing, patient had 5 episodes of diarrhea prior to morning rounds. C diff culture was ordered. Patient will not be discharged today. Re-evaluation of discharge tomorrow. Patient denies Fever, Chills, abdominal pain. Patient's daughter is at bedside translating for patient. Objective - Vital Signs/Intake and Output Vital Signs (last 24 hours): Temp Pulse Resp BP Pulse Ox 97.6 F 80 20 143/84 97 06/14/17 07:55 06/14/17 07:55 06/14/17 07:55 06/14/17 07:55 06/14/17 07:55 - Medications Medications: Current Medications Acetaminophen (Tylenol 325mg Tab) 650 mg PO Q6 PRN PRN Reason: Pain, moderate (4-7) Last Admin: 06/09/17 07:56 Dose: 650 mg Aspirin (Ecotrin) 81 mg PO DAILY [facility] Last Admin: 06/14/17 11:13 Dose: 81 mg Bisacodyl (Dulcolax) 5 mg PO DAILY [facility] Last Admin: 06/14/17 11:14 Dose: Not Given Docusate Sodium (Colace) 100 mg PO BID [facility] Last Admin: 06/14/17 11:14 Dose: Not Given Famotidine (Pepcid) 20 mg PO DAILY [facility] Last Admin: 06/14/17 11:13 Dose: 20 mg Guaifenesin (Mucinex La) 600 mg PO BID PRN PRN Reason: Cough Last Admin: 06/09/17 10:15 Dose: 600 mg Imipenem/Cilastatin Sodium 500 (mg/ Sodium Chloride) 100 mls @ 100 mls/hr IVPB Q6H [facility] Last Admin: 06/14/17 08:36 Dose: 100 mls/hr Insulin Glargine (Lantus) 13 unit SC HS [facility] Last Admin: 06/13/17 21:29 Dose: 13 unit Insulin Human Regular (Novolin R) 4 unit SC TIDAC [facility] Last Admin: 06/14/17 13:01 Dose: 4 unit Losartan Potassium (Cozaar) 50 mg PO DAILY [facility] Last Admin: 06/14/17 11:13 Dose: 50 mg Ondansetron HCl (Zofran Inj) 4 mg IVP Q6H PRN PRN Reason: Nausea/Vomiting Last Admin: 06/05/17 16:52 Dose: 4 mg Promethazine HCl/Codeine (Phenergan/Codeine Oral Syrup) 5 ml PO Q4 PRN PRN Reason: Cough Last Admin: 06/13/17 13:10 Dose: 5 ml Saccharomyces Boulardii (Florastor) 250 mg PO BID [facility] Last Admin: 06/14/17 11:13 Dose: 250 mg Simethicone (Mylicon Chew Tab) 80 mg PO BID PRN PRN Reason: GI distress Last Admin: 06/14/17 11:18 Dose: 80 mg Simethicone (Mylicon Liq) 40 mg PO BID [facility] Last Admin: 06/14/17 11:13 Dose: Not Given - Labs Labs: 06/14/17 11:49 06/14/17 11:49 - Constitutional Appears: Non-toxic - Head Exam Head Exam: NORMAL INSPECTION - Eye Exam Eye Exam: EOMI, Normal appearance - ENT Exam ENT Exam: Mucous Membranes Moist - Neck Exam Neck Exam: Full ROM. absent: Tenderness - Respiratory Exam Respiratory Exam: NORMAL BREATHING PATTERN. absent: Accessory Muscle Use, Respiratory Distress - Cardiovascular Exam Cardiovascular Exam: Tachycardia, REGULAR RHYTHM. absent: Bradycardia - GI/Abdominal Exam GI & Abdominal Exam: Soft. absent: Tenderness - Extremities Exam Extremities Exam: Full ROM. absent: Pedal Edema - Psychiatric Exam Psychiatric exam: Normal Affect, Normal Mood - Skin Skin Exam: Dry, Intact, Normal Color, Warm Assessment and Plan - Assessment and Plan (Free Text) Assessment: 71F ESBL positive pylenephritis, resolving. urine culture negative. PMH: HTN, DM , Pyelonphritis * ID Consult: Dr. Jain * Blood cultures: negative * Urine culture * ESBL (06/01 E. coli; 06/04 Enterococcus faecium) * 06/08 Urine culture - no growth * Contact precautions removed * CT Abdomen/Pelvis * Evidence of Pyelo with no abscess * Evidence of cystitis * Cystic mass lesion in lower uterine segment - will need follow up as outpatient * Primaxin 500 IV Q8, three more days of Primaxin (discontinue after 06/14 dose) * Vancomycin 1g Q12h (added 06/06) 06/06-06/10 Vancomycin. discontinued. Diarrhea * 06/14: C diff toxin negative, repeat C diff tomorrow 06/15 * Monitor BM * Flagyl 500 mg IV Q8H Hypertension * Aspirin 81mg PO daily * Cozaar 50mg PO daily Diabetes * Accuchecks QAC and HS * A1C 9.1 * Diabetic clear liquids * Lantus 13 units SC HS * Insulin regular 4 units TID with meals Constipation * Colace 100mg PO BID * Simethacone for gas Cough * CXR: negative for disease * Mucinex 600mg PRN * 06/09 flu a/b negative * 06/12 CXR: * Promethazine/codeine 5cc POQ4 PRN for cough/sore throat Cystic Mass Lower uterine segment & Cervix * 06/10 Transvaginal US/Pelvis s/p hysterectomy bilateral oopherectomy * 06/02 CT abdomen/pelvis:low attenuation of cystic mass lesion changes in lower uterine segment and uterine cervix, [id number] bladder wall thickening, decreased enhancement at right renal cortex consistent with pyelonephritis. blurry vision * Ophthalmology consult: Dr. Oleksandr Sinclair, left message at office 06/13 Prophylaxis * Heparin 5000 units SC 8hours for DVT ppx * Pepcid 20mg PO daily for GI ppx * PT/OT eval * Florastor 250mg PO * Zofran <Katy Gaspar V - Last Filed: 06/15/17 12:14> Objective - Vital Signs/Intake and Output Vital Signs (last 24 hours): Temp Pulse Resp BP Pulse Ox 97.7 F 71 20 139/82 97 06/15/17 07:47 06/15/17 07:47 06/15/17 07:47 06/15/17 07:47 06/15/17 07:47 - Medications Medications: Current Medications Acetaminophen (Tylenol 325mg Tab) 650 mg PO Q6 PRN PRN Reason: Pain, moderate (4-7) Last Admin: 06/15/17 09:33 Dose: 650 mg Aspirin (Ecotrin) 81 mg PO DAILY [facility] Last Admin: 06/15/17 09:29 Dose: 81 mg Dextrose (Dextrose 50% Inj) 0 ml IV STAT PRN; Protocol PRN Reason: Hyglycemia Protocol Dextrose (Glutose 15) 0 gm PO ONCE PRN; Protocol PRN Reason: Hypoglycemia Protocol Famotidine (Pepcid) 20 mg PO DAILY [facility] Last Admin: 06/15/17 09:30 Dose: 20 mg Glucagon (Glucagen Diagnostic Kit) 0 mg IM STAT PRN; Protocol PRN Reason: Hypoglycemia Protocol Guaifenesin (Mucinex La) 600 mg PO BID PRN PRN Reason: Cough Last Admin: 06/15/17 09:22 Dose: 600 mg Metronidazole (Flagyl) 500 mg in 100 mls @ 100 mls/hr IVPB Q8H [facility] Last Admin: 06/14/17 23:59 Dose: 100 mls/hr Dextrose (Dextrose 5% In Water 1000 Ml) 1,000 mls @ 0 mls/hr IV .Q0M PRN; Protocol; Per Protocol PRN Reason: Hypoglycemia Protocol Insulin Glargine (Lantus) 13 unit SC HS [facility] Last Admin: 06/14/17 21:27 Dose: 13 unit Insulin Human Regular (Novolin R) 4 unit SC TIDAC [facility] Last Admin: 06/15/17 07:30 Dose: 4 unit Losartan Potassium (Cozaar) 50 mg PO DAILY [facility] Last Admin: 06/15/17 09:29 Dose: 50 mg Ondansetron HCl (Zofran Inj) 4 mg IVP Q6H PRN PRN Reason: Nausea/Vomiting Last Admin: 06/05/17 16:52 Dose: 4 mg Promethazine HCl/Codeine (Phenergan/Codeine Oral Syrup) 5 ml PO Q4 PRN PRN Reason: Cough Last Admin: 06/15/17 09:00 Dose: 5 ml Saccharomyces Boulardii (Florastor) 250 mg PO BID [facility] Last Admin: 06/15/17 09:22 Dose: 250 mg Simethicone (Mylicon Chew Tab) 80 mg PO BID PRN PRN Reason: GI distress Last Admin: 06/14/17 17:11 Dose: 80 mg Vancomycin HCl (Vancocin (Oral Or Rectal Use)) 125 mg PO QID [facility] - Labs Labs: 06/14/17 11:49 06/14/17 11:49 Attending/Attestation - Attestation I have personally seen and examined this patient.: Yes I have fully participated in the care of the patient.: Yes I have reviewed all pertinent clinical information, including history, physical exam and plan: Yes Notes (Text): This is late computer entry for 06/14/17. Patient seen, examined, and case discussed with day-time resident. Patient seen during rounds with daughter at bedside this morning. Nursing reports she has had 4-5 watery bowel movements this morning. Patient was to finish last day of IV abx for ESBL. Patient's C.dif ordered which was negative but suspicion high for C. Dif. Patient started on Flagyl 500mg IV Q8H. Will monitor to see if bowel movements improve or not. Patient reports breathing is better. Discharge held secondary for suspicion for C. Dif diarrhea. Assessment/Plan 1) Diarrhea * ordered for C. DIFF 06/14 first one: negative; ordered for second C. dif: pending * Flagyl 500 mg IV Q8H started 06/14/17 to start treatment for C. Dif * Patient reports 4-5 loose bowel movements this morning 2) Pyelonephritis; ESBL+ UTI-->resolved * ID Consult: Dr. Jain on board help appreciated * Blood cultures (06/01/17): negative * Urine culture * ESBL (06/01 E. coli; 06/04 Enterococcus faecium) * 06/08 Urine culture - no growth * Contact precautions removed for ESBL+ UTI * CT Abdomen/Pelvis (06/02/17): moderate size focal are of heterogenous decreased enhancement of the right renal cortex consistent with pyelonephritis. mild bilateral hydronephrosis and hydroureter. Low attentuation cystic mass at the lower uterine segment and uterine cervix new. Mild to moderate urinary bladder wall thickening suspicious for cystitis. * Primaxin 500 IV Q8H (completed ten day course per ID, on 06/14/17) * Vancomycin 1g Q12h (added 06/06) 06/06-06/10 COMPLETED COURSE 3) Hypertension--Controlled * Aspirin 81mg PO daily * Cozaar 50mg PO daily * monitor vitals 4) Diabetes-->uncontrolled * Accuchecks QAC and HS * A1C 9.1 * Diabetic clear liquids * Lantus 13 units SC HS * Insulin regular 4 units TID with meals * Hypoglycemic protocol ordered 5) Bronchitis * CXR: negative for disease * Mucinex 600mg PRN * 06/09 flu a/b negative * 06/12 CXR: right hilar prominence. Mild interstitial prominence may reflect infection or edema * Promethazine/codeine 5cc POQ4 PRN for cough/sore throat 6) Cystic Mass Lower uterine segment & Cervix (seen on CT abdomen) * 06/02 CT abdomen/pelvis:low attenuation of cystic mass lesion changes in lower uterine segment and uterine cervix, [id number] bladder wall thickening, decreased enhancement at right renal cortex consistent with pyelonephritis. * 06/10 Transvaginal US/Pelvis s/p hysterectomy bilateral oopherectomy; no gross abnormality identified in the pelvis. * Patient is not having post-menopausal bleeding . 7) Blurry vision * Ophthalmology consult: Dr. Oleksandr Sinclair, resident eft message at office 06/13 * Patient reports she has not seen a eye doctor in quite some time, report blurry vision improves with glasses, and has not had diabetic eye exam screening ; has watery eye over the right but does not appear to have conjunctivitis * Awaiting recommendations 8) Prophylaxis * Heparin 5000 units SC 8hours for DVT ppx * Pepcid 20mg PO daily for GI ppx * PT/OT eval * Florastor 250mg PO * Zofran 4mg IV Q 6hour PRN nausea
[2017-06-14] MEDS ORDERED: metroNIDAZOLE IV 500 mg/100 ml 500 MG/100 ML BAG IVPB SCH (14:00)
[2017-06-14] MEDS: metroNIDAZOLE IV 500 mg/100 ml 500 MG/100 ML BAG IVPB SCH ×2 (16:30→23:59)
[2017-06-14] MEDS ORDERED: Dextrose 50% SYRINGE Inj (50 ml) IV PRN (18:19)
[2017-06-14] MEDS ORDERED: Glucagon Recombinant 1 mg Inj IM PRN (18:19)
[2017-06-14] MEDS: (Lantus) Insulin Glargine, Recombinant SC SCH (21:27)
[2017-06-15] MEDS: (Novolin R) Insulin Human Regular 100 units/ml vial SC SCH ×3 (07:30→16:30)
[2017-06-15] MEDS: metroNIDAZOLE IV 500 mg/100 ml 500 MG/100 ML BAG IVPB SCH ×3 (08:00→23:47)
--- NOTE | 2017-06-15 08:49 | CP.PCM.PN ---
Objective - Vital Signs/Intake and Output Vital Signs (last 24 hours): Temp Pulse Resp BP Pulse Ox 97.7 F 71 20 139/82 97 06/15/17 07:47 06/15/17 07:47 06/15/17 07:47 06/15/17 07:47 06/15/17 07:47 - Medications Medications: Current Medications Acetaminophen (Tylenol 325mg Tab) 650 mg PO Q6 PRN PRN Reason: Pain, moderate (4-7) Last Admin: 06/09/17 07:56 Dose: 650 mg Aspirin (Ecotrin) 81 mg PO DAILY [facility] Last Admin: 06/14/17 11:13 Dose: 81 mg Bisacodyl (Dulcolax) 5 mg PO DAILY [facility] Last Admin: 06/14/17 11:14 Dose: Not Given Dextrose (Dextrose 50% Inj) 0 ml IV STAT PRN; Protocol PRN Reason: Hyglycemia Protocol Dextrose (Glutose 15) 0 gm PO ONCE PRN; Protocol PRN Reason: Hypoglycemia Protocol Docusate Sodium (Colace) 100 mg PO BID [facility] Last Admin: 06/14/17 17:09 Dose: Not Given Famotidine (Pepcid) 20 mg PO DAILY [facility] Last Admin: 06/14/17 11:13 Dose: 20 mg Glucagon (Glucagen Diagnostic Kit) 0 mg IM STAT PRN; Protocol PRN Reason: Hypoglycemia Protocol Guaifenesin (Mucinex La) 600 mg PO BID PRN PRN Reason: Cough Last Admin: 06/09/17 10:15 Dose: 600 mg Metronidazole (Flagyl) 500 mg in 100 mls @ 100 mls/hr IVPB Q8H [facility] Last Admin: 06/14/17 23:59 Dose: 100 mls/hr Dextrose (Dextrose 5% In Water 1000 Ml) 1,000 mls @ 0 mls/hr IV .Q0M PRN; Protocol; Per Protocol PRN Reason: Hypoglycemia Protocol Insulin Glargine (Lantus) 13 unit SC HS [facility] Last Admin: 06/14/17 21:27 Dose: 13 unit Insulin Human Regular (Novolin R) 4 unit SC TIDAC [facility] Last Admin: 06/14/17 17:08 Dose: 4 unit Losartan Potassium (Cozaar) 50 mg PO DAILY [facility] Last Admin: 06/14/17 11:13 Dose: 50 mg Ondansetron HCl (Zofran Inj) 4 mg IVP Q6H PRN PRN Reason: Nausea/Vomiting Last Admin: 06/05/17 16:52 Dose: 4 mg Promethazine HCl/Codeine (Phenergan/Codeine Oral Syrup) 5 ml PO Q4 PRN PRN Reason: Cough Last Admin: 06/13/17 13:10 Dose: 5 ml Saccharomyces Boulardii (Florastor) 250 mg PO BID [facility] Last Admin: 06/14/17 17:17 Dose: 250 mg Simethicone (Mylicon Chew Tab) 80 mg PO BID PRN PRN Reason: GI distress Last Admin: 06/14/17 17:11 Dose: 80 mg - Labs Labs: 06/14/17 11:49 06/14/17 11:49
[2017-06-15] MEDS: Promethazine/Cod 6.25mg-10mg/5ml Syr UD PO PRN (09:00)
[2017-06-15] MEDS: Saccharomyces Boulardi 250 mg Cap PO SCH ×2 (09:22→18:00)
[2017-06-15] MEDS: guaiFENesin 600 mg ER Tab PO PRN (09:22)
[2017-06-15] MEDS: Bisacodyl 5mg EC Tab PO SCH (09:30)
[2017-06-15] MEDS: Vancomycin 125 MG/5 ML SOLN (ORAL/RECTAL) PO SCH ×4 (10:00→22:14)
--- NOTE | 2017-06-15 10:03 | CP.PCM.PN ---
<Maria Elena Casillas - Last Filed: 06/15/17 10:00> Subjective - Date & Time of Evaluation Date of Evaluation: 06/15/17 Time of Evaluation: 08:00 - Subjective Subjective: Medicine Note for Dr. Gaspar Patient was seen and examined at bedside. Patient reported multiple loose stools , nonbloody. Denied fever, chills, headache, SOB, chest pain, n/v/c/, or urinary symptoms. Objective - Vital Signs/Intake and Output Vital Signs (last 24 hours): Temp Pulse Resp BP Pulse Ox 97.7 F 71 20 139/82 97 06/15/17 07:47 06/15/17 07:47 06/15/17 07:47 06/15/17 07:47 06/15/17 07:47 - Medications Medications: Current Medications Acetaminophen (Tylenol 325mg Tab) 650 mg PO Q6 PRN PRN Reason: Pain, moderate (4-7) Last Admin: 06/15/17 09:33 Dose: 650 mg Aspirin (Ecotrin) 81 mg PO DAILY [facility] Last Admin: 06/15/17 09:29 Dose: 81 mg Bisacodyl (Dulcolax) 5 mg PO DAILY [facility] Last Admin: 06/15/17 09:30 Dose: 5 mg Dextrose (Dextrose 50% Inj) 0 ml IV STAT PRN; Protocol PRN Reason: Hyglycemia Protocol Dextrose (Glutose 15) 0 gm PO ONCE PRN; Protocol PRN Reason: Hypoglycemia Protocol Docusate Sodium (Colace) 100 mg PO BID [facility] Last Admin: 06/15/17 09:30 Dose: 100 mg Famotidine (Pepcid) 20 mg PO DAILY [facility] Last Admin: 06/15/17 09:30 Dose: 20 mg Glucagon (Glucagen Diagnostic Kit) 0 mg IM STAT PRN; Protocol PRN Reason: Hypoglycemia Protocol Guaifenesin (Mucinex La) 600 mg PO BID PRN PRN Reason: Cough Last Admin: 06/15/17 09:22 Dose: 600 mg Metronidazole (Flagyl) 500 mg in 100 mls @ 100 mls/hr IVPB Q8H [facility] Last Admin: 06/14/17 23:59 Dose: 100 mls/hr Dextrose (Dextrose 5% In Water 1000 Ml) 1,000 mls @ 0 mls/hr IV .Q0M PRN; Protocol; Per Protocol PRN Reason: Hypoglycemia Protocol Insulin Glargine (Lantus) 13 unit SC HS [facility] Last Admin: 06/14/17 21:27 Dose: 13 unit Insulin Human Regular (Novolin R) 4 unit SC TIDAC [facility] Last Admin: 06/15/17 07:30 Dose: 4 unit Losartan Potassium (Cozaar) 50 mg PO DAILY [facility] Last Admin: 06/15/17 09:29 Dose: 50 mg Ondansetron HCl (Zofran Inj) 4 mg IVP Q6H PRN PRN Reason: Nausea/Vomiting Last Admin: 06/05/17 16:52 Dose: 4 mg Promethazine HCl/Codeine (Phenergan/Codeine Oral Syrup) 5 ml PO Q4 PRN PRN Reason: Cough Last Admin: 06/15/17 09:00 Dose: 5 ml Saccharomyces Boulardii (Florastor) 250 mg PO BID [facility] Last Admin: 06/15/17 09:22 Dose: 250 mg Simethicone (Mylicon Chew Tab) 80 mg PO BID PRN PRN Reason: GI distress Last Admin: 06/14/17 17:11 Dose: 80 mg Vancomycin HCl (Vancocin (Oral Or Rectal Use)) 125 mg PO QID [facility] - Labs Labs: 06/14/17 11:49 06/14/17 11:49 - Additional Findings Additional findings: - Constitutional Appears: Non-toxic - Head Exam Head Exam: NORMAL INSPECTION - Eye Exam Eye Exam: EOMI, Normal appearance - ENT Exam ENT Exam: Mucous Membranes Moist - Neck Exam Neck Exam: Full ROM. absent: Tenderness - Respiratory Exam Respiratory Exam: NORMAL BREATHING PATTERN. absent: Accessory Muscle Use, Respiratory Distress - Cardiovascular Exam Cardiovascular Exam: Tachycardia, REGULAR RHYTHM. absent: Bradycardia - GI/Abdominal Exam GI & Abdominal Exam: Soft. absent: Tenderness - Extremities Exam Extremities Exam: Full ROM. absent: Pedal Edema - Psychiatric Exam Psychiatric exam: Normal Affect, Normal Mood - Skin Skin Exam: Dry, Intact, Normal Color, Warm Assessment and Plan - Assessment and Plan (Free Text) Assessment: 71F ESBL positive pylenephritis, resolving. urine culture negative. PMH: HTN, DM. Plan: Diarrhea * + C. DIFF 06/14 * 06/13: C diff toxin negative, repeat C diff +, will order repeat tomorrow * Contact isolation * Flagyl 500 mg IV Q8H started 06/14/17 * Vancomycin 125mg PO QID started 06/15/17 Pyelonephritis * ID Consult: Dr. Jain * Blood cultures: negative * Urine culture * ESBL (06/01 E. coli; 06/04 Enterococcus faecium) * 06/08 Urine culture - no growth * Contact precautions removed * CT Abdomen/Pelvis * Evidence of Pyelo with no abscess * Evidence of cystitis * Cystic mass lesion in lower uterine segment - will need follow up as outpatient * Primaxin 500 IV Q8, three more days of Primaxin COMPLETED COURSE * Vancomycin 1g Q12h (added 06/06) 06/06-06/10 COMPLETED COURSE Hypertension * Aspirin 81mg PO daily * Cozaar 50mg PO daily Diabetes * Accuchecks QAC and HS * A1C 9.1 * Diabetic clear liquids * Lantus 13 units SC HS * Insulin regular 4 units TID with meals Cough * CXR: negative for disease * Mucinex 600mg PRN * 06/09 flu a/b negative * 06/12 CXR: * Promethazine/codeine 5cc POQ4 PRN for cough/sore throat Cystic Mass Lower uterine segment & Cervix * 06/10 Transvaginal US/Pelvis s/p hysterectomy bilateral oopherectomy * 06/02 CT abdomen/pelvis:low attenuation of cystic mass lesion changes in lower uterine segment and uterine cervix, [id number] bladder wall thickening, decreased enhancement at right renal cortex consistent with pyelonephritis. Blurry vision * Ophthalmology consult: Dr. Oleksandr Sinclair, left message at office 06/13 Prophylaxis * Heparin 5000 units SC 8hours for DVT ppx * Pepcid 20mg PO daily for GI ppx * PT/OT eval * Florastor 250mg PO * JASON Contreras Dr. DO PGY1 <Katy Gaspar V - Last Filed: 06/15/17 12:08> Objective - Vital Signs/Intake and Output Vital Signs (last 24 hours): Temp Pulse Resp BP Pulse Ox 97.7 F 71 20 139/82 97 06/15/17 07:47 06/15/17 07:47 06/15/17 07:47 06/15/17 07:47 06/15/17 07:47 - Medications Medications: Current Medications Acetaminophen (Tylenol 325mg Tab) 650 mg PO Q6 PRN PRN Reason: Pain, moderate (4-7) Last Admin: 06/15/17 09:33 Dose: 650 mg Aspirin (Ecotrin) 81 mg PO DAILY [facility] Last Admin: 06/15/17 09:29 Dose: 81 mg Dextrose (Dextrose 50% Inj) 0 ml IV STAT PRN; Protocol PRN Reason: Hyglycemia Protocol Dextrose (Glutose 15) 0 gm PO ONCE PRN; Protocol PRN Reason: Hypoglycemia Protocol Famotidine (Pepcid) 20 mg PO DAILY [facility] Last Admin: 06/15/17 09:30 Dose: 20 mg Glucagon (Glucagen Diagnostic Kit) 0 mg IM STAT PRN; Protocol PRN Reason: Hypoglycemia Protocol Guaifenesin (Mucinex La) 600 mg PO BID PRN PRN Reason: Cough Last Admin: 06/15/17 09:22 Dose: 600 mg Metronidazole (Flagyl) 500 mg in 100 mls @ 100 mls/hr IVPB Q8H [facility] Last Admin: 06/14/17 23:59 Dose: 100 mls/hr Dextrose (Dextrose 5% In Water 1000 Ml) 1,000 mls @ 0 mls/hr IV .Q0M PRN; Protocol; Per Protocol PRN Reason: Hypoglycemia Protocol Insulin Glargine (Lantus) 13 unit SC HS [facility] Last Admin: 06/14/17 21:27 Dose: 13 unit Insulin Human Regular (Novolin R) 4 unit SC TIDAC [facility] Last Admin: 06/15/17 07:30 Dose: 4 unit Losartan Potassium (Cozaar) 50 mg PO DAILY [facility] Last Admin: 06/15/17 09:29 Dose: 50 mg Ondansetron HCl (Zofran Inj) 4 mg IVP Q6H PRN PRN Reason: Nausea/Vomiting Last Admin: 06/05/17 16:52 Dose: 4 mg Promethazine HCl/Codeine (Phenergan/Codeine Oral Syrup) 5 ml PO Q4 PRN PRN Reason: Cough Last Admin: 06/15/17 09:00 Dose: 5 ml Saccharomyces Boulardii (Florastor) 250 mg PO BID [facility] Last Admin: 06/15/17 09:22 Dose: 250 mg Simethicone (Mylicon Chew Tab) 80 mg PO BID PRN PRN Reason: GI distress Last Admin: 06/14/17 17:11 Dose: 80 mg Vancomycin HCl (Vancocin (Oral Or Rectal Use)) 125 mg PO QID [facility] - Labs Labs: 06/14/17 11:49 06/14/17 11:49 Attending/Attestation - Attestation I have personally seen and examined this patient.: Yes I have fully participated in the care of the patient.: Yes I have reviewed all pertinent clinical information, including history, physical exam and plan: Yes Notes (Text): Patient seen, examined and case discussed with day-time resident. Patient transferred to contact isolation in light of positive C. Dif+. Patient started on IV flagyl yesterday and PO vancomycin today. [employer], [id number] Name: Dalia in [facility], discussed with patient at bedside. Patient denies headache, denies chest pain, denies shortness of breathe , denies throat pain, reports abdominal distension pain over right lower quadrant, denies nausea, reports diarrhea improved to 2 more formed bowel movements. Patient is very eager to go home. Explained to the patient because she was on IV abx for her urinary tract infection, it predisposed her to infectious diarrhea. Advised her next time she has a bowel movement to let the nurse know. Patient is pending repeat C. Dif for today and tomorrow. Patient is ordered for Ct abdomen/pelvis PO and iv contrast-->for abdominal distension. Low suspicion for megacolon. Clinically stable and not in acute distress. Assessment/Plan 1) C dif associated diarrhea * + C. DIFF 06/14-->ordered for repeat today and tomorrow * Ordered for CT abdomen/pelvis PO and IV contrast reason: abdominal distension and positive C. Dif * Contact isolation * Flagyl 500 mg IV Q8H started 06/14/17 * Vancomycin 125mg PO QID started 06/15/17 2) Pyelonephritis; ESBL+ UTI-->resolved * ID Consult: Dr. Jain on board help appreciated * Blood cultures (06/01/17): negative * Urine culture * ESBL (06/01 E. coli; 06/04 Enterococcus faecium) * 06/08 Urine culture - no growth * Contact precautions removed for ESBL+ UTI-->restart for positive C. Dif+ * CT Abdomen/Pelvis (06/02/17): moderate size focal are of heterogenous decreased enhancement of the right renal cortex consistent with pyelonephritis. mild bilateral hydronephrosis and hydroureter. Low attentuation cystic mass at the lower uterine segment and uterine cervix new. Mild to moderate urinary bladder wall thickening suspicious for cystitis. * Primaxin 500 IV Q8H (completed ten day course per ID, on 06/14/17) * Vancomycin 1g Q12h (added 06/06) 06/06-06/10 COMPLETED COURSE 3) Hypertension--Controlled * Aspirin 81mg PO daily * Cozaar 50mg PO daily * monitor vitals 4) Diabetes-->uncontrolled * Accuchecks QAC and HS * A1C 9.1 * Diabetic clear liquids * Lantus 13 units SC HS * Insulin regular 4 units TID with meals * Hypoglycemic protocol ordered 5) Bronchitis * CXR: negative for disease * Mucinex 600mg PRN * 06/09 flu a/b negative * 06/12 CXR: right hilar prominence. Mild interstitial prominence may reflect infection or edema * Promethazine/codeine 5cc POQ4 PRN for cough/sore throat 6) Cystic Mass Lower uterine segment & Cervix (seen on CT abdomen) * 06/02 CT abdomen/pelvis:low attenuation of cystic mass lesion changes in lower uterine segment and uterine cervix, [id number] bladder wall thickening, decreased enhancement at right renal cortex consistent with pyelonephritis. * 06/10 Transvaginal US/Pelvis s/p hysterectomy bilateral oopherectomy; no gross abnormality identified in the pelvis. * Patient is not having post-menopausal bleeding 7) Blurry vision * Ophthalmology consult: Dr. Oleksandr Sinclair, resident eft message at office 06/13 * Patient reports she has not seen a eye doctor in quite some time, report blurry vision improves with glasses, and has not had diabetic eye exam screening 8) Prophylaxis * Heparin 5000 units SC 8hours for DVT ppx * Pepcid 20mg PO daily for GI ppx * PT/OT eval * Florastor 250mg PO * Zofran 4mg IV Q 6hour PRN nausea * Contact isolation
[2017-06-15] MEDS ORDERED: Iohexol 240 (50 ml) PO ONE ×2 (14:15→16:00)
[2017-06-15 14:55] LABS: BASO # 0.1 K/uL (0.0-0.2); BASO % 0.6 % (0.0-2.0); EOS # 0.3 K/uL (0.0-0.7); HEMATOCRIT 39.4 % (34.0-47.0); LYMPH # 3.1 K/uL (1.0-4.3); LYMPH % 31.2 % (20.0-40.0); MEAN CELL VOLUME 85.1 fL (81.0-99.0); MEAN CORPUSCULAR HEMOGLOBIN 28.7 pg (27.0-31.0); MEAN CORPUSCULAR HGB CONC 33.7 g/dL (33.0-37.0); MEAN PLATELET VOLUME 7.5 fL (7.2-11.7); MONO # 0.7 K/uL (0.0-0.8); MONO % 7.5 % (0.0-10.0); RED CELL DISTRIBUTION WIDTH 14.4 % (11.5-14.5); WHITE BLOOD COUNT 9.9 K/uL (4.8-10.8)
[2017-06-15 15:01] LABS: CHLORIDE 99 mmol/L (98-107)
[2017-06-15 15:02] LABS: SODIUM 137 mmol/L (132-148)
[2017-06-15 15:03] LABS: POTASSIUM 4.6 mmol/L (3.6-5.2)
[2017-06-15 15:05] LABS: ALKALINE PHOSPHATASE 99 U/L (38-126); ALT/SGPT 28 U/L (9-52); AST/SGOT 23 U/L (14-36); BILIRUBIN,TOTAL 0.6 mg/dL (0.2-1.3); BLOOD UREA NITROGEN 14 mg/dL (7-17); CARBON DIOXIDE 24 mmol/L (22-30); GFR AFRICAN-AMERICAN > 60; GLUCOSE,RANDOM 260 mg/dL (65-105); PHOSPHOROUS 4.3 mg/dL (2.5-4.5); TOTAL PROTEIN 7.8 g/dL (6.3-8.3)
[2017-06-15 15:06] LABS: CALCIUM 9.5 mg/dl (8.6-10.4); MAGNESIUM 1.7 mg/dL (1.6-2.3)
[2017-06-15] MEDS ORDERED: Iodixanol 320 MG/ML 100 ML BOTTLE IV ONE (21:09)
[2017-06-15] MEDS: (Lantus) Insulin Glargine, Recombinant SC SCH (22:12)
--- NOTE | 2017-06-16 08:22 | CP.PCM.PN ---
<Katy Gaspar V - Last Filed: 06/16/17 11:02> Objective - Vital Signs/Intake and Output Vital Signs (last 24 hours): Temp Pulse Resp BP Pulse Ox 97.6 F 77 20 145/89 95 06/16/17 08:00 06/16/17 08:00 06/16/17 08:00 06/16/17 08:00 06/16/17 08:00 Intake and Output: 06/16/17 06/16/17 06:59 18:59 Intake Total 300 Balance 300 - Medications Medications: Current Medications Acetaminophen (Tylenol 325mg Tab) 650 mg PO Q6 PRN PRN Reason: Pain, moderate (4-7) Last Admin: 06/15/17 09:33 Dose: 650 mg Aspirin (Ecotrin) 81 mg PO DAILY [facility] Last Admin: 06/16/17 09:36 Dose: 81 mg Dextrose (Dextrose 50% Inj) 0 ml IV STAT PRN; Protocol PRN Reason: Hyglycemia Protocol Dextrose (Glutose 15) 0 gm PO ONCE PRN; Protocol PRN Reason: Hypoglycemia Protocol Famotidine (Pepcid) 20 mg PO DAILY [facility] Last Admin: 06/16/17 09:36 Dose: 20 mg Glucagon (Glucagen Diagnostic Kit) 0 mg IM STAT PRN; Protocol PRN Reason: Hypoglycemia Protocol Guaifenesin (Mucinex La) 600 mg PO BID PRN PRN Reason: Cough Last Admin: 06/15/17 09:22 Dose: 600 mg Metronidazole (Flagyl) 500 mg in 100 mls @ 100 mls/hr IVPB Q8H [facility] Last Admin: 06/16/17 08:35 Dose: 100 mls/hr Dextrose (Dextrose 5% In Water 1000 Ml) 1,000 mls @ 0 mls/hr IV .Q0M PRN; Protocol; Per Protocol PRN Reason: Hypoglycemia Protocol Insulin Glargine (Lantus) 13 unit SC HS [facility] Last Admin: 06/15/17 22:12 Dose: 13 unit Insulin Human Regular (Novolin R) 4 unit SC TIDAC [facility] Last Admin: 06/16/17 08:30 Dose: 4 unit Losartan Potassium (Cozaar) 50 mg PO DAILY [facility] Last Admin: 06/16/17 09:36 Dose: 50 mg Ondansetron HCl (Zofran Inj) 4 mg IVP Q6H PRN PRN Reason: Nausea/Vomiting Last Admin: 06/05/17 16:52 Dose: 4 mg Promethazine HCl/Codeine (Phenergan/Codeine Oral Syrup) 5 ml PO Q4 PRN PRN Reason: Cough Last Admin: 06/15/17 09:00 Dose: 5 ml Saccharomyces Boulardii (Florastor) 250 mg PO BID [facility] Last Admin: 06/16/17 09:36 Dose: 250 mg Simethicone (Mylicon Chew Tab) 80 mg PO BID PRN PRN Reason: GI distress Last Admin: 06/14/17 17:11 Dose: 80 mg Vancomycin HCl (Vancocin (Oral Or Rectal Use)) 125 mg PO QID [facility] Last Admin: 06/16/17 09:35 Dose: 125 mg - Labs Labs: 06/16/17 09:05 06/16/17 09:05 Attending/Attestation - Attestation I have personally seen and examined this patient.: Yes I have fully participated in the care of the patient.: Yes I have reviewed all pertinent clinical information, including history, physical exam and plan: Yes Notes (Text): Patient seen, examined and case discussed with day-time resident. Patient transferred to contact isolation in light of positive C. Dif+ two days ago. Patient started on IV flagyl two days ago and PO vancomycin yesterday. Artie Powder Expert, [id number] Name: Selina in [facility], discussed with patient with daughter at bedside. Patient denies headache, denies chest pain, denies shortness of breathe, denies throat pain, reports abdominal pain has improved, denies nausea, reports diarrhea has resolved. Patient is very eager to go home. Spoke with patient's nurseLencho awaiting for stool to occur. Spoke with daughter and patient at bedside awaiting negative C. dif in light of prior +. Patient symptoms have improved. Will discuss with infectious disease. Awaiting offical report Ct abdomen/pelvis PO and iv contrast-->for abdominal distension. Low suspicion for megacolon. Clinically stable and not in acute distress. Spoke with pharmacy; there is shortage of IV Flagyl-->switched patient to PO flagyl. Assessment/Plan 1) C dif associated diarrhea * + C. DIFF 06/14-->ordered for repeat-->pending * Ordered for CT abdomen/pelvis PO and IV contrast reason: abdominal distension and positive C. Dif-->Awaiting official report * Contact isolation * Flagyl 500 mg IV Q8H started 06/14/17 * Vancomycin 125mg PO QID started 06/15/17 2) Pyelonephritis; ESBL+ UTI-->resolved * ID Consult: Dr. Jain on board help appreciated * Blood cultures (06/01/17): negative * Urine culture * ESBL (06/01 E. coli; 06/04 Enterococcus faecium) * 06/08 Urine culture - no growth * Contact precautions removed for ESBL+ UTI-->restart for positive C. Dif+ * CT Abdomen/Pelvis (06/02/17): moderate size focal are of heterogenous decreased enhancement of the right renal cortex consistent with pyelonephritis. mild bilateral hydronephrosis and hydroureter. Low attentuation cystic mass at the lower uterine segment and uterine cervix new. Mild to moderate urinary bladder wall thickening suspicious for cystitis. * Primaxin 500 IV Q8H (completed ten day course per ID, on 06/14/17) * Vancomycin 1g Q12h (added 06/06) 06/06-06/10 COMPLETED COURSE 3) Hypertension--Controlled * Aspirin 81mg PO daily * Cozaar 50mg PO daily * monitor vitals 4) Diabetes-->uncontrolled * Accuchecks QAC and HS * A1C 9.1 * Diabetic clear liquids * Lantus 13 units SC HS * Insulin regular 4 units TID with meals * Hypoglycemic protocol ordered 5) Bronchitis * CXR: negative for disease * Mucinex 600mg PRN * 06/09 flu a/b negative * 06/12 CXR: right hilar prominence. Mild interstitial prominence may reflect infection or edema * Promethazine/codeine 5cc POQ4 PRN for cough/sore throat 6) Cystic Mass Lower uterine segment & Cervix (seen on CT abdomen) * 06/02 CT abdomen/pelvis:low attenuation of cystic mass lesion changes in lower uterine segment and uterine cervix, [id number] bladder wall thickening, decreased enhancement at right renal cortex consistent with pyelonephritis. * 06/10 Transvaginal US/Pelvis s/p hysterectomy bilateral oopherectomy; no gross abnormality identified in the pelvis. * Patient is not having post-menopausal bleeding 7) Blurry vision * Ophthalmology consult: Dr. Oleksandr Sinclair, resident eft message at office 06/13 * Patient reports she has not seen a eye doctor in quite some time, report blurry vision improves with glasses, and has not had diabetic eye exam screening 8) Prophylaxis * Heparin 5000 units SC 8hours for DVT ppx * Pepcid 20mg PO daily for GI ppx * PT/OT eval * Florastor 250mg PO * Zofran 4mg IV Q 6hour PRN nausea * Contact isolation <VinnyMaria Elena - Last Filed: 06/16/17 14:20> Subjective - Date & Time of Evaluation Date of Evaluation: 06/16/17 Time of Evaluation: 08:00 - Subjective Subjective: Medicine Note for Dr. Gaspar Patient was seen and examined at bedside. Patient has no acute complaints. Denied fever, chills, headache, SOB, chest pain, n/v/c/, or urinary symptoms. Objective - Vital Signs/Intake and Output Vital Signs (last 24 hours): Temp Pulse Resp BP Pulse Ox 97.6 F 77 20 145/89 95 06/16/17 08:00 06/16/17 08:00 06/16/17 08:00 06/16/17 08:00 06/16/17 08:00 Intake and Output: 06/16/17 06/16/17 06:59 18:59 Intake Total 300 Balance 300 - Medications Medications: Current Medications Acetaminophen (Tylenol 325mg Tab) 650 mg PO Q6 PRN PRN Reason: Pain, moderate (4-7) Last Admin: 06/15/17 09:33 Dose: 650 mg Aspirin (Ecotrin) 81 mg PO DAILY [facility] Last Admin: 06/15/17 09:29 Dose: 81 mg Dextrose (Dextrose 50% Inj) 0 ml IV STAT PRN; Protocol PRN Reason: Hyglycemia Protocol Dextrose (Glutose 15) 0 gm PO ONCE PRN; Protocol PRN Reason: Hypoglycemia Protocol Famotidine (Pepcid) 20 mg PO DAILY [facility] Last Admin: 06/15/17 09:30 Dose: 20 mg Glucagon (Glucagen Diagnostic Kit) 0 mg IM STAT PRN; Protocol PRN Reason: Hypoglycemia Protocol Guaifenesin (Mucinex La) 600 mg PO BID PRN PRN Reason: Cough Last Admin: 06/15/17 09:22 Dose: 600 mg Metronidazole (Flagyl) 500 mg in 100 mls @ 100 mls/hr IVPB Q8H [facility] Last Admin: 06/15/17 23:47 Dose: 100 mls/hr Dextrose (Dextrose 5% In Water 1000 Ml) 1,000 mls @ 0 mls/hr IV .Q0M PRN; Protocol; Per Protocol PRN Reason: Hypoglycemia Protocol Insulin Glargine (Lantus) 13 unit SC HS [facility] Last Admin: 06/15/17 22:12 Dose: 13 unit Insulin Human Regular (Novolin R) 4 unit SC TIDAC [facility] Last Admin: 06/15/17 16:30 Dose: 4 unit Losartan Potassium (Cozaar) 50 mg PO DAILY [facility] Last Admin: 06/15/17 09:29 Dose: 50 mg Ondansetron HCl (Zofran Inj) 4 mg IVP Q6H PRN PRN Reason: Nausea/Vomiting Last Admin: 06/05/17 16:52 Dose: 4 mg Promethazine HCl/Codeine (Phenergan/Codeine Oral Syrup) 5 ml PO Q4 PRN PRN Reason: Cough Last Admin: 06/15/17 09:00 Dose: 5 ml Saccharomyces Boulardii (Florastor) 250 mg PO BID [facility] Last Admin: 06/15/17 18:00 Dose: 250 mg Simethicone (Mylicon Chew Tab) 80 mg PO BID PRN PRN Reason: GI distress Last Admin: 06/14/17 17:11 Dose: 80 mg Vancomycin HCl (Vancocin (Oral Or Rectal Use)) 125 mg PO QID [facility] Last Admin: 06/15/17 22:14 Dose: 125 mg - Labs Labs: 06/15/17 14:43 06/15/17 14:43 - Additional Findings Additional findings: - Additional Findings Additional findings: - Constitutional Appears: Non-toxic - Head Exam Head Exam: NORMAL INSPECTION - Eye Exam Eye Exam: EOMI, Normal appearance - ENT Exam ENT Exam: Mucous Membranes Moist - Neck Exam Neck Exam: Full ROM. absent: Tenderness - Respiratory Exam Respiratory Exam: NORMAL BREATHING PATTERN. absent: Accessory Muscle Use, Respiratory Distress - Cardiovascular Exam Cardiovascular Exam: Tachycardia, REGULAR RHYTHM. absent: Bradycardia - GI/Abdominal Exam GI & Abdominal Exam: Soft. absent: Tenderness - Extremities Exam Extremities Exam: Full ROM. absent: Pedal Edema - Psychiatric Exam Psychiatric exam: Normal Affect, Normal Mood - Skin Skin Exam: Dry, Intact, Normal Color, Warm Assessment and Plan - Assessment and Plan (Free Text) Plan: C dif associated diarrhea * + C. DIFF 06/14-->ordered for repeat today and tomorrow * Contact isolation * Ordered for CT abdomen/pelvis PO and IV contrast: Large wedge-shaped area diminished attenuation/ enhancement in the upper pole right kidney. Consistent with pyelonephritis. Rule out infarct. No evidence of colitis. No other significant abnormality. * C. Dif + 06/14, repeat c.diff 06/16/17 NEGATIVE * Flagyl 500 mg IV Q8H started 06/14/17 * Vancomycin 125mg PO QID started 06/15/17 Pyelonephritis; ESBL+ UTI-->resolved * ID Consult: Dr. Jain on board help appreciated * Blood cultures (06/01/17): negative * Urine culture * ESBL (06/01 E. coli; 06/04 Enterococcus faecium) * 06/08 Urine culture - no growth * Contact precautions removed for ESBL+ UTI-->restart for positive C. Dif+ * CT Abdomen/Pelvis (06/02/17): moderate size focal are of heterogenous decreased enhancement of the right renal cortex consistent with pyelonephritis. mild bilateral hydronephrosis and hydroureter. Low attentuation cystic mass at the lower uterine segment and uterine cervix new. Mild to moderate urinary bladder wall thickening suspicious for cystitis. * Primaxin 500 IV Q8H (completed ten day course per ID, on 06/14/17) * Vancomycin 1g Q12h (added 06/06) 06/06-06/10 COMPLETED COURSE Hypertension--Controlled * Aspirin 81mg PO daily * Cozaar 50mg PO daily * monitor vitals Diabetes-->uncontrolled * Accuchecks QAC and HS * A1C 9.1 * Diabetic clear liquids * Lantus 13 units SC HS * Insulin regular 4 units TID with meals * Hypoglycemic protocol ordered Bronchitis * CXR: negative for disease * Mucinex 600mg PRN * 06/09 flu a/b negative * 06/12 CXR: right hilar prominence. Mild interstitial prominence may reflect infection or edema * Promethazine/codeine 5cc POQ4 PRN for cough/sore throat Cystic Mass Lower uterine segment & Cervix (seen on CT abdomen) * 06/02 CT abdomen/pelvis:low attenuation of cystic mass lesion changes in lower uterine segment and uterine cervix, [id number] bladder wall thickening, decreased enhancement at right renal cortex consistent with pyelonephritis. * 06/10 Transvaginal US/Pelvis s/p hysterectomy bilateral oopherectomy; no gross abnormality identified in the pelvis. * Patient is not having post-menopausal bleeding Blurry vision * Ophthalmology consult: Dr. Oleksandr Sinclair, resident eft message at office 06/13 * Patient reports she has not seen a eye doctor in quite some time, report blurry vision improves with glasses, and has not had diabetic eye exam screening Prophylaxis * Heparin 5000 units SC 8hours for DVT ppx * Pepcid 20mg PO daily for GI ppx * PT/OT eval * Florastor 250mg PO * Zofran 4mg IV Q 6hour PRN nausea * Contact isolation DW Vinny Schmidt DO, PGY-1
[2017-06-16] MEDS: (Novolin R) Insulin Human Regular 100 units/ml vial SC SCH ×3 (08:30→16:30)
[2017-06-16] MEDS: metroNIDAZOLE IV 500 mg/100 ml 500 MG/100 ML BAG IVPB SCH (08:35)
[2017-06-16 09:17] LABS: BASO # 0.1 K/uL (0.0-0.2); BASO % 0.8 % (0.0-2.0); EOS # 0.3 K/uL (0.0-0.7); EOS % 3.4 % (0.0-4.0); LYMPH # 2.9 K/uL (1.0-4.3); LYMPH % 31.6 % (20.0-40.0); MEAN CELL VOLUME 84.7 fL (81.0-99.0); MEAN CORPUSCULAR HGB CONC 34.3 g/dL (33.0-37.0); MEAN PLATELET VOLUME 7.6 fL (7.2-11.7); MONO # 0.6 K/uL (0.0-0.8); RED CELL DISTRIBUTION WIDTH 14.1 % (11.5-14.5)
[2017-06-16] MEDS: Vancomycin 125 MG/5 ML SOLN (ORAL/RECTAL) PO SCH ×3 (09:35→17:30)
[2017-06-16] MEDS: Saccharomyces Boulardi 250 mg Cap PO SCH ×2 (09:36→17:28)
[2017-06-16 09:37] LABS: CHLORIDE 96 mmol/L (98-107); POTASSIUM 5.2 mmol/L (3.6-5.2); SODIUM 137 mmol/L (132-148)
[2017-06-16 09:39] LABS: AST/SGOT 23 U/L (14-36); BILIRUBIN,TOTAL 0.7 mg/dL (0.2-1.3); CARBON DIOXIDE 28 mmol/L (22-30); GFR AFRICAN-AMERICAN > 60
[2017-06-16 09:40] LABS: ALKALINE PHOSPHATASE 93 U/L (38-126); ALT/SGPT 20 U/L (9-52); BLOOD UREA NITROGEN 14 mg/dL (7-17); CALCIUM 9.2 mg/dl (8.6-10.4); GLUCOSE,RANDOM 240 mg/dL (65-105); TOTAL PROTEIN 7.8 g/dL (6.3-8.3)
[2017-06-16 09:41] LABS: MAGNESIUM 1.8 mg/dL (1.6-2.3)
--- NOTE | 2017-06-16 11:48 | CT ---
PROCEDURE: CT Abdomen and Pelvis with contrast HISTORY: abdominal pain and positive C dif COMPARISON: 06/02/2017 TECHNIQUE: Contrast dose: 100 mL Visipaque 320 Radiation dose: Total exam DLP = 849.14 mGy-cm. This CT exam was performed using one or more of the following dose reduction techniques: Automated exposure control, adjustment of the mA and/or kV according to patient size, and/or use of iterative reconstruction technique. FINDINGS: LOWER THORAX: Unremarkable. LIVER: Unremarkable. No gross lesion or ductal dilatation. GALLBLADDER AND BILE DUCTS: Status post cholecystectomy. PANCREAS: Unremarkable. No gross lesion or ductal dilatation. SPLEEN: Unremarkable. ADRENALS: Unremarkable. No mass. KIDNEYS AND URETERS: Persistent large wedge-shaped area of diminished attenuation/enhancement in the upper pole right kidney. The size of the involved region is slightly decreased when compared to the prior examination. This may represent pyelonephritis or christel renal infarct, subacute. The left kidney is unremarkable. There is no renal mass. There is no calculus or hydronephrosis. VASCULATURE: Unremarkable. No aortic aneurysm. BOWEL: Unremarkable. No obstruction. No gross mural thickening. APPENDIX: Not identified. No secondary findings to suggest acute appendicitis. PERITONEUM: Unremarkable. No free fluid. No free air. LYMPH NODES: Unremarkable. No enlarged lymph nodes. BLADDER: Poorly distended. Mural thickening seen on this examination most likely reflect lack of adequate distention. REPRODUCTIVE: Normal postmenopausal uterus. BONES: No acute fracture. OTHER FINDINGS: None. IMPRESSION: Large wedge-shaped area diminished attenuation/ enhancement in the upper pole right kidney. Consistent with pyelonephritis. Rule out infarct. No evidence of colitis. No other significant abnormality.
--- NOTE | 2017-06-16 14:03 | CP.PCM.DIS ---
<VinnyMaria Elena - Last Filed: 06/16/17 15:41> Provider - Provider Date of Admission: 06/01/17 22:32 Attending physician: Katy Gaspar DO Time Spent in preparation of Discharge (in minutes): 55 Hospital Course - Lab Results Lab Results: Micro Results 06/08/17 16:10 Urine,Catheterized Urine Culture - Final No Growth (<1,000 CFU/ML) 06/01/17 20:30 Blood-Venous Blood Culture - Final NO GROWTH AFTER 5 DAYS 06/01/17 20:30 Blood-Venous Gram Stain - Final TEST NOT PERFORMED 06/01/17 22:00 Blood-Venous Blood Culture - Final NO GROWTH AFTER 5 DAYS 06/01/17 22:00 Blood-Venous Gram Stain - Final TEST NOT PERFORMED 06/04/17 11:55 Urine,Catheterized Urine Culture - Final Enterococcus Faecium 06/01/17 Unknown Urine Urine Culture - Final Escherichia Coli Most Recent Lab Values WBC 9.0 K/uL (4.8-10.8) 06/16/17 09:05 RBC 4.49 Mil/uL (3.80-5.20) 06/16/17 09:05 Hgb 13.0 g/dL (11.0-16.0) 06/16/17 09:05 Hct 38.0 % (34.0-47.0) 06/16/17 09:05 MCV 84.7 fL (81.0-99.0) 06/16/17 09:05 MCH 29.0 pg (27.0-31.0) 06/16/17 09:05 MCHC 34.3 g/dL (33.0-37.0) 06/16/17 09:05 RDW 14.1 % (11.5-14.5) 06/16/17 09:05 Plt Count 551 K/uL (130-400) H 06/16/17 09:05 MPV 7.6 fL (7.2-11.7) 06/16/17 09:05 Neut % (Auto) 57.2 % (50.0-75.0) 06/16/17 09:05 Lymph % (Auto) 31.6 % (20.0-40.0) 06/16/17 09:05 Wagoner % (Auto) 7.0 % (0.0-10.0) 06/16/17 09:05 Eos % (Auto) 3.4 % (0.0-4.0) 06/16/17 09:05 Baso % (Auto) 0.8 % (0.0-2.0) 06/16/17 09:05 Neut # 5.2 K/uL (1.8-7.0) 06/16/17 09:05 Lymph # 2.9 K/uL (1.0-4.3) 06/16/17 09:05 Wagoner # 0.6 K/uL (0.0-0.8) 06/16/17 09:05 Eos # 0.3 K/uL (0.0-0.7) 06/16/17 09:05 Baso # 0.1 K/uL (0.0-0.2) 06/16/17 09:05 Differential Comment 06/14/17 11:49 Sodium 137 mmol/L (132-148) 06/16/17 09:05 Potassium 5.2 mmol/L (3.6-5.2) 06/16/17 09:05 Chloride 96 mmol/L (98-107) L 06/16/17 09:05 Carbon Dioxide 28 mmol/L (22-30) 06/16/17 09:05 Anion Gap 18 (10-20) 06/16/17 09:05 BUN 14 mg/dL (7-17) 06/16/17 09:05 Creatinine 0.7 MG/DL (0.7-1.2) 06/16/17 09:05 Est GFR ( Amer) > 60 06/16/17 09:05 Est GFR (Non-Af Amer) > 60 06/16/17 09:05 POC Glucose (mg/dL) 371 mg/dL (65-110) H 06/16/17 11:09 Random Glucose 240 mg/dL (65-105) H 06/16/17 09:05 Hemoglobin A1c 9.1 % (4.2-6.5) H 06/03/17 11:19 Lactic Acid 1.2 mmol/L (0.7-2.1) 06/02/17 12:09 Calcium 9.2 mg/dl (8.6-10.4) 06/16/17 09:05 Phosphorus 4.0 mg/dL (2.5-4.5) 06/16/17 09:05 Magnesium 1.8 mg/dL (1.6-2.3) 06/16/17 09:05 Total Bilirubin 0.7 mg/dL (0.2-1.3) 06/16/17 09:05 AST 23 U/L (14-36) 06/16/17 09:05 ALT 20 U/L (9-52) 06/16/17 09:05 Alkaline Phosphatase 93 U/L (38-126) 06/16/17 09:05 Total Protein 7.8 g/dL (6.3-8.3) 06/16/17 09:05 Albumin 3.8 g/dL (3.5-5.0) 06/16/17 09:05 Globulin 4.0 gm/dL (2.2-3.9) H 06/16/17 09:05 Albumin/Globulin Ratio 1.0 (1.0-2.1) 06/16/17 09:05 Lipase 32 U/L (23-300) 06/01/17 22:00 Procalcitonin 4.61 NG/ML (0.19-0.49) H 06/02/17 12:09 Urine Color Yellow (YELLOW) 06/04/17 12:37 Urine Clarity Clear (Clear) 06/04/17 12:37 Urine pH 5.0 (5.0-8.0) 06/04/17 12:37 Ur Specific [place] 1.010 (1.003-1.030) 06/04/17 12:37 Urine Protein Negative mg/dL (NEGATIVE) 06/04/17 12:37 Urine Glucose (UA) 3+ mg/dL (Normal) H 06/04/17 12:37 Urine Ketones Negative mg/dL (NEGATIVE) 06/04/17 12:37 Urine Blood 1+ (NEGATIVE) H 06/04/17 12:37 Urine Nitrate Negative (NEGATIVE) 06/04/17 12:37 Urine Bilirubin Negative (NEGATIVE) 06/04/17 12:37 Urine Urobilinogen 4.0 mg/dL (0.2-1.0) H 06/04/17 12:37 Ur Leukocyte Esterase Trace Jason/uL (Negative) 06/04/17 12:37 Urine WBC (Auto) 9 /hpf (0-5) H 06/04/17 12:37 Urine RBC (Auto) 11 /hpf (0-3) H 06/04/17 12:37 Urine WBC Clumps (Auto) Mod /hpf (NONE) H 06/01/17 22:00 Ur Squamous Epith Cells 5 /hpf (0-5) 06/04/17 12:37 Urine Bacteria Occ (<OCC) H 06/04/17 12:37 Hyaline Casts 3-5 /lpf (0-2) H 06/01/17 22:00 Stool Occult Blood Negative (NEGATIVE) 06/11/17 07:44 Vancomycin Trough 12.2 ug/mL (5.0-10.0) H 06/08/17 05:27 C. difficile Ag & Toxin Negative (NEGATIVE) 06/16/17 11:30 Influenza Typ A,B (EIA) Negative for flu a/b (NEGATIVE) 06/09/17 22:00 - Hospital Course Hospital Course: Upon Admission: CC:"abdominal pain" HPI: 71 year old female with history of hypertension and diabetes who presents to the emergency room for abdominal pain. Through the patient's grandson translating the patient states the pain has been going on for about 5-6 days and getting worse. She states when she coughs the pain is worse. She states the pain is currently a 5/10. Denies that nothing makes it better or worse. She was not able to describe the abdominal pain but just states that it hurts. She did not have a bowel movement for 5 days but finally had one today. She states she has been having a fever of about 103 degrees around 5pm today and her daughter has been giving her Tylenol every 6 hours. The daughter states when she has the fever she become a bit delirious but otherwise she is oriented. Patient states she has been having chills, shortness of breath, dysuria, vomiting about 5-6 times today. She states she has been eating and drinking normally. She states the dysuria started about 5 days ago as well. She denies hematuria, emesis, chest pain, or palpitations. PMD: [facility] Past Medical History: Hypertension, Diabetes Past Surgical History: Hysterectomy; Lap Shira Family History: Denies Medications: 80/12.5mg Valsartan/HCTZ; Dulcolax; 81mg Aspirin daily; 20mg Famotidine daily; Novolin insulin 45 units during the day and 50 units in the evening Allergies: NKDA Social: Speaks Faroese; Lives at home with daughter; denies smoking, illicit drug use or alcohol use Throughout Hospital Course: Patient was admitted for Pyelonephritis. 1) C dif associated diarrhea * + C. DIFF 06/14--> repeat 06/16/17 - NEGATIVE * Ordered for CT abdomen/pelvis PO and IV contrast: Large wedge-shaped area diminished attenuation/ enhancement in the upper pole right kidney. Consistent with pyelonephritis. Rule out infarct. No evidence of colitis. No other significant abnormality. * Contact isolation * Flagyl 500 mg IV Q8H started 06/14/17 * Vancomycin 125mg PO QID started 06/15/17 2) Pyelonephritis; ESBL+ UTI-->resolved * ID Consult: Dr. Jain on board help appreciated * Blood cultures (06/01/17): negative * Urine culture * ESBL (06/01 E. coli; 06/04 Enterococcus faecium) * 06/08 Urine culture - no growth * Contact precautions removed for ESBL+ UTI-->restart for positive C. Dif+ * CT Abdomen/Pelvis (06/02/17): moderate size focal are of heterogenous decreased enhancement of the right renal cortex consistent with pyelonephritis. mild bilateral hydronephrosis and hydroureter. Low attentuation cystic mass at the lower uterine segment and uterine cervix new. Mild to moderate urinary bladder wall thickening suspicious for cystitis. * Primaxin 500 IV Q8H (completed ten day course per ID, on 06/14/17) * Vancomycin 1g Q12h (added 06/06) 06/06-06/10 COMPLETED COURSE 3) Hypertension--Controlled * Aspirin 81mg PO daily * Cozaar 50mg PO daily * monitor vitals 4) Diabetes-->uncontrolled * Accuchecks QAC and HS * A1C 9.1 * Diabetic clear liquids * Lantus 13 units SC HS * Insulin regular 4 units TID with meals * Hypoglycemic protocol ordered 5) Bronchitis * CXR: negative for disease * Mucinex 600mg PRN * 06/09 flu a/b negative * 06/12 CXR: right hilar prominence. Mild interstitial prominence may reflect infection or edema * Promethazine/codeine 5cc POQ4 PRN for cough/sore throat 6) Cystic Mass Lower uterine segment & Cervix (seen on CT abdomen) * 06/02 CT abdomen/pelvis:low attenuation of cystic mass lesion changes in lower uterine segment and uterine cervix, [id number] bladder wall thickening, decreased enhancement at right renal cortex consistent with pyelonephritis. * 06/10 Transvaginal US/Pelvis s/p hysterectomy bilateral oopherectomy; no gross abnormality identified in the pelvis. * Patient is not having post-menopausal bleeding 7) Blurry vision * Ophthalmology consult: Dr. Oleksandr Sinclair, resident eft message at office 06/13 * Patient reports she has not seen a eye doctor in quite some time, report blurry vision improves with glasses, and has not had diabetic eye exam screening This is a brief summary of the patient's hospital course, please review EMR. Discharge Exam - Head Exam Head Exam: NORMAL INSPECTION - Additional Findings Additional findings: - Constitutional Appears: Non-toxic - Head Exam Head Exam: NORMAL INSPECTION - Eye Exam Eye Exam: EOMI, Normal appearance - ENT Exam ENT Exam: Mucous Membranes Moist - Neck Exam Neck Exam: Full ROM. absent: Tenderness - Respiratory Exam Respiratory Exam: NORMAL BREATHING PATTERN. absent: Accessory Muscle Use, Respiratory Distress - Cardiovascular Exam Cardiovascular Exam: Tachycardia, REGULAR RHYTHM. absent: Bradycardia - GI/Abdominal Exam GI & Abdominal Exam: Soft. absent: Tenderness - Extremities Exam Extremities Exam: Full ROM. absent: Pedal Edema - Psychiatric Exam Psychiatric exam: Normal Affect, Normal Mood - Skin Skin Exam: Dry, Intact, Normal Color, Warm Discharge Plan - Discharge Medications Prescriptions: Blood Sugar Diagnostic [Embrace] 1 each MC TID 30 Days strip Losartan [Cozaar] 50 mg PO DAILY #14 tab Metronidazole [Flagyl] 500 mg PO Q8H 12 Days tablet Promethazine HCl/Codeine [Prometh-Codein 6.25-10 mg/5 ml] 5 ml PO Q6H PRN #100 syrup PRN Reason: Cough - Follow Up Plan Condition: GOOD Disposition: HOME/ ROUTINE Instructions: Promethazine (By mouth), Metronidazole (By mouth), Losartan (By mouth), Urinary Tract Infection in Women (DC), Urinary Tract Infection in Men ( DC), Diabetes Mellitus Type 2 in Adults (DC), Acute Pyelonephritis (DC), Dysuria (GEN) Additional Instructions: Please continue the following medications listed on the paper form given to you by your nurse. Please continue to take Flagyl 500mg by mouth three times a day for 12 days for the infection, in your stomach. Patient will need to follow up at [facility] where she can receive a referral for ophthalmology for diabetic eye screening exam. If patient continues to have recurrent UTIs, may need referral to Urology. Please return to the ED if her symptoms worsen or return. ---- Lan [place] du'r tuhn angelt kgaza phrama t scbadha kt' cam'' n jr presley. Lan blanc lgbrooks la 12 din la' phalaigala 500mg mha vica rzn zaire dania nguyen. Marza n nbarahua hailatha kalnika vikh phl apa karana d zarrata h'g, jith uha ' ibika akha sakrniga prkhi' la phathamaulj la raipharala ta sakad elaine. J columba vila vinay vinay 'ua vl y..'za h chd hana, t usa n yrlj d raipharala d la h sakad elaine. Lan blanc aia. kla vpasa ' j usa d lachaa vigaad j vpasa 'und hana. Referrals: [facility] at [facility] [Outside] <Katy Gaspar V - Last Filed: 06/16/17 21:27> Provider - Provider Date of Admission: 06/01/17 22:32 Attending physician: Katy Gaspar DO Hospital Course - Lab Results Lab Results: Micro Results 06/08/17 16:10 Urine,Catheterized Urine Culture - Final No Growth (<1,000 CFU/ML) 06/01/17 20:30 Blood-Venous Blood Culture - Final NO GROWTH AFTER 5 DAYS 06/01/17 20:30 Blood-Venous Gram Stain - Final TEST NOT PERFORMED 06/01/17 22:00 Blood-Venous Blood Culture - Final NO GROWTH AFTER 5 DAYS 06/01/17 22:00 Blood-Venous Gram Stain - Final TEST NOT PERFORMED 06/04/17 11:55 Urine,Catheterized Urine Culture - Final Enterococcus Faecium 06/01/17 Unknown Urine Urine Culture - Final Escherichia Coli Most Recent Lab Values WBC 9.0 K/uL (4.8-10.8) 06/16/17 09:05 RBC 4.49 Mil/uL (3.80-5.20) 06/16/17 09:05 Hgb 13.0 g/dL (11.0-16.0) 06/16/17 09:05 Hct 38.0 % (34.0-47.0) 06/16/17 09:05 MCV 84.7 fL (81.0-99.0) 06/16/17 09:05 MCH 29.0 pg (27.0-31.0) 06/16/17 09:05 MCHC 34.3 g/dL (33.0-37.0) 06/16/17 09:05 RDW 14.1 % (11.5-14.5) 06/16/17 09:05 Plt Count 551 K/uL (130-400) H 06/16/17 09:05 MPV 7.6 fL (7.2-11.7) 06/16/17 09:05 Neut % (Auto) 57.2 % (50.0-75.0) 06/16/17 09:05 Lymph % (Auto) 31.6 % (20.0-40.0) 06/16/17 09:05 Wagoner % (Auto) 7.0 % (0.0-10.0) 06/16/17 09:05 Eos % (Auto) 3.4 % (0.0-4.0) 06/16/17 09:05 Baso % (Auto) 0.8 % (0.0-2.0) 06/16/17 09:05 Neut # 5.2 K/uL (1.8-7.0) 06/16/17 09:05 Lymph # 2.9 K/uL (1.0-4.3) 06/16/17 09:05 Wagoner # 0.6 K/uL (0.0-0.8) 06/16/17 09:05 Eos # 0.3 K/uL (0.0-0.7) 06/16/17 09:05 Baso # 0.1 K/uL (0.0-0.2) 06/16/17 09:05 Differential Comment 06/14/17 11:49 Sodium 137 mmol/L (132-148) 06/16/17 09:05 Potassium 5.2 mmol/L (3.6-5.2) 06/16/17 09:05 Chloride 96 mmol/L (98-107) L 06/16/17 09:05 Carbon Dioxide 28 mmol/L (22-30) 06/16/17 09:05 Anion Gap 18 (10-20) 06/16/17 09:05 BUN 14 mg/dL (7-17) 06/16/17 09:05 Creatinine 0.7 MG/DL (0.7-1.2) 06/16/17 09:05 Est GFR ( Amer) > 60 06/16/17 09:05 Est GFR (Non-Af Amer) > 60 06/16/17 09:05 POC Glucose (mg/dL) 280 mg/dL (65-110) H 06/16/17 16:05 Random Glucose 240 mg/dL (65-105) H 06/16/17 09:05 Hemoglobin A1c 9.1 % (4.2-6.5) H 06/03/17 11:19 Lactic Acid 1.2 mmol/L (0.7-2.1) 06/02/17 12:09 Calcium 9.2 mg/dl (8.6-10.4) 06/16/17 09:05 Phosphorus 4.0 mg/dL (2.5-4.5) 06/16/17 09:05 Magnesium 1.8 mg/dL (1.6-2.3) 06/16/17 09:05 Total Bilirubin 0.7 mg/dL (0.2-1.3) 06/16/17 09:05 AST 23 U/L (14-36) 06/16/17 09:05 ALT 20 U/L (9-52) 06/16/17 09:05 Alkaline Phosphatase 93 U/L (38-126) 06/16/17 09:05 Total Protein 7.8 g/dL (6.3-8.3) 06/16/17 09:05 Albumin 3.8 g/dL (3.5-5.0) 06/16/17 09:05 Globulin 4.0 gm/dL (2.2-3.9) H 06/16/17 09:05 Albumin/Globulin Ratio 1.0 (1.0-2.1) 06/16/17 09:05 Lipase 32 U/L (23-300) 06/01/17 22:00 Procalcitonin 4.61 NG/ML (0.19-0.49) H 06/02/17 12:09 Urine Color Yellow (YELLOW) 06/04/17 12:37 Urine Clarity Clear (Clear) 06/04/17 12:37 Urine pH 5.0 (5.0-8.0) 06/04/17 12:37 Ur Specific [place] 1.010 (1.003-1.030) 06/04/17 12:37 Urine Protein Negative mg/dL (NEGATIVE) 06/04/17 12:37 Urine Glucose (UA) 3+ mg/dL (Normal) H 06/04/17 12:37 Urine Ketones Negative mg/dL (NEGATIVE) 06/04/17 12:37 Urine Blood 1+ (NEGATIVE) H 06/04/17 12:37 Urine Nitrate Negative (NEGATIVE) 06/04/17 12:37 Urine Bilirubin Negative (NEGATIVE) 06/04/17 12:37 Urine Urobilinogen 4.0 mg/dL (0.2-1.0) H 06/04/17 12:37 Ur Leukocyte Esterase Trace Jason/uL (Negative) 06/04/17 12:37 Urine WBC (Auto) 9 /hpf (0-5) H 06/04/17 12:37 Urine RBC (Auto) 11 /hpf (0-3) H 06/04/17 12:37 Urine WBC Clumps (Auto) Mod /hpf (NONE) H 06/01/17 22:00 Ur Squamous Epith Cells 5 /hpf (0-5) 06/04/17 12:37 Urine Bacteria Occ (<OCC) H 06/04/17 12:37 Hyaline Casts 3-5 /lpf (0-2) H 06/01/17 22:00 Stool Occult Blood Negative (NEGATIVE) 06/11/17 07:44 Vancomycin Trough 12.2 ug/mL (5.0-10.0) H 06/08/17 05:27 C. difficile Ag & Toxin Negative (NEGATIVE) 06/16/17 11:30 Influenza Typ A,B (EIA) Negative for flu a/b (NEGATIVE) 06/09/17 22:00 Attending/Attestation - Attestation I have personally seen and examined this patient.: Yes I have fully participated in the care of the patient.: Yes I have reviewed all pertinent clinical information, including history, physical exam and plan: Yes Notes (Text): Patient seen, examined and case discussed with day-time resident. Patient seen earlier in the day pending repeat C. Diff and CT Abdomen/Pelvis. Patient's stool improved to regular and formed. Repeat C. Dif is negative in light antibiotic medical therapy starting on Saturday. Patient to complete 14 day day total of Flagyl 500mg PO TID for c dif associated diarrhea. CT abdomen/Pelvis negative for colitis. Official report available in the EMR. New prescriptions upon discharge: 1) Flagyl 500mg PO Q 8H (to complete total 14 day course) 2) Lantus 1 vial-->give 13 units at night 3) Regular insulin 1 vial-->4 units with each meal 4) Cozaar 50mg once a daily for blood prpessure 5) Aspirin 81mg PO once a day as cardioprotective agent 6) Promethazine w codeine 5ml PO Q 4H PRN cough. Patient to follow-up in the clinic upon discharge, [facility] ). Patient will need referral for opthalmology for diabetic eye screening exam and diabetic management for uncontrolled diabetes. This is a summary of patient's hospitalization. Please see EMR for further details. Assessment/Plan 1) C dif associated diarrhea * Complete 14 day course of Flagyl 500mg PO tid (complete 3 days in the hospital ) * Positive C Dif: 06/14; Negative 06/16 * Diarrhea less frequent and became more formed * CT Abdomen/Pelvis repeated: no colitis (official report available in the chart ) 2) Pyelonephritis; ESBL+ UTI-->resolved * Finish IV abx in hospital 3) Hypertension--Controlled 4) Diabetes-->uncontrolled * Will need f/u for further diabetic management in the [facility] including referral to podiatry/opthamology for diabetic screening exams * 5) Bronchitis * supportive therapy; provided Promethazine w codeine 5ml PO4 PRN cough 6) Cystic Mass Lower uterine segment & Cervix (seen on CT abdomen) * 06/02 CT abdomen/pelvis:low attenuation of cystic mass lesion changes in lower uterine segment and uterine cervix, [id number] bladder wall thickening, decreased enhancement at right renal cortex consistent with pyelonephritis. * 06/10 Transvaginal US/Pelvis s/p hysterectomy bilateral oopherectomy; no gross abnormality identified in the pelvis. 7) Blurry vision * Ophthalmology consult: Dr. Oleksandr Sinclair, resident eft message at office 06/13 * Will need to follow-up outpatient with opthamologist for DM screening 8) Prophylaxis * Heparin 5000 units SC 8hours for DVT ppx * Pepcid 20mg PO daily for GI ppx * PT/OT eval * Florastor 250mg PO * Zofran 4mg IV Q 6hour PRN nausea * Contact isolation
[2017-06-16 16:34] VITALS: BP 130/76; PULSE 82; TEMP 97.7; O2SAT 97
== END 2017-06-16 19:00 | disposition home or self-care (01) | DRG 895 ==
LOC: C.ER 20:16 → C.9E 22:32 → C.3T 22:32 → C.5S 06-04 21:08 → C.3T 06-14 16:04
PROVIDERS: ADMIT Family Medicine; ATTEND Hospitalist
DX: A04.72 Enterocolitis due to Clostridium difficile, not specified as recurrent (principal); E11.9 Type 2 diabetes mellitus without complications; N12 Tubulo-interstitial nephritis, not specified as acute or chronic; N30.91 Cystitis, unspecified with hematuria; E86.0 Dehydration; I10 Essential (primary) hypertension; J40 Bronchitis, not specified as acute or chronic; K59.00 Constipation, unspecified; Z78.9 Other specified health status; Z79.4 Long term (current) use of insulin; H53.8 Other visual disturbances

== ENCOUNTER 2017-07-08 09:15 | Observation (INO) | payer OTHER ==
[2017-07-08 09:25] VITALS: BMI 35.5
--- NOTE | 2017-07-08 10:13 | C.PDOC ---
History Of Present Illness Patient is a 71 y/o F with PMHx of HTN and DM presenting with complaints of intermittent chest pain for 1 month. Patient states she was seen at Clinic 1 week ago and was advised to come to ED for further evaluation. Patient denies shortness of breath, cough, fever, chills, nausea or any other complaints at this time. Time Seen by Provider: 07/08/17 09:41 Chief Complaint (Nursing): Chest Pain History Per: Patient History/Exam Limitations: no limitations Onset/Duration Of Symptoms: Days, Intermittent Episodes Current Symptoms Are (Timing): Still Present Quality: "Pain" Associated Symptoms: denies: Nausea Past Medical History Reviewed: Historical Data, Nursing Documentation, Vital Signs Vital Signs: Last Vital Signs Temp 97.9 F 07/08/17 09:34 Pulse 65 07/08/17 14:11 Resp 15 07/08/17 14:11 BP 116/61 07/08/17 14:11 Pulse Ox 98 07/08/17 14:17 - Medical History PMH: Arthritis (KNEE R> L), Diabetes, Gall Bladder Disease (ERCP STENT PLACEMENTPOST CHOLECYSTECTOMY), HTN Surgical History: Cholecystectomy, Endoscopy - [facility] Procedures ASSISTANCE WITH RESPIRATORY VENTILATION, <24 HRS, CPAP (08/11/16) DILATION OF COMMON BILE DUCT WITH INTRALUMINAL DEVICE, ENDO (08/22/16) EXTIRPATION OF MATTER FROM COMMON BILE DUCT, ENDO (08/22/16) RESECTION OF GALLBLADDER, PERCUTANEOUS ENDOSCOPIC APPROACH (08/11/16) Family History: States: Unknown Family Hx - Social History Hx Alcohol Use: No Hx Substance Use: No - Immunization History Hx Tetanus Toxoid Vaccination: No Hx Influenza Vaccination: No Hx Pneumococcal Vaccination: No Review Of Systems Except As Marked, All Systems Reviewed And Found Negative. Constitutional: Negative for: Fever, Chills Cardiovascular: Positive for: Chest Pain Respiratory: Negative for: Cough, Shortness of Breath, SOB with Excertion, Wheezing Gastrointestinal: Negative for: Nausea, Vomiting, Abdominal Pain, Diarrhea, Constipation Genitourinary: Negative for: Dysuria, Vaginal Discharge, Vaginal Bleeding Musculoskeletal: Negative for: Neck Pain Neurological: Negative for: Weakness, Numbness Psych: Negative for: Anxiety Physical Exam - Physical Exam Appears: Well, Non-toxic, No Acute Distress Skin: Normal Color, Warm, Dry, No Rash Head: Normacephalic Oral Mucosa: Moist Neck: Normal ROM, Supple Chest: Symmetrical Cardiovascular: Rhythm Regular Respiratory: Normal Breath Sounds, No Accessory Muscle Use, No Rales, No Rhonchi , No Wheezing Gastrointestinal/Abdominal: Soft, No Tenderness, No Guarding, No Rebound Extremity: Normal ROM, No Pedal Edema Neurological/Psych: Oriented x3 ED Course And Treatment - Laboratory Results Result Diagrams: 07/08/17 10:17 07/08/17 10:17 O2 Sat by Pulse Oximetry: 98 (RA) Pulse Ox Interpretation: Normal Medical Decision Making Medical Decision Making: EKG shows NSR at 75bpm with normal intervals and no ST changes. Trop x 1 negative. D-dimer elevated. Will get CTA to r/o PE PROCEDURE: CT Angio HISTORY: chest pain, elevated d-dimer COMPARISON: None available. TECHNIQUE: Axial computed tomography images were obtained of the chest in the pulmonary arterial phase of enhancement. Coronal and sagittal reformatted images were created and reviewed. Intravenous contrast dose: 100 mL Visipaque 320 Radiation dose: Total exam DLP = mGy-cm. This CT exam was performed using one or more of the following dose reduction techniques: Automated exposure control, adjustment of the mA and/or kV according to patient size, and/or use of iterative reconstruction technique. FINDINGS: PULMONARY ARTERIES: No evidence of pulmonary embolism. There is heterogeneity of the right lower lobe pulmonary vein and branches which may be due to streak artifact. There is no evidence of pulmonary venous thrombosis. However, questionable soft tissue density about these lower lobe veins this is best demonstrated on series 2, images 117 through 122. Followup contrast chest CT examination is advised. AORTA: No acute findings. No thoracic aortic aneurysm. LUNGS: No pulmonary infiltrate. Mild bilateral nonspecific mosaic attenuation. PLEURAL SPACES: Unremarkable. No effusion or pneuomothorax. HEART: Unremarkable. No cardiomegaly. No significant pericardial effusion. LYMPH NODES: Right infrahilar lymph node, 1.3 cm diameter. Seen on series 2, image 111. No mediastinal lymphadenopathy. Shotty subcentimeter prevascular/A-P window nodes. BONES, CHEST WALL: Unremarkable. No fracture or destructive lesion OTHER FINDINGS: Unremarkable. IMPRESSION: No evidence of pulmonary embolism. Heterogeneity of right lower lobe pulmonary veins likely due to artifact. Questionable soft tissue density about lower lobe veins, versus artifact. Solitary right infrahilar lymph node, 1.3 cm. Uncertain significance. Recommend followup contrast CT examination in several months. Nonspecific mosaic attenuation bilaterally. CT negative for PE. Will transfer to observation under hospitalist for chest pain. Spoke to Dr. Armando Rosado Disposition - Disposition Disposition: HOSPITALIZED Disposition Time: 14:00 Condition: FAIR - Clinical Impression Clinical Impression: Chest pain - Scribe Statement The provider has reviewed the documentation as recorded by the Dianibmaryann Osman All medical record entries made by the Dianibe were at my direction and personally dictated by me. I have reviewed the chart and agree that the record accurately reflects my personal performance of the history, physical exam, medical decision making, and the department course for this patient. I have also personally directed, reviewed, and agree with the discharge instructions and disposition.
[2017-07-08 10:22] LABS: BASO # 0.1 K/uL (0.0-0.2); BASO % 0.8 % (0.0-2.0); EOS # 0.4 K/uL (0.0-0.7); EOS % 4.1 % (0.0-4.0); HEMATOCRIT 40.3 % (34.0-47.0); LYMPH # 3.7 K/uL (1.0-4.3); LYMPH % 41.2 % (20.0-40.0); MEAN CELL VOLUME 84.9 fL (81.0-99.0); MEAN CORPUSCULAR HEMOGLOBIN 28.7 pg (27.0-31.0); MEAN CORPUSCULAR HGB CONC 33.8 g/dL (33.0-37.0); MEAN PLATELET VOLUME 7.8 fL (7.2-11.7); MONO # 0.7 K/uL (0.0-0.8); MONO % 8.2 % (0.0-10.0); NRBC % 0.1 % (0.0-2.0); RED CELL DISTRIBUTION WIDTH 14.1 % (11.5-14.5)
[2017-07-08 10:32] LABS: CHLORIDE 101 mmol/L (98-107); SODIUM 136 mmol/L (132-148)
[2017-07-08 10:34] LABS: GFR AFRICAN-AMERICAN > 60
[2017-07-08 10:35] LABS: ALB/GLOB RATIO 0.9 (1.0-2.1); ALKALINE PHOSPHATASE 74 U/L (38-126); ALT/SGPT 38 U/L (9-52); AST/SGOT 30 U/L (14-36); BILIRUBIN,TOTAL 0.6 mg/dL (0.2-1.3); BLOOD UREA NITROGEN 13 mg/dL (7-17); CALCIUM 9.5 mg/dl (8.6-10.4); CARBON DIOXIDE 28 mmol/L (22-30); GLUCOSE,RANDOM 100 mg/dL (65-105)
[2017-07-08 10:46] LABS: POTASSIUM 4.8 mmol/L (3.6-5.2)
--- NOTE | 2017-07-08 11:23 | RAD ---
Chest x-ray two views History: Chest pain. Comparison: 08/23/2016 Findings: Diffuse increased interstitial lung markings which may be chronic versus mild edema. Few scattered nodular densities at the lung bases. No gross focal infiltrate or effusion. Tortuous ectatic aorta. Heart size within normal limits. Degenerative changes in the spine with paravertebral osteophytosis. Impression: Diffuse increased interstitial lung markings which may be chronic versus mild edema. Few scattered nodular densities at the lung bases. No gross focal infiltrate or effusion. Tortuous ectatic aorta. Heart size within normal limits.
[2017-07-08] MEDS ORDERED: Iodixanol 320 MG/ML 100 ML BOTTLE IV ONE (12:22)
--- NOTE | 2017-07-08 13:48 | CT ---
PROCEDURE: This is total where his in the pain in HISTORY: chest pain, elevated d-dimer COMPARISON: None available. TECHNIQUE: Axial computed tomography images were obtained of the chest in the pulmonary arterial phase of enhancement. Coronal and sagittal reformatted images were created and reviewed. Intravenous contrast dose: 100 mL Visipaque 320 Radiation dose: Total exam DLP = mGy-cm. This CT exam was performed using one or more of the following dose reduction techniques: Automated exposure control, adjustment of the mA and/or kV according to patient size, and/or use of iterative reconstruction technique. FINDINGS: PULMONARY ARTERIES: No evidence of pulmonary embolism. There is heterogeneity of the right lower lobe pulmonary vein and branches which may be due to streak artifact. There is no evidence of pulmonary venous thrombosis. However, questionable soft tissue density about these lower lobe veins this is best demonstrated on series 2, images 117 through 122. Followup contrast chest CT examination is advised. AORTA: No acute findings. No thoracic aortic aneurysm. LUNGS: No pulmonary infiltrate. Mild bilateral nonspecific mosaic attenuation. PLEURAL SPACES: Unremarkable. No effusion or pneuomothorax. HEART: Unremarkable. No cardiomegaly. No significant pericardial effusion. LYMPH NODES: Right infrahilar lymph node, 1.3 cm diameter. Seen on series 2, image 111. No mediastinal lymphadenopathy. Shotty subcentimeter prevascular/A-P window nodes. BONES, CHEST WALL: Unremarkable. No fracture or destructive lesion OTHER FINDINGS: Unremarkable. IMPRESSION: No evidence of pulmonary embolism. Heterogeneity of right lower lobe pulmonary veins likely due to artifact. Questionable soft tissue density about lower lobe veins, versus artifact. Solitary right infrahilar lymph node, 1.3 cm. Uncertain significance. Recommend followup contrast CT examination in several months. Nonspecific mosaic attenuation bilaterally.
--- NOTE | 2017-07-08 17:13 | CP.PCM.HP ---
<LaminJulia - Last Filed: 07/08/17 17:15> History of Present Illness - History of Present Illness History of Present Illness: CC: "chest pain" HPI: Patient is a 71F with PMH of DM, HTN, cystic mass of uterus, constipation, and recent pyelonephritis who presents to the ED complaining of chest pain. Patient says this started 2 weeks ago and it has been intermittent and switching back and forth to different sides of her chest. Patient describes that pain as pinching, non-radiating, and 1 out of 10 in intensity. She denies pressure or sharp, stabbing pain. Patient says she was resting when this started. She says it has never happened before. Patient says she is not currently having chest pain and has not had any pain for a couple days but she came in because she wanted to have her heart checked. Patient says laying down makes it better and nothing makes it worse. She denies palpitations, SOB, cough , fever, chills, headache, changes in vision and hearing, sore throat, dizziness , abdominal pain, N&V, constipation, diarrhea, blood in stool, leg pain, leg swelling, rashes, and sick contacts. PMD: [facility] Past Medical History: Hypertension, diabetes, cystic mass of uterus, constipation, and recent pyelonephritis Past Surgical History: Hysterectomy, Lap Shira Family History: Denies Medications: 50mg Losartan, Novolin insulin 45 units during the day and 50 units in the evening Allergies: NKDA Social: Speaks Portuguese; Lives at home with daughter; denies smoking, illicit drug use or alcohol use Present on Admission - Present on Admission Any Indicators Present on Admission: No Review of Systems - Review of Systems All systems: reviewed and no additional remarkable complaints except (as per HPI ) Past Patient History - Infectious Disease Hx of Infectious Diseases: None - Past Medical History & Family History Past Medical History?: Yes - Past Social History Smoking Status: Never Smoked - CARDIAC Hx Hypertension: Yes - PULMONARY Hx Respiratory Disorders: No - NEUROLOGICAL Hx Neurological Disorder: No - HEENT Hx HEENT Problems: No - RENAL Hx Chronic Kidney Disease: No - ENDOCRINE/METABOLIC Hx Endocrine Disorders: Yes Hx Diabetes Mellitus Type 2: Yes - HEMATOLOGICAL/ONCOLOGICAL Hx Anemia: No - INTEGUMENTARY Hx Dermatological Problems: No - MUSCULOSKELETAL/RHEUMATOLOGICAL Hx Arthritis: Yes (KNEE R> L) - GASTROINTESTINAL Hx Gall Bladder Disease: Yes (ERCP STENT PLACEMENTPOST CHOLECYSTECTOMY) - GENITOURINARY/GYNECOLOGICAL Hx Genitourinary Disorders: Yes (FIBROID UTERUS HX) - PSYCHIATRIC Hx Substance Use: No - SURGICAL HISTORY Hx Cholecystectomy: Yes - ANESTHESIA Hx Anesthesia: Yes Hx Anesthesia Reactions: No Hx Malignant Hyperthermia: No Meds Allergies/Adverse Reactions: Allergies Allergy/AdvReac Type Severity Reaction Status Date / Time No Known Allergies Allergy Verified 07/08/17 09:37 Physical Exam - Constitutional Appears: Non-toxic, No Acute Distress - Head Exam Head Exam: ATRAUMATIC, NORMAL INSPECTION, NORMOCEPHALIC - Eye Exam Eye Exam: EOMI, Normal appearance - ENT Exam ENT Exam: Mucous Membranes Moist - Respiratory Exam Respiratory Exam: Rales (RLL), NORMAL BREATHING PATTERN. absent: Accessory Muscle Use, Rhonchi, Wheezes, Respiratory Distress - Cardiovascular Exam Cardiovascular Exam: REGULAR RHYTHM, +S1, +S2, Systolic Murmur (heard in all 4 ausculatory regions ). absent: Bradycardia, Tachycardia - GI/Abdominal Exam GI & Abdominal Exam: Normal Bowel Sounds, Soft. absent: Distended, Guarding, Tenderness - Extremities Exam Extremities exam: Positive for: normal inspection. Negative for: calf tenderness, pedal edema - Neurological Exam Neurological exam: Alert - Psychiatric Exam Psychiatric exam: Normal Affect, Normal Mood - Skin Skin Exam: Dry, Intact, Normal Color, Warm Results - Vital Signs Recent Vital Signs: Last Vital Signs Temp 97.9 F 07/08/17 09:34 Pulse 65 07/08/17 14:11 Resp 15 07/08/17 14:11 BP 116/61 07/08/17 14:11 Pulse Ox 98 07/08/17 14:26 - Labs Result Diagrams: 07/08/17 10:17 07/08/17 10:17 Labs: Laboratory Results - last 24 hr 07/08/17 07/08/17 07/08/17 10:17 10:17 10:17 WBC 9.0 RBC 4.74 Hgb 13.6 Hct 40.3 MCV 84.9 MCH 28.7 MCHC 33.8 RDW 14.1 Plt Count 291 D MPV 7.8 Neut % (Auto) 45.7 L Lymph % (Auto) 41.2 H [place] % (Auto) 8.2 Eos % (Auto) 4.1 H Baso % (Auto) 0.8 Neut # 4.1 Lymph # 3.7 [place] # 0.7 Eos # 0.4 Baso # 0.1 PT 11.0 INR 1.0 APTT 29 D-Dimer, Quantitative 445 H Sodium 136 Potassium 4.8 Chloride 101 Carbon Dioxide 28 Anion Gap 12 BUN 13 Creatinine 0.6 L Est GFR ( Amer) > 60 Est GFR (Non-Af Amer) > 60 Random Glucose 100 Calcium 9.5 Total Bilirubin 0.6 AST 30 ALT 38 Alkaline Phosphatase 74 Total Creatine Kinase 35 CK-MB (Mass) 0.35 Troponin I < 0.0120 NT-Pro-B Natriuret Pep 64.2 Total Protein 9.0 H Albumin 4.2 Globulin 4.8 H Albumin/Globulin Ratio 0.9 L Assessment & Plan (1) Atypical chest pain Assessment and Plan: * CT Chest (07/08): No evidence of pulmonary embolism. Heterogeneity of right lower lobe pulmonary veins likely due to artifact. Questionable soft tissue density about lower lobe veins, versus artifact. Solitary right infrahilar lymph node, 1.3 cm. Uncertain significance. Recommend followup contrast CT examination in several months. Nonspecific mosaic attenuation bilaterally. * Repeat in 3 months in clinic * CXR (07/08): Diffuse increased interstitial lung markings which may be chronic versus mild edema. Few scattered nodular densities at the lung bases. No gross focal infiltrate or effusion. Tortuous ectatic aorta. Heart size within normal limits. * KAVYA and EKG negative x1 * f/u KAVYA and EKG @6pm and 12am * f/u 2D echo in AM * Cardiology consulted (Dr. Bridges) - recs appreciated Status: Acute (2) Elevated d-dimer Assessment and Plan: * CT chest: negative as described above * f/u venous doppler of b/l LEs Status: Acute (3) Lymph node enlargement Assessment and Plan: * CT chest: as described above, 1.3 cm Right infrahilar lymph node * Repeat CT chest in 3 months Status: Acute (4) Uterine mass Assessment and Plan: * as described on previous admission * f/u outpatient with ObGyn at clinic for US Status: Chronic (5) Constipation Assessment and Plan: * currently having normal BMs Status: Chronic (6) Diabetes Assessment and Plan: * ISS low dose * Accuchecks * Crestor 2.5 mg QHS * Upon discharge: metformin 500 PO BID (hold in anticipation of need for stress test) and Simvastatin 10 mg PO QHS Status: Chronic (7) HTN (hypertension) Assessment and Plan: * vitals Q4 * continue home med: Losartan 50 mg PO QD Status: Chronic (8) Prophylactic measure Assessment and Plan: * DVT risk score: 3 * SCDs * Heparin 5000 U SC Q8 Status: Acute <Armando Rosado - Last Filed: 07/08/17 20:40> Results - Vital Signs Recent Vital Signs: Last Vital Signs Temp 97.7 F 07/08/17 20:15 Pulse 79 07/08/17 20:15 Resp 20 07/08/17 20:15 BP 155/70 H 07/08/17 20:15 Pulse Ox 97 07/08/17 20:15 - Labs Result Diagrams: 07/08/17 10:17 07/08/17 10:17 Labs: Laboratory Results - last 24 hr 07/08/17 07/08/17 07/08/17 10:17 10:17 10:17 WBC 9.0 RBC 4.74 Hgb 13.6 Hct 40.3 MCV 84.9 MCH 28.7 MCHC 33.8 RDW 14.1 Plt Count 291 D MPV 7.8 Neut % (Auto) 45.7 L Lymph % (Auto) 41.2 H [place] % (Auto) 8.2 Eos % (Auto) 4.1 H Baso % (Auto) 0.8 Neut # 4.1 Lymph # 3.7 [place] # 0.7 Eos # 0.4 Baso # 0.1 PT 11.0 INR 1.0 APTT 29 D-Dimer, Quantitative 445 H Sodium 136 Potassium 4.8 Chloride 101 Carbon Dioxide 28 Anion Gap 12 BUN 13 Creatinine 0.6 L Est GFR ( Amer) > 60 Est GFR (Non-Af Amer) > 60 POC Glucose (mg/dL) Random Glucose 100 Calcium 9.5 Total Bilirubin 0.6 AST 30 ALT 38 Alkaline Phosphatase 74 Total Creatine Kinase 35 CK-MB (Mass) 0.35 Troponin I < 0.0120 Troponin I, Quant NT-Pro-B Natriuret Pep 64.2 Total Protein 9.0 H Albumin 4.2 Globulin 4.8 H Albumin/Globulin Ratio 0.9 L 07/08/17 07/08/17 07/08/17 17:57 18:02 18:44 WBC RBC Hgb Hct MCV MCH MCHC RDW Plt Count MPV Neut % (Auto) Lymph % (Auto) [place] % (Auto) Eos % (Auto) Baso % (Auto) Neut # Lymph # [place] # Eos # Baso # PT INR APTT D-Dimer, Quantitative Sodium Potassium Chloride Carbon Dioxide Anion Gap BUN Creatinine Est GFR ( Amer) Est GFR (Non-Af Amer) POC Glucose (mg/dL) 55 L 188 H Random Glucose Calcium Total Bilirubin AST ALT Alkaline Phosphatase Total Creatine Kinase 24 L CK-MB (Mass) 0.29 Troponin I Troponin I, Quant < 0.0120 NT-Pro-B Natriuret Pep Total Protein Albumin Globulin Albumin/Globulin Ratio 07/08/17 19:25 WBC RBC Hgb Hct MCV MCH MCHC RDW Plt Count MPV Neut % (Auto) Lymph % (Auto) [place] % (Auto) Eos % (Auto) Baso % (Auto) Neut # Lymph # [place] # Eos # Baso # PT INR APTT D-Dimer, Quantitative Sodium Potassium Chloride Carbon Dioxide Anion Gap BUN Creatinine Est GFR ( Amer) Est GFR (Non-Af Amer) POC Glucose (mg/dL) 146 H Random Glucose Calcium Total Bilirubin AST ALT Alkaline Phosphatase Total Creatine Kinase CK-MB (Mass) Troponin I Troponin I, Quant NT-Pro-B Natriuret Pep Total Protein Albumin Globulin Albumin/Globulin Ratio Attending/Attestation - Attestation I have personally seen and examined this patient.: Yes I have fully participated in the care of the patient.: Yes I have reviewed all pertinent clinical information: Yes Notes (Text): 07/08/17 20:40 Patient was seen and examined with the resident ER Bed #2 07/08/17. History, Physical, Assessment and Plan were thoroughly gone over with the resident. Armando Rosado D.O.
[2017-07-08] MEDS ORDERED: Dextrose 50% SYRINGE Inj (50 ml) IV STA (17:59)
[2017-07-08] MEDS ORDERED: Dextrose 50% SYRINGE Inj (50 ml) ONE (18:06)
[2017-07-08] MEDS ORDERED: Albuterol-Ipratrop 3 mg / 0.5 (3 ml) UD ONE (19:49)
[2017-07-08] MEDS: (Novolin R) Insulin Human Regular 100 units/ml vial SC SCH (21:46)
[2017-07-08] MEDS: Rosuvastatin Calcium 2.5 mg Tab PO SCH (21:58)
[2017-07-09] MEDS: (Novolin R) Insulin Human Regular 100 units/ml vial SC SCH ×4 (08:06→21:15)
[2017-07-09 08:54] LABS: THYROID STIMULATING HORMONE 1.01 mIU/L (0.46-4.68)
--- NOTE | 2017-07-09 10:30 | VASCLAB ---
PROCEDURE: Lower Extremity Venous Duplex Exam. HISTORY: Elevated D-dimer PRIORS: No previous vascular exam. TECHNIQUE: Bilateral common femoral, femoral, popliteal and posterior tibial, peroneal and great saphenous veins were evaluated. Flow was assessed with color Doppler, compressibility, assessment of phasic flow and augmentation response. Report prepared by LUBA Shelby FINDINGS: RIGHT: 1. Common Femoral Vein: 1.1. Compressibility - Fully compressible: Thrombus - None : Flow - Phasic: Augmentation -Normal: Reflux - None. 2. Femoral Vein: 2.1. Compressibility - Fully compressible: Thrombus - None : Flow - Phasic: Augmentation -Normal: Reflux - None. 3. Popliteal Vein: 3.1. Compressibility - Fully compressible: Thrombus - None : Flow - Phasic: Augmentation -Normal: Reflux - None. 4. Posterior Tibial Vein: 4.1. Compressibility - Fully compressible: Thrombus - None: Flow - Phasic: Augmentation -Normal: Reflux - None. 5. Peroneal Vein: 5.1. Compressibility - Fully compressible: Thrombus - None: Flow - Phasic: Augmentation -Normal: Reflux - None. 6. Great Saphenous Vein: 6.1. Compressibility - Fully compressible: Thrombus - None: Flow - Phasic: Augmentation - Normal: Reflux - None. LEFT: 1. Common Femoral Vein: 1.1. Compressibility - Fully compressible: Thrombus - None: Flow - Phasic: Augmentation -Normal: Reflux - None. 2. Femoral Vein: 2.1. Compressibility - Fully compressible: Thrombus - None: Flow - Phasic: Augmentation -Normal: Reflux - None. 3. Popliteal Vein: 3.1. Compressibility - Fully compressible: Thrombus - None : Flow - Phasic: Augmentation -Normal: Reflux - None. 4. Posterior Tibial Vein: 4.1. Compressibility - Fully compressible: Thrombus - None: Flow - Phasic: Augmentation -Normal: Reflux - None. 5. Peroneal Vein: 5.1. Compressibility - Fully compressible: Thrombus - None: Flow - Phasic: Augmentation -Normal: Reflux - None. 6. Great Saphenous Vein: 6.1. Compressibility - Fully compressible: Thrombus - None: Flow - Phasic: Augmentation - Normal: Reflux - None. OTHER FINDINGS: Diminished caliber noted of the veins in the calves. IMPRESSION: Right: No evidence of deep or superficial vein thrombosis of the right lower extremity. Normal valve function noted of the right side. Left: No evidence of deep or superficial vein thrombosis of the left lower extremity. Normal valve function noted of the left side.
--- NOTE | 2017-07-09 11:41 | CP.PCM.CON ---
History of Present Illness - History of Present Illness History of Present Illness: Chart reviewed: 71 year old admitted with 2 weeks history of mild chest pain fleeting all over the chest unrelated to exertion and abates spontaneosuly unrelated to ingestion and arm movement and inspiration; Post admission was noted to have elevated D dimer normal serum troponin and BNP values; a CT scan showed no evidence of PE Past medical history of Systemic hypertension Diabetes Mellitus Pyelonephritis Past surgery:hysterectomy Gall bladder removal Medications: insulin losartan Denied smoking Past Patient History - Infectious Disease Hx of Infectious Diseases: None - Past Medical History & Family History Past Medical History?: Yes - Past Social History Smoking Status: Never Smoked - CARDIAC Hx Cardiac Disorders: Yes Hx Angina: Yes Hx Hypertension: Yes - PULMONARY Hx Respiratory Disorders: No - NEUROLOGICAL Hx Neurological Disorder: No - HEENT Hx HEENT Problems: No - RENAL Hx Chronic Kidney Disease: No - ENDOCRINE/METABOLIC Hx Endocrine Disorders: Yes Hx Diabetes Mellitus Type 2: Yes - HEMATOLOGICAL/ONCOLOGICAL Hx Blood Disorders: No Hx Anemia: No - INTEGUMENTARY Hx Dermatological Problems: No - MUSCULOSKELETAL/RHEUMATOLOGICAL Hx Falls: No - GASTROINTESTINAL Hx Gastrointestinal Disorders: Yes Hx Gall Bladder Disease: Yes (ERCP STENT PLACEMENTPOST CHOLECYSTECTOMY) - GENITOURINARY/GYNECOLOGICAL Hx Genitourinary Disorders: Yes (FIBROID UTERUS HX) - PSYCHIATRIC Hx Psychophysiologic Disorder: No Hx Substance Use: No - SURGICAL HISTORY Hx Surgeries: Yes Hx Cholecystectomy: Yes - ANESTHESIA Hx Anesthesia: Yes Hx Anesthesia Reactions: No Hx Malignant Hyperthermia: No Meds Allergies/Adverse Reactions: Allergies Allergy/AdvReac Type Severity Reaction Status Date / Time No Known Allergies Allergy Verified 07/08/17 09:37 - Medications Medications: Current Medications Aspirin (Aspirin Chewable) 81 mg PO DAILY [facility] Heparin Sodium (Porcine) (Heparin) 5,000 units SC Q8 [facility] Last Admin: 07/08/17 21:58 Dose: 5,000 units Insulin Human Regular (Novolin R) 0 unit SC ACHS [facility] PRN Reason: Protocol Last Admin: 07/09/17 08:06 Dose: Not Given Losartan Potassium (Cozaar) 50 mg PO DAILY [facility] Last Admin: 07/09/17 10:58 Dose: 50 mg Rosuvastatin Calcium (Crestor) 2.5 mg PO HS [facility] Last Admin: 07/08/17 21:58 Dose: 2.5 mg Results - Vital Signs Recent Vital Signs: Last Vital Signs Temp 97.7 F 07/09/17 08:29 Pulse 73 07/09/17 08:29 Resp 20 07/09/17 08:29 BP 127/80 07/09/17 08:29 Pulse Ox 93 L 07/09/17 08:29 - Labs Result Diagrams: 07/08/17 10:17 07/08/17 10:17 Labs: Laboratory Results - last 24 hr 07/08/17 07/08/17 07/08/17 17:57 18:02 18:44 APTT POC Glucose (mg/dL) 55 L 188 H Hemoglobin A1c Total Creatine Kinase 24 L CK-MB (Mass) 0.29 Troponin I, Quant < 0.0120 Triglycerides Cholesterol LDL Cholesterol Direct HDL Cholesterol TSH 3rd Generation 07/08/17 07/08/17 07/09/17 19:25 21:19 07:37 APTT POC Glucose (mg/dL) 146 H 76 Hemoglobin A1c Total Creatine Kinase 28 L CK-MB (Mass) 0.27 Troponin I, Quant < 0.0120 Triglycerides Cholesterol LDL Cholesterol Direct HDL Cholesterol TSH 3rd Generation 07/09/17 07/09/17 07/09/17 07:37 07:37 07:37 APTT 27 POC Glucose (mg/dL) Hemoglobin A1c 8.7 H Total Creatine Kinase CK-MB (Mass) Troponin I, Quant Triglycerides 371 H Cholesterol 175 LDL Cholesterol Direct 101 HDL Cholesterol 27 L TSH 3rd Generation 1.01 07/09/17 08:22 APTT POC Glucose (mg/dL) 123 H Hemoglobin A1c Total Creatine Kinase CK-MB (Mass) Troponin I, Quant Triglycerides Cholesterol LDL Cholesterol Direct HDL Cholesterol TSH 3rd Generation Assessment & Plan - Assessment and Plan (Free Text) Assessment: 71 year old admitted with 2 weeks history of mild chest pain fleeting all over the chest unrelated to exertion and abates spontaneosuly unrelated to ingestion and arm movement and inspiration; Post admission was noted to have elevated D dimer normal serum troponin and BNP values; a CT scan showed no evidence of PE; coronaries were seemingly normal (not exclusionary) EKG was benign The index pain is of unclear origin and significance; attributes make it less likely obstructive disease, of note some vascular risk factors; if echo shows LV systolic dysfunction would obtain a cardiac cath or obtain a stress test as an outpatient if troponins are negative and continue with aspirin plavix statina dn beta mario Plan: Echo Aspirin/plavix Statin Thyroid function Beta mario Plan: see above
[2017-07-09 12:05] LABS: BASO % 0.7 % (0.0-2.0); EOS # 0.2 K/uL (0.0-0.7); EOS % 3.7 % (0.0-4.0); HEMATOCRIT 40.2 % (34.0-47.0); LYMPH # 2.8 K/uL (1.0-4.3); LYMPH % 43.6 % (20.0-40.0); MEAN CELL VOLUME 84.7 fL (81.0-99.0); MEAN CORPUSCULAR HEMOGLOBIN 28.7 pg (27.0-31.0); MEAN CORPUSCULAR HGB CONC 33.9 g/dL (33.0-37.0); MEAN PLATELET VOLUME 8.1 fL (7.2-11.7); MONO # 0.5 K/uL (0.0-0.8); MONO % 7.6 % (0.0-10.0); NRBC % 0.1 % (0.0-2.0); RED CELL DISTRIBUTION WIDTH 14.3 % (11.5-14.5); WHITE BLOOD COUNT 6.5 K/uL (4.8-10.8)
[2017-07-09 12:09] LABS: CHLORIDE 99 mmol/L (98-107); POTASSIUM 4.4 mmol/L (3.6-5.2); SODIUM 131 mmol/L (132-148)
[2017-07-09 12:12] LABS: BLOOD UREA NITROGEN 9 mg/dL (7-17); CARBON DIOXIDE 25 mmol/L (22-30); GFR AFRICAN-AMERICAN > 60; GLUCOSE,RANDOM 230 mg/dL (65-105)
--- NOTE | 2017-07-09 17:36 | CP.PCM.PN ---
<Noel Patino - Last Filed: 07/09/17 17:47> Subjective - Date & Time of Evaluation Date of Evaluation: 07/09/17 Time of Evaluation: 10:00 - Subjective Subjective: Patient has been seen and examined. No overnight events reported. She denies any fever, chills, SOB, Chest Pain, Abdominal Pain, N/V/D, constipation, or changes in urination. Luxembourgish truck assembler was used during interview ([facility] - [id number]) Objective - Vital Signs/Intake and Output Vital Signs (last 24 hours): Temp Pulse Resp BP Pulse Ox 98.1 F 80 18 138/85 87 L 07/09/17 16:38 07/09/17 16:38 07/09/17 16:38 07/09/17 16:38 07/09/17 16:38 Intake and Output: 07/09/17 07/09/17 06:59 18:59 Intake Total 280 Balance 280 - Medications Medications: Current Medications Aspirin (Aspirin Chewable) 81 mg PO DAILY [facility] Last Admin: 07/09/17 12:23 Dose: 81 mg Heparin Sodium (Porcine) (Heparin) 5,000 units SC Q8 [facility] Last Admin: 07/09/17 15:00 Dose: 5,000 units Insulin Human Regular (Novolin R) 0 unit SC ACHS [facility] PRN Reason: Protocol Last Admin: 07/09/17 17:23 Dose: 3 unit Losartan Potassium (Cozaar) 50 mg PO DAILY [facility] Last Admin: 07/09/17 10:58 Dose: 50 mg Rosuvastatin Calcium (Crestor) 2.5 mg PO HS [facility] Last Admin: 07/08/17 21:58 Dose: 2.5 mg - Labs Labs: 07/09/17 11:53 07/09/17 11:53 PT 11.0 SECONDS (9.7-12.2) 07/08/17 10: INR 1.0 07/08/17 10: APTT 27 SECONDS (21-34) 07/09/17 07:37 - Constitutional Appears: Well, Non-toxic, No Acute Distress - Head Exam Head Exam: ATRAUMATIC, NORMAL INSPECTION, NORMOCEPHALIC - Eye Exam Eye Exam: Normal appearance - ENT Exam ENT Exam: Mucous Membranes Moist - Neck Exam Neck Exam: absent: Lymphadenopathy, Thyromegaly - Respiratory Exam Respiratory Exam: Clear to Ausculation Bilateral - Cardiovascular Exam Cardiovascular Exam: RRR, +S1, +S2. absent: Tachycardia - GI/Abdominal Exam GI & Abdominal Exam: Soft. absent: Tenderness - Extremities Exam Extremities Exam: absent: Pedal Edema - Neurological Exam Neurological Exam: Alert, Awake, Oriented x3 - Psychiatric Exam Psychiatric exam: Normal Affect, Normal Mood - Skin Skin Exam: Normal Color Assessment and Plan - Assessment and Plan (Free Text) Assessment: 71 year old Luxembourgish-speaking female with PMHx of DM, HTN, cystic mass of uterus, constipation, and recent pyelonephritis who presented to ED complaining of chest pain. Patient was admitted for evaluation and treatment of chest pain R/ O ACS. Plan: (1) Atypical chest pain CT Chest (07/08): No evidence of pulmonary embolism. Heterogeneity of right lower lobe pulmonary veins likely due to artifact. Questionable soft tissue density about lower lobe veins, versus artifact. Solitary right infrahilar lymph node, 1.3 cm. Uncertain significance. Recommend follow-up contrast CT examination in several months. Nonspecific mosaic attenuation bilaterally. Repeat in 3 months in clinic CXR (07/08): Diffuse increased interstitial lung markings which may be chronic versus mild edema. Few scattered nodular densities at the lung bases. No gross focal infiltrate or effusion. Tortuous ectatic aorta. Heart size within normal limits. KAVYA and EKG negative x3 Echo read pending Cardiology consulted (Dr. Bridges) - recs appreciated (2) Elevated d-dimer CT chest: negative as described above Venour Doppler negative for DVT (3) Lymph node enlargement CT chest: as described above, 1.3 cm Right infrahilar lymph node Repeat CT chest in 3 months (4) Uterine mass as described on previous admission f/u outpatient with ObGyn at clinic for Status: Chronic (5) Diabetes ISS low dose Accuchecks Crestor 2.5 mg QHS Upon discharge: metformin 500 PO BID (hold in anticipation of need for stress test) and Simvastatin 10 mg PO QHS Status: Chronic (7) HTN (hypertension) (Stable) vitals Q4 continue home med: Losartan 50 mg PO QD (8) Prophylactic measure DVT risk score: 3 SCDs Heparin 5000 U SC Q8 Dispo: Will likely be Dcd tomorrow pending Echo read and cardiology recs. Patient seen and discussed with Attending Noel Patino PGY-1 <Katy Gaspar V - Last Filed: 07/09/17 18:33> Objective - Vital Signs/Intake and Output Vital Signs (last 24 hours): Temp Pulse Resp BP Pulse Ox 98.1 F 80 18 138/85 87 L 07/09/17 16:38 07/09/17 16:38 07/09/17 16:38 07/09/17 16:38 07/09/17 16:38 Intake and Output: 07/09/17 07/09/17 06:59 18:59 Intake Total 280 Balance 280 - Medications Medications: Current Medications Aspirin (Aspirin Chewable) 81 mg PO DAILY [facility] Last Admin: 07/09/17 12:23 Dose: 81 mg Heparin Sodium (Porcine) (Heparin) 5,000 units SC Q8 [facility] Last Admin: 07/09/17 15:00 Dose: 5,000 units Insulin Human Regular (Novolin R) 0 unit SC ACHS [facility] PRN Reason: Protocol Last Admin: 07/09/17 17:23 Dose: 3 unit Losartan Potassium (Cozaar) 50 mg PO DAILY [facility] Last Admin: 07/09/17 10:58 Dose: 50 mg Rosuvastatin Calcium (Crestor) 2.5 mg PO HS [facility] Last Admin: 07/08/17 21:58 Dose: 2.5 mg - Labs Labs: 07/09/17 11:53 07/09/17 11:53 PT 11.0 SECONDS (9.7-12.2) 07/08/17 10:17 INR 1.0 07/08/17 10:17 APTT 27 SECONDS (21-34) 07/09/17 07:37 Attending/Attestation - Attestation I have personally seen and examined this patient.: Yes I have fully participated in the care of the patient.: Yes I have reviewed all pertinent clinical information, including history, physical exam and plan: Yes Notes (Text): Patient seen, examined, and case discussed with day-time resident. Patient seen at bedside with daughter this morning. Indemand truck assembler Albert Dash [id number] assisted with encounter. Patient denies any symptoms this morning. Reports she is feeling better. Patient completed echocardiogram this morning. Patient was KAVYA X2 negative; pending KAVYA and EKG at 1pm. Will follow-up with cardiology and see if patient stable for discharge tomorrow. Patient has history of diabetes, CAD risk factor. patient started on prophylactic Aspirin 81mg PO daily, currently on statin and arb for renoprotection from diabetes. Assessment/Plan: (1) Atypical chest pain * Cardiology consulted (Dr. Bridges) - recs appreciated * CT Chest (07/08): No evidence of pulmonary embolism. Heterogeneity of right lower lobe pulmonary veins likely due to artifact. Questionable soft tissue density about lower lobe veins, versus artifact. Solitary right infrahilar lymph node, 1.3 cm. Uncertain significance. Recommend follow-up contrast CT examination in several months. Nonspecific mosaic attenuation bilaterally. * Repeat in 3 months in clinic * CXR (07/08): Diffuse increased interstitial lung markings which may be chronic versus mild edema. Few scattered nodular densities at the lung bases. No gross focal infiltrate or effusion. Tortuous ectatic aorta. Heart size within normal limits. * KAVYA and EKG negative x3 * Echo read pending * Lipid panel: T, Cholestrol: 175, LDL: 101, HDL 27 * Bzvsicawnja4m: 8.7 improved from 9.1 last admission * Meformin held on admission for possible cath if warranted by cardiology (2) Elevated d-dimer * CT chest: negative as described above * Venous Doppler negative for DVT (3) Lymph node enlargement * CT chest: as described above, 1.3 cm Right infrahilar lymph node * Repeat CT chest in 3 months (4) Uterine mass * as described on previous admission * 06/10 Transvaginal US/Pelvis s/p hysterectomy bilateral oopherectomy; no gross abnormality identified in the pelvis. * Patient is not having post-menopausal bleeding * No appears on transvaginal/ob US in last admission Status: Chronic (5) Diabetes * Lipid panel: T, Cholestrol: 175, LDL: 101, HDL 27 * Emscbrqklyi4t: 8.7 * Losartan 50 mg PO QDaily * ISS low dose * Accuchecks QAC and HS * Crestor 2.5 mg QHS * Upon discharge: metformin 500 PO BID (hold in anticipation of need for stress test) and Simvastatin 10 mg PO QHS Status: Chronic (7) HTN (hypertension) (Stable) * Losartan 50 mg PO QDaily * Monitor vital signs (8) Prophylactic measure * DVT risk score: 3 * SCDs * Heparin 5000 U SC Q8 Dispo: Will follow-up with cardiology to see if patient is stable for discharge or warrants further workup.
--- NOTE | 2017-07-09 17:46 | CARD ---
APPROVED REPORT EXAM: Two-dimensional and M-mode echocardiogram with Doppler and color Doppler. INDICATION Chest Pain RISK FACTORS Hypertension Hyperlipidemia Diabetes M-Mode DIMENSIONS RVDd3.24 (2.1-3.2cm)Left Atrium (MM)3.35 (2.5-4.0cm) IVSd0.78 (0.7-1.1cm)Aortic Root2.93 (2.2-3.7cm) LVDd4.36 (4.0-5.6cm)Aortic Cusp Exc.1.76 (1.5-2.0cm) PWd0.85 (0.7-1.1cm)FS (%) 53 % LVDs2.05 (2.0-3.8cm)LVEF (%)84 (>50%) Mitral Valve MV E Swkmixsb795.1cm/sMV A Qrfzilca053.7cm/sE/A ratio1.0 TDI E/Lateral E'0.0E/Medial E'0.0 Tricuspid Valve TR Peak Sgfpewrs054mc/sTR Peak Gr.[id number] LEFT VENTRICLE The left ventricle is normal size. There is normal left ventricular wall thickness. The left ventricular function is normal. The left ventricular ejection fraction is within the normal range. There is normal LV segmental wall motion. Transmitral Doppler flow pattern is abnormal. RIGHT VENTRICLE The right ventricle is normal size. ATRIA The left atrium size is normal. The right atrium size is normal. AORTIC VALVE The aortic valve is normal in structure. MITRAL VALVE Mitral regurgitation is trace. TRICUSPID VALVE There is mild tricuspid regurgitation. <Conclusion> Normal LV systolic function. Diastolic dysfunction. Trace MR. Mild TR. Normal chamber size.
[2017-07-09] MEDS: Rosuvastatin Calcium 2.5 mg Tab PO SCH (21:14)
[2017-07-10] MEDS ORDERED: Pneumococcal 23-Valent Vaccine IM ONE (06:45)
[2017-07-10 07:47] LABS: HEMATOCRIT 39.4 % (34.0-47.0); MEAN CELL VOLUME 84.1 fL (81.0-99.0); MEAN CORPUSCULAR HEMOGLOBIN 28.7 pg (27.0-31.0); MEAN CORPUSCULAR HGB CONC 34.2 g/dL (33.0-37.0); MEAN PLATELET VOLUME 7.8 fL (7.2-11.7); RED CELL DISTRIBUTION WIDTH 14.3 % (11.5-14.5); WHITE BLOOD COUNT 7.5 K/uL (4.8-10.8)
[2017-07-10 08:18] VITALS: BP 125/80; RESP 20; TEMP 97.6; O2SAT 96
[2017-07-10] MEDS: (Novolin R) Insulin Human Regular 100 units/ml vial SC SCH ×2 (08:33→12:46)
[2017-07-10 08:35] LABS: CHLORIDE 101 mmol/L (98-107)
[2017-07-10 08:36] LABS: POTASSIUM 4.3 mmol/L (3.6-5.2); SODIUM 133 mmol/L (132-148)
[2017-07-10 08:38] LABS: CARBON DIOXIDE 22 mmol/L (22-30); GFR AFRICAN-AMERICAN > 60
[2017-07-10 08:39] LABS: ALB/GLOB RATIO 0.8 (1.0-2.1); ALKALINE PHOSPHATASE 87 U/L (38-126); ALT/SGPT 28 U/L (9-52); AST/SGOT 22 U/L (14-36); BILIRUBIN,TOTAL 0.8 mg/dL (0.2-1.3); BLOOD UREA NITROGEN 11 mg/dL (7-17); CALCIUM 9.2 mg/dl (8.6-10.4); GLUCOSE,RANDOM 208 mg/dL (65-105); TOTAL PROTEIN 8.4 g/dL (6.3-8.3)
[2017-07-10] MEDS ORDERED: Influenza Vaccine 60 mcg/0.5 mL SYR (4YR UP) IM ONE (09:00)
[2017-07-10 14:58] VITALS: PULSE 78
--- NOTE | 2017-07-10 15:48 | CP.PCM.DIS ---
<Noel Patino - Last Filed: 07/10/17 19:13> Provider - Provider Date of Admission: 07/08/17 14:04 Attending physician: Armando Rosado MD Consults: Cardio - Emilie Porter Time Spent in preparation of Discharge (in minutes): 40 Diagnosis - Discharge Diagnosis (1) Chest pain Status: Resolved Hospital Course - Lab Results Lab Results: Most Recent Lab Values WBC 7.5 K/uL (4.8-10.8) 07/10/17 07:37 RBC 4.68 Mil/uL (3.80-5.20) 07/10/17 07:37 Hgb 13.5 g/dL (11.0-16.0) 07/10/17 07:37 Hct 39.4 % (34.0-47.0) 07/10/17 07:37 MCV 84.1 fL (81.0-99.0) 07/10/17 07:37 MCH 28.7 pg (27.0-31.0) 07/10/17 07:37 MCHC 34.2 g/dL (33.0-37.0) 07/10/17 07:37 RDW 14.3 % (11.5-14.5) 07/10/17 07:37 Plt Count 272 K/uL (130-400) 07/10/17 07:37 MPV 7.8 fL (7.2-11.7) 07/10/17 07:37 Neut % (Auto) 44.4 % (50.0-75.0) L 07/09/17 11:53 Lymph % (Auto) 43.6 % (20.0-40.0) H 07/09/17 11:53 [place] % (Auto) 7.6 % (0.0-10.0) 07/09/17 11:53 Eos % (Auto) 3.7 % (0.0-4.0) 07/09/17 11:53 Baso % (Auto) 0.7 % (0.0-2.0) 07/09/17 11:53 Neut # 2.9 K/uL (1.8-7.0) 07/09/17 11:53 Lymph # 2.8 K/uL (1.0-4.3) 07/09/17 11:53 [place] # 0.5 K/uL (0.0-0.8) 07/09/17 11:53 Eos # 0.2 K/uL (0.0-0.7) 07/09/17 11:53 Baso # 0.0 K/uL (0.0-0.2) 07/09/17 11:53 PT 11.0 SECONDS (9.7-12.2) 07/08/17 10: INR 1.0 07/08/17 10: APTT 27 SECONDS (21-34) 07/09/17 07:37 D-Dimer, Quantitative 445 ng/mlDDU (0-243) H 07/08/17 10:17 Sodium 133 mmol/L (132-148) 07/10/17 07:37 Potassium 4.3 mmol/L (3.6-5.2) 07/10/17 07:37 Chloride 101 mmol/L (98-107) 07/10/17 07:37 Carbon Dioxide 22 mmol/L (22-30) 07/10/17 07:37 Anion Gap 14 (10-20) 07/10/17 07:37 BUN 11 mg/dL (7-17) 07/10/17 07:37 Creatinine 0.5 mg/dL (0.7-1.2) L 07/10/17 07:37 Est GFR ( Amer) > 60 07/10/17 07:37 Est GFR (Non-Af Amer) > 60 07/10/17 07:37 POC Glucose (mg/dL) 278 mg/dL (65-110) H 07/10/17 11:48 Random Glucose 208 mg/dL (65-105) H 07/10/17 07:37 Hemoglobin A1c 8.7 % (4.2-6.5) H 07/09/17 07:37 Calcium 9.2 mg/dl (8.6-10.4) 07/10/17 07:37 Total Bilirubin 0.8 mg/dL (0.2-1.3) 07/10/17 07:37 AST 22 U/L (14-36) 07/10/17 07:37 ALT 28 U/L (9-52) 07/10/17 07:37 Alkaline Phosphatase 87 U/L (38-126) 07/10/17 07:37 Total Creatine Kinase 26 U/L (30-135) L 07/09/17 14:27 CK-MB (Mass) 0.33 ng/mL (0.0-3.38) 07/09/17 14:27 Troponin I < 0.0120 ng/mL (0.00-0.120) 07/08/17 10:17 Troponin I, Quant < 0.0120 ng/mL (0.00-0.120) 07/09/17 14:27 NT-Pro-B Natriuret Pep 64.2 pg/mL (0-900) 07/08/17 10: Total Protein 8.4 g/dL (6.3-8.3) H 07/10/17 07:37 Albumin 3.9 g/dL (3.5-5.0) 07/10/17 07:37 Globulin 4.6 gm/dL (2.2-3.9) H 07/10/17 07:37 Albumin/Globulin Ratio 0.8 (1.0-2.1) L 07/10/17 07:37 Triglycerides 371 mg/dL (0-149) H 07/09/17 07:37 Cholesterol 175 mg/dL (0-199) 07/09/17 07:37 LDL Cholesterol Direct 101 mg/dL (0-129) 07/09/17 07:37 HDL Cholesterol 27 mg/dL (30-70) L 07/09/17 07:37 TSH 3rd Generation 1.01 mIU/L (0.46-4.68) 07/09/17 07:37 - Hospital Course Hospital Course: 71 year old [place]ish-Speaking female with PMHx of DM, HTN, and cystic mass of uterus admitted for chest pain, rule out ACS. Troponins were negative x 3. CXR read "Diffuse increased interstitial lung markings which may be chronic versus mild edema. Few scattered nodular densities at the lung bases. No gross focal infiltrate or effusion. Tortuous ectatic aorta. Heart size within normal limit" . D-Dimer was elevated. CT chest showed no evidence of PE but did show solitary right infrahilar lymph node (1.3cm). Patient is to get repeat CT in 3- 4 months. Echocardiogram showed diastolic dysfunction, normal systolic function with EF of 84%. Patient will go home with new meds including (Plavix, ASA daily, Lopressor 12.5, and Simvastatin) as recommended by Tool Adjuster. Losartan/HCTZ combo was changed to just Losartan due to her blood pressure being controlled without the HCTZ. Patient is stable for discharge as per medicine team and ocular care aide. Patient is to follow up at the [facility] within 1 week. Patient and patient's daughter are agreeable to plan and medications. Talent Advisor ID #'s: [id number] [phone] Patient discussed and seen with Attending Noel Patino PGY-1 - Date & Time of H&P Date of H&P: 07/10/17 Time of H&P: 17:00 Discharge Exam - Head Exam Head Exam: ATRAUMATIC, NORMAL INSPECTION, NORMOCEPHALIC - Eye Exam Eye Exam: EOMI, Normal appearance - ENT Exam ENT Exam: Mucous Membranes Moist - Respiratory Exam Respiratory Exam: Clear to PA & Lateral, UNREMARKABLE. absent: Accessory Muscle Use - Cardiovascular Exam Cardiovascular Exam: RRR, +S1, +S2 - GI/Abdominal Exam GI & Abdominal Exam: Normal Bowel Sounds, Soft. absent: Tenderness - Extremities Exam Additional comments: No pedal edema - Neurological Exam Neurological exam: Alert, Oriented x3 - Psychiatric Exam Psychiatric exam: Normal Affect, Normal Mood - Skin Skin Exam: Normal Color, Warm Discharge Plan - Discharge Medications Prescriptions: Clopidogrel [Plavix] 75 mg PO DAILY #30 tab RX: Losartan [Cozaar] 50 mg PO DAILY #30 tab Metoprolol Tartrate [Lopressor] 12.5 mg PO DAILY #30 tab RX: Simvastatin 10 mg PO HS #30 tablet - Follow Up Plan Condition: GOOD Disposition: HOME/ ROUTINE Instructions: Metoprolol (By mouth), Simvastatin (By mouth), Losartan (By mouth ), Clopidogrel (By mouth), Chest Pain (DC) Additional Instructions: Please take new medications as instructed Please follow up with your primary medical physician. If you do not have one, you may follow up at our [facility] clinic in this hospital. Please follow up within 1 week. Referrals: Olga Rutherford MD [Staff Provider] - (Follow up Within 1 week. ) <Katy Gaspar V - Last Filed: 07/10/17 22:10> Provider - Provider Date of Admission: 07/08/17 14:04 Attending physician: Armando Rosado MD Hospital Course - Lab Results Lab Results: Most Recent Lab Values WBC 7.5 K/uL (4.8-10.8) 07/10/17 07:37 RBC 4.68 Mil/uL (3.80-5.20) 07/10/17 07:37 Hgb 13.5 g/dL (11.0-16.0) 07/10/17 07:37 Hct 39.4 % (34.0-47.0) 07/10/17 07:37 MCV 84.1 fL (81.0-99.0) 07/10/17 07:37 MCH 28.7 pg (27.0-31.0) 07/10/17 07:37 MCHC 34.2 g/dL (33.0-37.0) 07/10/17 07:37 RDW 14.3 % (11.5-14.5) 07/10/17 07:37 Plt Count 272 K/uL (130-400) 07/10/17 07:37 MPV 7.8 fL (7.2-11.7) 07/10/17 07:37 Neut % (Auto) 44.4 % (50.0-75.0) L 07/09/17 11:53 Lymph % (Auto) 43.6 % (20.0-40.0) H 07/09/17 11:53 [place] % (Auto) 7.6 % (0.0-10.0) 07/09/17 11:53 Eos % (Auto) 3.7 % (0.0-4.0) 07/09/17 11:53 Baso % (Auto) 0.7 % (0.0-2.0) 07/09/17 11:53 Neut # 2.9 K/uL (1.8-7.0) 07/09/17 11:53 Lymph # 2.8 K/uL (1.0-4.3) 07/09/17 11:53 [place] # 0.5 K/uL (0.0-0.8) 07/09/17 11:53 Eos # 0.2 K/uL (0.0-0.7) 07/09/17 11:53 Baso # 0.0 K/uL (0.0-0.2) 07/09/17 11:53 PT 11.0 SECONDS (9.7-12.2) 07/08/17 10: INR 1.0 07/08/17 10:17 APTT 27 SECONDS (21-34) 07/09/17 07:37 D-Dimer, Quantitative 445 ng/mlDDU (0-243) H 07/08/17 10:17 Sodium 133 mmol/L (132-148) 07/10/17 07:37 Potassium 4.3 mmol/L (3.6-5.2) 07/10/17 07:37 Chloride 101 mmol/L (98-107) 07/10/17 07:37 Carbon Dioxide 22 mmol/L (22-30) 07/10/17 07:37 Anion Gap 14 (10-20) 07/10/17 07:37 BUN 11 mg/dL (7-17) 07/10/17 07:37 Creatinine 0.5 mg/dL (0.7-1.2) L 07/10/17 07:37 Est GFR ( Amer) > 60 07/10/17 07:37 Est GFR (Non-Af Amer) > 60 07/10/17 07:37 POC Glucose (mg/dL) 390 mg/dL (65-110) H 07/10/17 15:55 Random Glucose 208 mg/dL (65-105) H 07/10/17 07:37 Hemoglobin A1c 8.7 % (4.2-6.5) H 07/09/17 07:37 Calcium 9.2 mg/dl (8.6-10.4) 07/10/17 07:37 Total Bilirubin 0.8 mg/dL (0.2-1.3) 07/10/17 07:37 AST 22 U/L (14-36) 07/10/17 07:37 ALT 28 U/L (9-52) 07/10/17 07:37 Alkaline Phosphatase 87 U/L (38-126) 07/10/17 07:37 Total Creatine Kinase 26 U/L (30-135) L 07/09/17 14:27 CK-MB (Mass) 0.33 ng/mL (0.0-3.38) 07/09/17 14:27 Troponin I < 0.0120 ng/mL (0.00-0.120) 07/08/17 10:17 Troponin I, Quant < 0.0120 ng/mL (0.00-0.120) 07/09/17 14:27 NT-Pro-B Natriuret Pep 64.2 pg/mL (0-900) 07/08/17 10:17 Total Protein 8.4 g/dL (6.3-8.3) H 07/10/17 07:37 Albumin 3.9 g/dL (3.5-5.0) 07/10/17 07:37 Globulin 4.6 gm/dL (2.2-3.9) H 07/10/17 07:37 Albumin/Globulin Ratio 0.8 (1.0-2.1) L 07/10/17 07:37 Triglycerides 371 mg/dL (0-149) H 07/09/17 07:37 Cholesterol 175 mg/dL (0-199) 07/09/17 07:37 LDL Cholesterol Direct 101 mg/dL (0-129) 07/09/17 07:37 HDL Cholesterol 27 mg/dL (30-70) L 07/09/17 07:37 TSH 3rd Generation 1.01 mIU/L (0.46-4.68) 07/09/17 07:37 Attending/Attestation - Attestation I have personally seen and examined this patient.: Yes I have fully participated in the care of the patient.: Yes I have reviewed all pertinent clinical information, including history, physical exam and plan: Yes Notes (Text): Patient seen, examined, and case discussed with day-time resident. Patient seen at bedside with daughter this morning. [employer] traveling repair accountant Leyla Melendez assisted with encounter. Patient denies further episodes of chest pain, palpitations, nor shortness of breathe. KAVYA X3 is negative. Echocardiogram completed does not show systolic function. Resident spoke with Dr. Bridges, cardiology on the case-->patient is stable for discharge recommended for outpatient stress test; recommended for Aspirin 81mg PO daily, Plavix 75mg PO daily, beta-mario (Lopressor 12.5mg PO daily started) , statin (Simvastatin on discharge; Crestor) in hospital. Reviewed and discussed medications with both daughter and patient at bedside with assistance with translation. Advised patient's to stop valsartan/HCTZ and c/w Losartan to avoid double dosing on ARB medication. Explained to daughter: valsaratan and losartan in the same drug family and do the same function. held diuretic on admission. Blood pressure within normal. patient started on low dose beta-mario. Discussed with patient and daughter, given patient has diabetes, which is cardiac risk factor, she will be risk for heart problems including heart attack. She is advised that if she feels chest pain, palpitations, dizziness, increased gerd more than usual to come to emergency room for evaluation. Patient is also aware if has any black stool, blood in stool to stop aspirin and come to emergency room for evaluation. New prescription: 1) Simvastatin 10mg PO qHS (discussed side effects including muscle aches and pains to be aware of) 2) Lopressor 12.5mg PO once a daily (blood pressure and cardioprotective) 3) Plavix 75mg once a day (cardiology recommendation) 4) Cozaar 50mg once a daily (30 pills/1 refill) Old prescription to discontinue 1) advised to stop valasartan/Hctz Old prescription to continue 1) patient is insulin (not metformin) which she takes 2) baby aspirin 3) pepcid for gerd 4) Stool softners as needed for constipation. Patient has follow-up with [facility] set for July 30. Advised to keep the appointment and to follow-up. patient will need outpatient cardiology referral if available through the clinic for outpatient stress test. Discharge instructions discussed in detail with patient and daughter with assistance of traveling repair accountant machine in patient's mother tongue: leyla. Patient will also need followup for abnormal lymph node noted in CT chest in 3 months. Follow-up with ob-industrial designer noted uterine mass which appears resolved in recent pelvic US as outpatient. This is a summary of patient's hospitalization. Please see EMR for further details. Discharge diagnoses: (1) Atypical chest pain-->resolved * Cardiology consulted (Dr. Bridges) - recs appreciated * Discussed with cardiology-->stable for discharge * Recommend Aspirin/Plavix/beta mario/statin/arb on discharge * Will need outpatient stress test * CT Chest (07/08): No evidence of pulmonary embolism. Heterogeneity of right lower lobe pulmonary veins likely due to artifact. Questionable soft tissue density about lower lobe veins, versus artifact. Solitary right infrahilar lymph node, 1.3 cm. Uncertain significance. Recommend follow-up contrast CT examination in several months. Nonspecific mosaic attenuation bilaterally. * Repeat in 3 months in clinic * CXR (07/08): Diffuse increased interstitial lung markings which may be chronic versus mild edema. Few scattered nodular densities at the lung bases. No gross focal infiltrate or effusion. Tortuous ectatic aorta. Heart size within normal limits. * KAVYA and EKG negative x3 * Echo read and discussed * Lipid panel: T, Cholestrol: 175, LDL: 101, HDL 27 * Zxxydhhhbbb1w: 8.7 improved from 9.1 last admission (2) Elevated d-dimer--Resolved * CT chest: negative as described above * Venous Doppler negative for DVT (3) Lymph node enlargement--Chronic * CT chest: as described above, 1.3 cm Right infrahilar lymph node * Repeat CT chest in 3 months (4) Uterine mass * as described on previous admission * 06/10 Transvaginal US/Pelvis s/p hysterectomy bilateral oopherectomy; no gross abnormality identified in the pelvis. * Patient is not having post-menopausal bleeding * No appears on transvaginal/ob US in last admission Status: Chronic (5) Diabetes-->chronic * Lipid panel: T, Cholestrol: 175, LDL: 101, HDL 27 * Sgnqmqjcnpb8f: 8.7 * Losartan 50 mg PO QDaily--provided upon discharge * ISS low dose * Accuchecks QAC and HS * Crestor 2.5 mg QHS-->switched for Simvastatin on discharge * Aspirin 81mg Po daily-->continue on discharge * Patient is on insulin regimen (not metformin)-->c/w on discharge Status: Chronic (7) HTN (hypertension) (Stable) * Losartan 50 mg PO QDaily-->continue on discharge * Lopressor 12.5mg PO daily-->continue on discharge * Monitor vital signs (8) Prophylactic measure * DVT risk score: 3 * SCDs * Heparin 5000 U SC Q8.
--- NOTE | 2017-07-10 23:47 | CARD ---
APPROVED REPORT EKG Measurement Heart [id number] <Conclusion> Sinus rhythm with marked sinus arrhythmia Otherwise normal ECG
[2017-07-12] MEDS ORDERED: Influenza Vaccine 60 mcg/0.5 mL SYR (4YR UP) IM ONE (10:00)
== END 2017-07-10 16:15 | disposition home or self-care (01) ==
LOC: C.ER 09:15 → C.9E 14:04 → C.5S 20:04
PROVIDERS: ADMIT Family Medicine; ATTEND Family Medicine
DX: R07.89 Other chest pain (principal); I10 Essential (primary) hypertension; R79.1 Abnormal coagulation profile; K59.00 Constipation, unspecified
CPT/HCPCS: 36415; 71020; 71275; 80048; 80053; 80061; 82550; 82553; 82948; 83036; 83880; 84443; 84484; 85025; 85027; 85378; 85610; 85730; 93005; 93306; 93970; 99285; G0378; J1644; Q9967

== ENCOUNTER → 2019-01-20 | Outpatient (CLI) | payer OTHER | LOC: C.LAB 11:01 | DX: E11.65 Type 2 diabetes mellitus with hyperglycemia (principal); E78.00 Pure hypercholesterolemia, unspecified ==